=== PATIENT | female | born 1975 | race Caucasian/White ===

== ENCOUNTER 2023-05-18 19:30 | Emergency (ER) | payer BC, SELFPAY ==
[2023-05-18 19:39] VITALS: BP 124/90; PULSE 99; RESP 16; TEMP 36.6; O2SAT 99; BMI 38.6
--- NOTE | 2023-05-18 19:59 | ED_ITS ---
HPI - Eye Problem General Stated complaint: UPPER EXTREMITY PAIN L EYE Time Seen by Provider: 05/18/23 19:55 Source: patient Mode of arrival: walk-in Limitations: no limitations History of Present Illness HPI Narrative: seen this past Saturday for a sty left eye lid and given ointment by urgent care. has not improved and now the left upper eyelid is swollen. Eye swollen shut. She is able to manually open her eye and then she can see. she does not have much pain because she has an unexplained numbness of her left face for the past year or longer etiology still remains unclear. she is followed by neurology. No headache or dizziness Related Data Allergies Allergy/AdvReac Type Severity Reaction Status Date / Time aspirin AdvReac Verified 05/18/23 19:38 Review of Systems ROS Status of ROS 10 or more systems reviewed and unremark able except as noted in history and below [facility] Social History Smoking status: Never smoker Exam Constitutional Vital Signs, click to edit/add: Last Vital Signs Temp 97.8 F 05/18/23 19:39 Pulse 99 H 05/18/23 19:39 Resp 16 05/18/23 19:39 BP 124/90 05/18/23 19:39 Pulse Ox 99 05/18/23 19:39 Common normals: no apparent distress, average body habitus, oriented x3, no limitations, healthy appearing, alert and well nourished [facility] Common normals: normocephalic and head/scalp atraumatic Eye Common normals: PERRL, EOMs intact bilaterally and conjunctivae normal Other: left upper eyelid is erythematous and swollen. mild tenderness. no photophobia Respiratory Common normals: normal respiratory effort, no retractions, no use of accessory muscles and clear to auscultation bilaterally Cardio Common normals: regular rate, regular rhythm, S1 normal heart sound and S2 normal heart sound Extremity Common normals: normal to inspection and full ROM Neuro Common normals: oriented x3, CN's II-XII intact bilaterally, moves all extremities and no focal motor deficits Psych Appearance: grossly normal Course Vital Signs Vital signs: Vital Signs Temperature 97.8 F 05/18/23 19:39 Pulse Rate 99 H 05/18/23 19:39 Respiratory Rate 16 05/18/23 19:39 Blood Pressure 124/90 05/18/23 19:39 Pulse Oximetry 99 05/18/23 19:39 Temperature 97.8 F 05/18/23 19:39 Pulse Rate 99 H 05/18/23 19:39 Respiratory Rate 16 05/18/23 19:39 Blood Pressure 124/90 05/18/23 19:39 Pulse Oximetry 99 05/18/23 19:39 MDM - Eye Problem MDM Narrative Medical decision making narrative: patient presents with infection of the left upper eyelid that apparently started as a sty. Patient given injection of Rocephin and discharged home with Augmentin. Advised of close follow up Discharge Plan Discharge Chief Complaint: Eye Problems Clinical Impression: Cellulitis of left upper eyelid Patient Disposition: Home, Self-Care Instructions: Cellulitis (ED) Additional Instructions: have eye rechecked in a couple of days. Return if any worsening Stand Alone Forms: Portal Instructions Referrals: Physician,Non-Staff, MD [Primary Care Provider] - 1 week
[2023-05-18] MEDS: CEFTRIAXONE 1,000 MG, LIDOCAINE HCL/PF 2.1 ML IM (20:32)
== END 2023-05-18 20:44 | disposition home or self-care (01) ==
PROVIDERS: Emergency Provider Internal Medicine
DX: H00.034 Abscess of left upper eyelid (principal)
CPT/HCPCS: 96372; 99284; J0696

== ENCOUNTER 2023-06-08 20:32 | Emergency (ER) | payer BC, SELFPAY ==
[2023-06-08 20:36] VITALS: BP 142/78; PULSE 83; RESP 16; TEMP 36.7; O2SAT 96; BMI 38.6
--- OUTSIDE RECORDS SUMMARY | 2023-06-08 20:40 | XMS_ITS | CCD ---
Author Name Unknown Address [address] [facility] [address] [address] [place] [address] Organization [facility] Care Team Providers Care Net Developer Consultant Name Role Phone Xie, Kaley R Unavailable Unavailable Xie, Kaley R Unavailable Unavailable Xie, Kaley R Unavailable Unavailable BARBIE, DR BERNAL Primary Care Unavailable PAY, DR RIVERA Admitting Unavailable PAY, DR RIVERA Attending Unavailable WEST, DR BRENNEN Dow Consulting Unavailable PAY, DR RIVERA Consulting Unavailable AHMEDJUDITH Consulting Unavailable KAPLER, TALIB Admitting Unavailable KAPAYLEEN, TALIB Attending Unavailable BARBIE, DR BERNAL Primary Care Unavailable EMMA, DR LUCILLE Patel Consulting Unavailable KAPLER, TALIB Consulting Unavailable BARBIE, DR BERNAL Primary Care Unavailable REINECK, DR LIYA Muñoz Admitting Unavailabl e REINECK, DR LIYA Muñoz Attending Unavailabl e REINECK, DR LIYA Muñoz Consulting Unavailabl e BARBIE, DR BERNAL Primary Care Unavailable REINECK, DR LIYA Muñoz Admitting Unavailabl e REINECK, DR LIYA Muñoz Attending Unavailabl e REINECK, DR LIYA Muñoz Consulting Unavailabl e BARBIE, DR BERNAL Primary Care Unavailable GABBY REYNOLDS Consulting Unavailable SHANTE, JUANJOSE Admitting Unavailable SHANTE, JUANJOSE Attending Unavailable SHANTE, JUANJOSE Admitting Unavailable SHANTE, JUANJOSE Attending Unavailable TMARA, DR LAZARO LISTED Primary Care UnavailGABBY Olivera Consulting Unavailable BRENNEN ZULETA Consulting Unavailable Provider, None Primary Care Provider Unavailabl AMERICO Medeiros Admitting Unavailable AMERICO CADET Attending Unavailable QUENTIN LARIOS Referring Unavailable PROVIDER, NONE Primary Care Unavailable QUENTIN LARIOS Referring Unavailable PROVIDER, NONE Primary Care Unavailable Charmaine Tomlin MD Primary Care Provider Americo Cadet Unavailable DIVINA GRIFFIN Attending Unavailable FISH CALDWELL Referring Unavailable HOY, CHARMAINE M Primary Care Unavailable HOY, CHARMAINE M Primary Care Unavailable NAJM, IMAD Attending Unavailable NAJM, IMAD Admitting Unavailable HOY, CHARMAINE M Primary Care Unavailable WARBEL, SIN Referring Unavailable HOY, CHARMAINE M Primary Care Unavailable Soriano, Charlene Unavailable Soriano, DO Charlene A Primary Care Provider Soriano, DO Charlene A Attending Provider [phone] MD Americo Cadet Attending Provider Blades, Ele Unavailable Soriano, DO Charlene A Primary Care Provider Christie, DO Charlene A Attending Provider MD Ele Dubose Attending Provider [phone] Soriano, DO Charlene A Primary Care Provider MD Camacho Koch Attending Provider DO Aidan More [facility] Cadet MD, Americo B Unavailable Karly Roberts Unavailable Soriano, DO Charlene A Primary Care Provider DO Schuyler Lazar Emergency Provider DO Aidan More Emergency Provider DO Peggy Grier Emergency Provider Soriano, Charlene A Primary Care Unavailable Blades, Ele A Admitting Unavailable Blades, Ele A Attending Unavailable Christie, Charlene A Primary Care Unavailable Camacho Koch Admitting Unavailable Camacho Koch Attending Unavailable Soriano, Charlene A Primary Care Unavailable Soriano, Charlene A Attending Unavailable Soriano, Charlene A Admitting Unavailable Soriano, Charlene A Primary Care Unavailable Peggy Marks Admitting Unavailable Peggy Marks Attending Unavailable Aidan More Admitting Unavailable Aidan More Attending Unavailable Christie, Charlene A Primary Care Unavailable Schuyler Lazar Admitting Unavailable Schuyler Lazar Attending Unavailable Soriano, Charlene A Primary Care Unavailable Aidan More Admitting Unavailable Aidan More Attending Unavailable Charlene Soriano Primary Care Unavailable Charlene Soriano Primary Care Unavailable Charlene Soriano Attending Unavailable Charlene Soriano Admitting Unavailable Charlene Soriano Primary Care Unavailable Americo Cadet Admitting Unavailable Americo Cadet Attending Unavailable Allergies Allergy Classification Reported Allergen(s) Allergy Type Date of Onset Reaction(s) Facility (20 sources) Aspirin; Translations: [ASPIRIN] Drug Allergy 04-28-2020 Intolerance [facility] (9 sources) venom-honey bee; Translations: [venom-honey bee] Allergy to substance 02-21-2021 Swelling [facility] (1 source) Aspirin Drug Allergy 04-09-2023 [facility] Repository Medications Current Medications Medication Drug Class(es) Dates Sig (Normalized) Sig (Original) Acetaminophen (1 source) Start: 11-27-2021 acetaminophen (TYLENOL) tablet 650 mg [id number] actuat albuterol 0.09 mg/actuat metered dose inhaler (14 sources) beta2-Adrenergic Agonist Start: 02-20-2021 take 1 puff(s) by inhalation once Albuterol Sulfate Active 2 PUFF INHALATION Once February 20, 2021 12:00am albuterol HFA (P ROVENTIL HFA, VENTOLIN HFA) 90 mcg/actuation inhaler Ventolin HFA 90 mcg/actuation aerosol inhaler 0 Active albuterol sulfat e HFA (PROVENTIL;VENTOLIN;PROAIR) 108 (90 Base) MCG/ACT inhaler Ventolin HFA 90 mcg/actuation aerosol inhaler 0 Active Comment on above: Ventolin HFA 90 mcg/ actuation aerosol inhaler famotidine 40 mg oral tablet (3 sources) Histamine-2 Receptor Antagonist Start: take 1 tablet by mouth once daily Famotidine (Pepcid) 40 mg tablet Active 40 MG PO Daily March 16, 2023 12:00am hydrocortisone 25 mg/ml topical cream (3 sources) Corticosteroid Start: Hydrocortisone Active 1 APPLIC TOPICAL Three times daily March 16, 2023 12:00am lamoTRIgine 100 mg oral tablet (20 sources) Mood Stabilizer, Anti-epileptic Agent Start: 023 take 100 mg by mouth twice daily Lamotrigine Active 100 MG PO Twice daily November 20, 2022 11:00pm Start: 03-09-2022 lamoTRIgine (L AMICTAL) 25 mg tablet PLEASE SEE ATTACHED FOR DETAILED DIRECTIONS 0 03/09/2022 Active Start: 11-16-2021 LAMICTAL 25 MG tablet Week 1 and 2: 25 mg/day; Weeks 3 and 4: 50 mg/day; Week 5: 50 mg BID, Week 6: 50 mg am and 100 mg HS, Week 7: 100 mg BID 120 tablet 3 11/16/2021 Active Comment on above: PLEASE SEE ATTACHED FOR DETAILED DIRECTIONS levothyroxine sodium 0.137 mg oral tablet (20 sources) l-Thyroxine Start: 05-10-19 End: 06-10-19 take 1 capsule by mouth once daily before breakfast levothyroxine 137 mcg cap Take 1 capsule by mouth daily before breakfast. Please follow up with primary care doctor for more prescription 30 capsule 0 05/10/2022 06/09/2022 Active Start: 01-23-2021 End: 08-12-2022 take 137 ug by mouth once daily Levothyroxine Active 1 37 MCG PO Daily January 22, 2021 11:00pm take 1 tablet by kolton th once daily in the morning Synthroid 137 MCG 1 tablet on an empty stomach in the morning Orally Once a day for 90 days Active Comment on above: Take 1 capsule by mo uth daily before breakfast. Please follow up with primary care doctor for more prescription Take 1 tablet by kolton th daily before breakfast. 1 ml LORazepam 2 mg/ml injection (9 sources) Benzodiazepine Start: 11-27-2021 LORazepam (ATIVAN) injection 1 mg Start: 01-23-2021 End: 02-20-2021 take 0.5 mg by mouth twice daily Lorazepam Discontinued 0.5 MG PO Twice daily January 22, 2021 11:00pm February 20, 2021 8:37am ondansetron (ZOFRAN-ODT) disintegrating tablet 4 mg (1 source) Start: 11-27-2021 ondansetron (Z OFRAN-ODT) disintegrating tablet 4 mg predniSONE 10 mg oral tablet (5 sources) Start: 03-16-2023 prednisone 10 mg 5 tablets for 2 days, 4 tablets x2 days, then 3 x2 days, 2 x2 days, 1 x2 days Orally as directed for 10 days Mar, Active Start: 03-16-2023 take 50 mg by mouth once daily Prednisone Active 50 MG PO Daily 7 March 16, 2023 12:00am rimegepant 75 mg disintegrating oral tablet (2 sources) Start: 04-09-2023 take 1 tablet by mouth once daily as needed Nurtec 75 MG 1 tablet on the tongue and allow to dissolve PRN migraine Orally daily for 30 days Apr, Active Completed/Discontinued Medications Medication Drug Class(es) Dates Sig (Normalized) Sig (Original) acyclovir 400 mg oral tablet (8 sources) Herpesvirus Nucleoside Analog DNA Polymerase Inhibitor, Herpes Simplex Virus Nucleoside Analog DNA Polymerase Inhibitor, Herpes Zoster Virus Nucleoside Analog DNA Polymerase Inhibitor Start: 01-23-2021 End: 02-20-2021 take 400 mg by mouth five times daily Acyclovir Discontinued 400 MG PO 5 times per day January 22, 2021 11:00pm February 20, 2021 8:37am DULoxetine 30 mg delayed release oral capsule (20 sources) Serotonin and Norepinephrine Reuptake Inhibitor Start: 11-28-2021 take 1 capsule by mouth once daily in the morning 120 mg, Oral, EVERY MORNING, First dose on Sat11/28/21 at 0900, Until Discontinued Do not crush or break. May add contents of capsule to apple juice or apple sauce, but not chocolate. Start: 01-23-2021 take 120 mg by mouth once danitza y Duloxetine Active 120 MG PO Daily January 22, 2021 11:00pm take 2 capsules by m outh every twenty-four hours Cymbalta 60 MG 2 capsules Orally Once a day for 90 days Active DULoxetine (CYMB MIK) 60 mg capsule Take 60 mg by mouth. 0 Active Comment on above: Take 60 mg by mouth. 0.4 ml enoxaparin sodium 100 mg/ml prefilled syringe (1 source) Low Molecular Weight Heparin Start: 11-28-19 inject 40 mg by subcutaneous injection once daily 40 mg, SubCUTAneous, DAILY, First dose on Sat11/27/21 at 1445, Until Discontinued Indication of Use: Prophylaxis-DVT/PE levETIRAcetam 1000 mg oral tablet (10 sources) Start: 08-24-19 End: 11-30-19 take 1 tablet by mouth twice daily levETIRAcetam (KEPPRA) 1000 MG tablet TAKE 1 TABLET BY MOUTH TWICE A DAY 0 08/23/2021 11/29/2021 Discontinued (Stop Taking at Discharge) Start: 02-22-2021 End: 11-21-2022 take 1 dose by mouth twice daily Levetiracetam Discontinued 500 MG PO Twice daily 60 February 22, 2021 12:00am November 21, 2022 1:19am further refills, or dose adjustment, per neurology. methylPREDNISolone 4 mg oral tablet (8 sources) Corticosteroid Start: 01-23-2021 End: 02-20-2021 Methylprednisolone Discontinued 4 MG PO As Directed January 22, 2021 11:00pm February 20, 2021 8:37am mirtazapine 7.5 mg oral tablet (8 sources) Start: 02-22-2021 End: 11-21-2022 take 1 dose by mouth once daily at bedtime Mirtazapine Discontinued 7.5 MG PO Daily at bedtime February 22, 2021 12:00am November 21, 2022 1:20am further refills, or dose adjustment, per PCP, psychiatry, or neurology. polyethylene glycol [id number] mg powder for oral solution (1 source) Osmotic Laxative Start: 11-27-2021 17 g, Oral, DAILY PRN, Starting on Sat11/27/21 at 1426, Until Discontinued, Constipation First line therapy for constipation rOPINIRole 1 mg oral tablet (20 sources) Nonergot Dopamine Agonist Start: 11-27-2021 take 4 mg by mouth once daily 4 mg, Oral, NIGHTLY, First dose on Sat11/27/21 at 2100, Until Discontinued Start: 01-23-2021 take 4 mg by mouth at bedtime Ropinirole Active 4 MG PO Bedtime January 22, 2021 11:00pm Start: 07-19-2016 rOPINIRole (RE QUIP) 4 mg tablet q 24 HR. 0 07/19/2016 Active Comment on above: q 24 HR. 5 ml sodium chloride 9 mg/ml injection (3 sources) Start: 11-27-2021 take 1 dose intravenously twice daily 5-40 mL, IntraVENous, EVERY 12 HOURS SCHEDULED (2 times per day), First dose on Sat11/27/21 at 2100, Until Discontinued For Line Patency: Peripheral IV = 5 mL; Midline or Central Line = 10 mL/lumen. &nb sp;If following IV push medication, administer flush at same rate as the IV push. Flush volume is determined by type of infusion therapy being given. For non-viscous solutions use: Peripheral IV = 5 mL Midline or Central Line = 10 mL/lumen Fo r viscous solutions (i.e. blood components, parenteral nutrition, contrast media, or after obtaining blood sample) use: Peripheral IV = 10 mL Midline or Central Line = 20 mL/lumen Start: 11-27-2021 IntraVENous, a t 5-250 mL/hr, PRN, if patient receiving piggyback infusions and maintenance fluids are not ordered OR KVO fluids to protect IV site / prevent frequent line interruptions/ long duration, Starting on Sat11/27/21 at 1426 For piggyback infusion, administer at same rate as piggyback for a total of 25 mL. Enter 25 mL into dose field and piggyback rate into rate field of order. If piggyback is infusing at a rate less than 100 mL/hr, enter 25 mL into dose field and 100 mL/hr into rate field of order. For KVO fluids, enter rate of 20 mL/hr or less into rate field of order. Start: 11-27-2021 take 5-40 mL intrave nously once as needed 5-40 mL, IntraVENous, PRN, Starting on Sat11/27/21 at 1426, Until Discontinued, Line Care, After every IV line use For Line Patency: Peripheral IV = 5 mL; Midline or Central Line = 10 mL/lumen. If following IV push medication, administer flush at same rate as the IV push. Flush volume is determined by type of infusion therapy being given. For non-viscous solutions use: Peripheral IV = 5 mL Midline or Central Line = 10 mL/lumen For viscous solutions (i.e. blood components, parenteral nutrition, contrast media, or after obtaining blood sample) use: Peripheral IV = 10 mL Midline or Central Line = 20 mL/lumen triamcinolone acetonide 40 mg/ml injectable suspension (4 sources) Corticosteroid Start: 03-16-2023 Kenalog-40 Mar, 60 mg divalproex sodium 500 mg delayed release oral tablet (8 sources) Mood Stabilizer, Anti-epileptic Agent Start: 02-20-2021 End: 02-22-2021 take 500 mg by mouth twice daily Divalproex Discontinued 500 MG PO Twice daily February 20, 2021 12:00am February 22, 2021 4:23pm Problems Active Problems Problem Classification Problem Date Documented Da te Episodic/Chronic Abdominal pain (16 sources) Generalized abdominal pain; Translations: [Generalized abdominal pain] Episodic Acute bronchitis (1 source) Acute bronchitis, unspecified; Translations: [ACUTE BRONCHITIS UNSPECIFIED] Onset: 09-21-2021 Episodic Allergic reactions (4 sources) Urticaria, unspecified; Translations: [Allergic reaction] Episodic Asthma (4 sources) Asthma; Translations: [Unspecified asthma, uncomplicated] Onset: 05-08-2022 05-08-2022 Chronic Epilepsy; convulsions (20 sources) Other generalized epilepsy and epileptic syndromes, not intractable, without status epilepticus; Translations: [Epilepsy] Onset: 11-30-2020 Chronic Epilepsy; convulsions (19 sources) Unspecified convulsions; Translations: [Neurological finding] Onset: 01-02-2021 Episodic Headache; including migraine (7 sources) Migraine without aura, not intractable, without status migrainosus; Translations: [Migraine] Onset: 12-16-2020 03-25-2023 Chronic Headache; including migraine (4 sources) Headache; Translations: [Headache] 11-21-2022 Episodic Headache; including migraine (1 source) Headache; including migraine; Translations: [Headache, unspecified] Onset: 03-25-2023 Miscellaneous mental health disorders (13 sources) Conversion disorder with seizures or convulsions; 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] Onset: 12-16-2020 05-08-2022 Chronic Mood disorders (8 sources) Depressive disorder; Translations: [Depression] 02-22-2021 Chronic Nausea and vomiting (16 sources) Nausea and vomiting; Translations: [Nausea with vomiting, unspecified] Episodic Other aftercare (1 source) Other skilled nursing (current) drug therapy; Translations: [OTH CARDIOLOGY TECHNICIAN CURRENT DRUG THERAPY] Onset: 09-21-2021 Episodic Other connective tissue disease (4 sources) History of repair of hip joint; Translations: [Presence of unspecified artificial hip joint] Onset: 05-08-2022 05-08-2022 Chronic Other connective tissue disease (1 source) Facial weakness; Translations: [FACIAL WEAKNESS] Onset: 08-02-2021 Episodic Other gastrointestinal disorders (16 sources) Abdominal bloating; Translations: [Abdominal distension (gaseous)] Episodic Other hereditary and degenerative nervous system conditions (4 sources) Extrapyramidal and movement disorder, unspecified; Translations: [EXTRAPYRAMIDAL MOVEMNT DISORDER UNS] Onset: 11-20-2020 Chronic Other hereditary and degenerative nervous system conditions (8 sources) Restless legs; Translations: [Restless legs syndrome] 02-20-2021 Chronic Other nervous system disorders (4 sources) Carpal tunnel syndrome; Translations: [Carpal tunnel syndrome, unspecified upper limb] Onset: 05-08-2022 05-08-2022 Chronic Other nervous system disorders (1 source) Other speech disturbances; Translations: [OTHER SPEECH DISTURBANCES] Onset: 08-02-2021 Episodic Other nervous system disorders (1 source) Abnormal involuntary movement; Translations: [Unspecified abnormal involuntary movements] Episodic Other nervous system disorders (12 sources) Figueroa's palsy; 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] Onset: 05-08-2022 05-08-2022 Episodic Other nervous system disorders (1 source) Unspecified abnormal involuntary movements; Translations: [Unspecified abnormal involuntary movements] Onset: 05-08-2022 Episodic Other nutritional; endocrine; and metabolic disorders (1 source) Obesity, unspecified; Translations: [OBESITY UNSPECIFIED] Onset: 08-02-2021 Chronic Other nutritional; endocrine; and metabolic disorders (1 source) Body mass index (BMI) 36.0-36.9, adult; Translations: [BODY MASS INDEX BMI 36.0-36.9 ADULT] Onset: 08-02-2021 Chronic Other nutritional; endocrine; and metabolic disorders (19 sources) Body mass index 40+ - severely obese; Translations: [Morbid (severe) obesity due to excess calories] Onset: 05-10-2022 05-10-2022 Chronic Other nutritional; endocrine; and metabolic disorders (4 sources) Hypophosphatemia; Translations: [Other disorders of phosphorus metabolism] 11-21-2022 Chronic Other nutritional; endocrine; and metabolic disorders (4 sources) Hypomagnesemia; Translations: [Hypomagnesemia] 11-21-2022 Chronic Other screening for suspected conditions (not mental disorders or infectious disease) (16 sources) CT of abdomen abnormal; Translations: [Abnormal findings on diagnostic imaging of other abdominal regions, including retroperitoneum] Episodic Other skin disorders (1 source) Rash and other nonspecific skin eruption; Translations: [Rash and other nonspecific skin eruption] Onset: 03-17-2023 Episodic Residual codes; unclassified (4 sources) Obstructive sleep apnea syndrome; Translations: [Obstructive sleep apnea (adult) (pediatric)] Onset: 05-08-2022 05-08-2022 Chronic Residual codes; unclassified (4 sources) Altered mental status, unspecified; Translations: [ALTERED MENTAL STATUS UNSPECIFIED] Onset: 07-31-2021 Episodic Residual codes; unclassified (8 sources) Transient alteration of awareness; Translations: [Transient alteration of awareness] 02-20-2021 Episodic Spondylosis; intervertebral disc disorders; other back problems (13 sources) Cervical disc disorder; Translations: [Cervical disc disorder, unspecified, unspecified cervical region] Chronic Substance-related disorders (13 sources) Tobacco user; Translations: [Nicotine dependence, unspecified, uncomplicated] Chronic Thyroid disorders (20 sources) Hypothyroidism, unspecified; Translations: [Hypothyroidism] Onset: 09-21-2021 05-08-2022 Chronic Unclassified (3 sources) COUGH, UNSPECIFIED; Translations: [COUGH, UNSPECIFIED] Onset: 09-21-2021 Unclassified (1 source) CONTACT W/AND (SUSP) EXPOS COVID-19; Translations: [CONTACT W/AND (SUSP) EXPOS COVID-19] Onset: 09-21-2021 Viral infection (16 sources) Disease caused by 2019-nCoV; Translations: [COVID-19] 02-23-2021 Episodic Viral infection (1 source) Disease caused by 2019-nCoV; Translations: [UNVACCINATED COVID 19] Onset: 09-21-2021 Past or Other Problems Problem Classification Problem Date Documented Date Episodic/Chronic Immunizations and screening for infectious disease (2 sources) Other specified abnormal immunological findings in serum; Translations: [Raised antibody titer] Onset: 11-07-2022 Episodic Other nervous system disorders (1 source) Other abnormal involuntary movements; Translations: [Other abnormal involuntary movements] Onset: 11-21-2022 Episodic Other nervous system disorders (1 source) Paresthesia of skin; Translations: [Paresthesia of skin] Onset: 07-31-2022 Episodic Spondylosis; intervertebral disc disorders; other back problems (8 sources) Radiculopathy, cervical region; Translations: [Cervicalgia] Onset: 07-11-2022 Episodic Unclassified (1 source) COUGH, UNSPECIFIED; Translations: [COUGH, UNSPECIFIED] Onset: 09-19-2021 Results Test Name Value Interpretation Reference Range Facility Alanine aminotransferase [En zymatic activity/volume] in Serum or PlasmaOrdered By: Peggy Marks on 03-29-2023 ALT [Catalytic activity/Vol] 13 U/L 7-52 [facility] Albumin [Mass/volume] in Ser um or Plasma by Bromocresol green (BCG) dye binding methoOrdered By: Peggy Marks on 03-29-2023 Albumin BCG dye [Mass/Vol] 4.0 g/dL 3.5-5.7 [facility] Alkaline phosphatase [Enzyma tic activity/volume] in Serum or PlasmaOrdered By: Peggy Marks on 03-29-2023 ALP [Catalytic activity/Vol] 62 U/L 34-104 [facility] Aspartate aminotransferase [ Enzymatic activity/volume] in Serum or PlasmaOrdered By: Peggy Marks on 03-29-2023 AST [Catalytic activity/Vol] 12 U/L 13-39 [facility] Basophils Auto (Bld) [#/Vol] Ordered By: Peggy Marks on 03-29-2023 Basophils (Bld) [#/Vol] 0.1 10*3/uL 0.0-0.2 [facility] Basophils/100 WBC Auto (Bld) Ordered By: Peggy Marks on 03-29-2023 Basophils/100 WBC (Bld) 0.8 % . [facility] Bilirubin.total [Mass/volume ] in Serum or PlasmaOrdered By: Peggy Marks on 03-29-2023 Bilirubin [Mass/Vol] 0.4 mg/dL 0.3-1.0 [facility] Calcium [Mass/volume] in Ser um or PlasmaOrdered By: Peggy Marks on 03-29-2023 Calcium [Mass/Vol] 9.5 mg/dL 8.6-10.[address] [facility] Carbon dioxide, total [Moles /volume] in Serum or PlasmaOrdered By: Peggy Marsk on 03-29-2023 CO2 [Moles/Vol] 23.8 mmol/L 21.0-31.0 [facility] Chloride [Moles/volume] in S madelaine or PlasmaOrdered By: Peggy Marks on 03-29-2023 Chloride [Moles/Vol] 107 mmol/L 98-107 [facility] Complete Blood Count Auto Di ffon 03-29-2023 Basophils (Bld) [#/Vol] 0.1 10*3/uL Normal 0.0-0.2 [facility] Comment on above: Result Comment: PERF ORMED BY: [facility] [address] [place] [address] PATHOLOGIST SHAPE BRICK MOLDER MARY LOPEZ M.D. Performed By: #### C MP, CBC ####[address] Basophils/100 WBC (Bld) 0.8 % Normal . [facility] Comment on above: Performed By: #### C MP, CBC ####[address] Eosinophils (Bld) [#/Vol] 0.3 10*3/uL Normal 0.0-0.45 [facility] Comment on above: Performed By: #### C MP, CBC ####[address] Eosinophils/100 WBC (Bld) 2.0 % Normal . [facility] Comment on above: Performed By: #### C MP, CBC ####[address] Erythrocyte distribution width (RBC) [Ratio] 15.3 % Normal 11.9-15.3 [facility] Comment on above: Performed By: #### C MP, CBC ####[address] Hematocrit (Bld) [Volume fraction] 40.7 % Normal 34.0-46.4 [facility] Comment on above: Performed By: #### C MP, CBC ####[address] Hemoglobin (Bld) [Mass/Vol] 13.4 g/dL Normal 11.8-15.4 [facility] Comment on above: Performed By: #### C MP, CBC ####[address] Lymphocytes (Bld) [#/Vol] 3.1 10*3/uL Normal 1.00-4.8 [facility] Comment on above: Performed By: #### C MP, CBC ####[address] Lymphocytes/100 WBC (Bld) 22.4 % Normal . [facility] Comment on above: Performed By: #### C MP, CBC ####[address] MCH (RBC) [Entitic mass] 27.6 pg Normal 24.7-34.3 [facility] Comment on above: Performed By: #### C MP, CBC ####[address] MCV (RBC) [Entitic vol] 83.7 fL Normal 80-100 [facility] Comment on above: Performed By: #### C MP, CBC ####[address] Mean Corpuscular HGB Conc 33.0 g/dL Normal 32.0-35.0 [facility] Comment on above: Performed By: #### C MP, CBC ####[address] Monocytes (Bld) [#/Vol] 0.8 10*3/uL Normal 0.0-0.8 [facility] Comment on above: Performed By: #### C MP, CBC ####[place] [id number] [facility] Monocytes/100 WBC (Bld) 19.64 % Normal 0.00-20.00 [facility] Comment on above: Performed By: #### C MP, CBC ####[address] Monocytes/100 WBC (Bld) 5.8 % Normal . [facility] Comment on above: Performed By: #### C MP, CBC ####[address] Neutrophils (Bld) [#/Vol] 9.4 10*3/uL High 1.8-7.7 [facility] Comment on above: Performed By: #### C MP, CBC ####[address] Neutrophils/100 WBC (Bld) 69.0 % Normal . [facility] Comment on above: Performed By: #### C MP, CBC ####[address] NRBC% 0.0 /100{WBC} Normal 0-0.5 [facility] Comment on above: Performed By: #### C MP, CBC ####[place] [id number] [facility] Platelet mean volume (Bld) [Entitic vol] 8.6 fL Normal 6.3-10.7 [facility] Comment on above: Performed By: #### C MP, CBC ####[place] [id number] [facility] Platelets (Bld) [#/Vol] 438 10*3/uL Normal 150-450 [facility] Comment on above: Performed By: #### C MP, CBC ####[place] [id number] [facility] RBC (Bld) [#/Vol] 4.86 10*6/uL Normal 3.60-5.00 [facility] Comment on above: Performed By: #### C MP, CBC ####[place] [address] [place] [address] [facility] WBC (Bld) [#/Vol] 13.7 10*3/uL High 3.8-11.6 [facility] Comment on above: Performed By: #### C MP, CBC ####[address] [address] [facility] Comprehensive Metabolic Pane mildred 03-29-2023 Albumin [Mass/Vol] 4.0 g/dL Normal 3.5-5.[address] [facility] Comment on above: Performed By: #### C MP, CBC ####[address] [address] [facility] Albumin/Globulin [Mass ratio] 1.3 {ratio} Normal [facility] Comment on above: Performed By: #### C MP, CBC ####[address] [address] [facility] ALP [Catalytic activity/Vol] 62 U/L Normal 34-104 [facility] Comment on above: Performed By: #### C MP, CBC ####[address] [address] [facility] ALT [Catalytic activity/Vol] 13 U/L Normal 7-52 [facility] Comment on above: Performed By: #### C MP, CBC ####[address] [address] [facility] Anion gap [Moles/Vol] 11.8 mmol/L Normal 6.0-15.0 [facility] Comment on above: Performed By: #### C MP, CBC ####[address] [address] [facility] AST [Catalytic activity/Vol] 12 U/L Low 13-39 [facility] Comment on above: Performed By: #### C MP, CBC ####[address] [place] [address] [facility] Bilirubin [Mass/Vol] 0.4 mg/dL Normal 0.3-1.0 [facility] Comment on above: Performed By: #### C MP, CBC ####[place] [id number] [facility] Calcium [Mass/Vol] 9.5 mg/dL Normal 8.6-10.[address] [facility] Comment on above: Performed By: #### C MP, CBC ####[place] [id number] [facility] Chloride [Moles/Vol] 107 mmol/L Normal 98-107 [facility] Comment on above: Performed By: #### C MP, CBC ####[place] [id number] [facility] CO2 [Moles/Vol] 23.8 mmol/L Normal 21.0-31.0 [facility] Comment on above: Performed By: #### C MP, CBC ####[place] [id number] [facility] Creatinine [Mass/Vol] 0.90 mg/dL Normal 0.60-1.20 [facility] Comment on above: Performed By: #### C MP, CBC ####[place] [id number] [facility] Creatinine Clr Calc Pharmacy 87.78 [facility] Comment on above: Result Comment: PERF ORMED BY: [facility] [address] [place] [id number] PATHOLOGIST SHAPE BRICK MOLDER MARY LOEPZ M.D. Performed By: #### C MP, CBC ####[place] [id number] [facility] GFR/1.73 sq M.predicted MDRD (S/P/Bld) [Vol rate/Area] mL/min/{1.73_m2} [facility] Comment on above: Performed By: #### C MP, CBC ####[place] [id number] [place] Globulin (S) [Mass/Vol] 3.0 g/dL Normal [facility] Comment on above: Performed By: #### C MP, CBC ####[facility] [place] [address] [facility] Glucose [Mass/Vol] 128 mg/dL High 70-[address] [facility] Comment on above: Result Comment: [place] Glucose Reference Range is dependent on time and content of last meal. Glucose of more than 200 mg/dL in a nonstressed, ambulatory subject supports the diagnosis of Diabetes Mellitus. ADA recommended reference range Performed By: #### C MP, CBC ####[place] [address] [place] [address] [facility] Potassium [Moles/Vol] 3.6 mmol/L Normal 3.5-5.1 [facility] Comment on above: Performed By: #### C MP, CBC ####[place] [address] [place] [address] [place] Protein [Mass/Vol] 7.0 g/dL Normal 6.4-8.[address] [facility] Comment on above: Performed By: #### C MP, CBC ####[address] [address] [place] Sodium [Moles/Vol] 139 mmol/L Normal 136-[address] [facility] Comment on above: Performed By: #### C MP, CBC ####[place] [address] [place] [address] [place] Urea nitrogen [Mass/Vol] 12 mg/dL Normal 7-25 [facility] Comment on above: Performed By: #### C MP, CBC ####[place] [address] [place] [address] [place] Creatinine [Mass/volume] in Serum or PlasmaOrdered By: Peggy Marks on 03-29-2023 Creatinine [Mass/Vol] 0.90 mg/dL 0.60-1.20 [facility] ECG 12 lead ECGon 03-29-2023 ECG 12 lead ECG [facility] [place] [address] [place] [id number] Electrocardiograph Report Signed Patient: Gerardo Powell MR#: [id number] 9 : 1975 Acct:[id number] Age/Sex: 48 / F ADM Date: 03/29/23 Loc: ER Room: Type: [facility] ER Attending Dr: Ordering Provider: Peggy Marks DO Date of Service: 03/29/23 ECG/ECG 12 lead ECG: Seizure Copies to: Test Reason : Blood Pressure : 163/082 mmHG Vent. Rate : 058 BPM Atrial Rate : 058 BPM P-R Int : 146 ms QRS Dur : 100 ms QT Int : 444 ms P-R-T Axes : 054 061 058 degrees QTc Int : 435 ms Sinus bradycardia with sinus arrhythmia Otherwise normal ECG When compared with ECG of 21-NOV-2022 01:42, Vent. rate has decreased BY 30 BPM Confirmed by PEGGY MARKS DO ([id number]) on 03/29/2023 11:36:09 PM Referred By: Electronically Signed By:PEGGY MARKS DO Transcribed By: MUS Signed By Peggy Marks DO [id number] Normal [facility] Eosinophils Auto (Bld) [#/Vo l]Ordered By: Peggy Marks on 03-29-2023 Eosinophils (Bld) [#/Vol] 0.3 10*3/uL 0.0-0.45 [facility] Eosinophils/100 WBC Auto (Bl d)Ordered By: Peggy Marks on 03-29-2023 Eosinophils/100 WBC (Bld) 2.0 % . [facility] Erythrocyte distribution wid th Auto (RBC) [Ratio]Ordered By: Peggy Marks on 03-29-2023 Erythrocyte distribution width (RBC) [Ratio] 15.3 % 11.9-15.3 [facility] Globulin Calc (S) [Mass/Vol] Ordered By: Peggy Marks on 03-29-2023 Globulin (S) [Mass/Vol] 3.0 g/dL [facility] Glucose [Mass/volume] in Ser um or PlasmaOrdered By: Peggy Marks on 03-29-2023 Glucose [Mass/Vol] 128 mg/dL 70-[address] [facility] Comment on above: ADA recommended refe rence rangeRandom Glucose Reference Range is dependent on time and content of last meal. Glucose of more than 200 mg/dL in a nonstressed, ambulatory subject supports the diagnosis of Diabetes Mellitus. Hematocrit Auto (Bld) [Volum e fraction]Ordered By: Peggy Marks on 03-29-2023 Hematocrit (Bld) [Volume fraction] 40.7 % 34.0-46.4 [facility] Hemoglobin [Mass/volume] in BloodOrdered By: Peggy Marks on 03-29-2023 Hemoglobin (Bld) [Mass/Vol] 13.4 g/dL 11.8-15.4 [facility] Leukocytes [#/volume] correc travis for nucleated erythrocytes in Blood by Automated counOrdered By: Peggy Marks on 03-29-2023 WBC corrected for nucl RBC Auto (Bld) [#/Vol] 13.7 10*3/uL 3.8-11.6 [facility] Lymphocytes Auto (Bld) [#/Vo l]Ordered By: Peggy Marks on 03-29-2023 Lymphocytes (Bld) [#/Vol] 3.1 10*3/uL 1.00-4.8 [facility] Lymphocytes/100 WBC Auto (Bl d)Ordered By: Peggy Marks on 03-29-2023 Lymphocytes/100 WBC (Bld) 22.4 % . [facility] MCH Auto (RBC) [Entitic mass ]Ordered By: Peggy Marks on 03-29-2023 MCH (RBC) [Entitic mass] 27.6 pg 24.7-34.3 [facility] MCHC Auto (RBC) [Mass/Vol]Or dered By: Peggy Marks on 03-29-2023 MCHC (RBC) [Mass/Vol] 33.0 g/dL 32.0-35.0 [facility] MCV Auto (RBC) [Entitic vol] Ordered By: Peggy Marks on 03-29-2023 MCV (RBC) [Entitic vol] 83.7 fL 80-100 [facility] Monocyte distribution width [Entitic volume] in Blood by AutomatedOrdered By: Peggy Marks on 03-29-2023 Monocyte distribution width Auto (Bld) [Entitic vol] 19.64 % 0.00-20.00 [facility] Monocytes Auto (Bld) [#/Vol] Ordered By: Peggy Marks on 03-29-2023 Monocytes (Bld) [#/Vol] 0.8 10*3/uL 0.0-0.8 [facility] Monocytes/100 WBC Auto (Bld) Ordered By: Peggy Marks on 03-29-2023 Monocytes/100 WBC (Bld) 5.8 % . [facility] Neutrophils Auto (Bld) [#/Vo l]Ordered By: Peggy Marks on 03-29-2023 Neutrophils (Bld) [#/Vol] 9.4 10*3/uL 1.8-7.7 [facility] Neutrophils/100 WBC Auto (Bl d)Ordered By: Peggy Marks on 03-29-2023 Neutrophils/100 WBC (Bld) 69.0 % . [facility] No Panel InformationOrdered By: Peggy Marks on 03-29-2023 Estimated GFR (CKD-EPI) > 60.0 mL/Min [facility] Creatinine Clearance (Chem 87.78 [facility] Nucleated erythrocytes [Pres ence] in Blood by Automated countOrdered By: Peggy Marks on 03-29-2023 Nucleated RBC Auto Ql (Bld) 0.0 /100{WBC} 0-0.5 [facility] Platelet mean volume Auto (B ld) [Entitic vol]Ordered By: Peggy Marks on 03-29-2023 Platelet mean volume (Bld) [Entitic vol] 8.6 fL 6.3-10.7 [facility] Platelets Auto (Bld) [#/Vol] Ordered By: Peggy Marks on 03-29-2023 Platelets (Bld) [#/Vol] 438 10*3/uL 150-450 [facility] Potassium [Moles/volume] in Serum or PlasmaOrdered By: Peggy Marks on 03-29-2023 Potassium [Moles/Vol] 3.6 mmol/L 3.5-5.1 [facility] Protein [Mass/volume] in Ser um or PlasmaOrdered By: Peggy Marks on 03-29-2023 Protein [Mass/Vol] 7.0 g/dL 6.4-8.[address] [facility] RBC Auto (Bld) [#/Vol]Ordere d By: Peggy Maira on 03-29-2023 RBC (Bld) [#/Vol] 4.86 10*6/uL 3.60-5.00 [facility] Serum or plasma albumin/glob ulin mass ratioOrdered By: Peggyayala Marks on 03-29-2023 Albumin/Globulin [Mass ratio] 1.3 {ratio} [facility] Serum or plasma anion gap de terminationOrdered By: Peggy Marks on 03-29-2023 Anion gap [Moles/Vol] 11.8 mmol/L 6.0-15.0 [facility] Sodium [Moles/volume] in Ser um or PlasmaOrdered By: Peggy Marks on 03-29-2023 Sodium [Moles/Vol] 139 mmol/L 136-[address] [facility] Urea nitrogen [Mass/volume] in Serum or PlasmaOrdered By: Peggy Marks on 03-29-2023 Urea nitrogen [Mass/Vol] 12 mg/dL 7-25 [facility] WBC Auto (Bld) [#/Vol]Ordere d By: Peggy Maira on 03-29-2023 WBC (Bld) [#/Vol] 13.7 10*3/uL 3.8-11.[address] [facility] [address] head/brain wo conon 03-26 CT head/brain wo [place] [address] CT Scan Report Signed Patient: Gerardo Powell MR#: [id number] 9 : 1975 Acct:[id number] Age/Sex: 48 / F ADM Date: 03/25/23 Loc: ER Room: Type: [facility] ER Attending Dr: Copies to: Aidan More DO Ordering Provider: Aidan More DO Date of Service: 03/25/23 CT/CT head/brain wo con: r/o ich CT BRAIN WITHOUT CONTRAST: CLINICAL HISTORY: Headaches and vomiting COMPARISON: 01/23/2021 TECHNIQUE: Contiguous axial unenhanced images were obtained through the brain. This CT exam was performed using one or more following dose reduction techniques: Automated exposure control, adju stment of the mA and/or kV according to patient size, or use of iterative reconstruction technique. FINDINGS: The ventricles are normal in size and position. There are no areas of abnormal attenuation. There is no hemorrhage, mass effect or extra-axial collections. The imaged paranasal sinuses and mastoid air cells are clear. CT/CT head/brain wo con IMPRESSION: NO ACUTE INTRACRANIAL ABNORMALITY. Impression dictated by: Joan Medina M.D.03/26/2023 7:46 AM Dictation Location: [place] [address] Transcribed By: [facility] 03/26/23745 Dictated By: Joan Medina MD 03/26/23743 Signed By: 03/26/23745 [facility] Basic Metabolic Panelon 03-08 Anion gap [Moles/Vol] 13.6 mmol/L Normal 6.0-15.0 [facility] Comment on above: Performed By: #### B ALONSO, CBC ####[facility] [place] [address] [facility] Calcium [Mass/Vol] 9.3 mg/dL Normal 8.6-10.[address] [facility] Comment on above: Performed By: #### B MP, CBC ####[facility] [place] [address] [place] Chloride [Moles/Vol] 105 mmol/L Normal 98-107 [facility] Comment on above: Performed By: #### B MP, CBC ####[facility] [place] [address] [facility] CO2 [Moles/Vol] 23.0 mmol/L Normal 21.0-31.0 [facility] Comment on above: Performed By: #### B MP, CBC ####[facility] [address] [place] [address] [facility] Creatinine [Mass/Vol] 0.94 mg/dL Normal 0.60-1.20 [facility] Comment on above: Performed By: #### B MP, CBC ####[facility] [place] [id number] [facility] Creatinine Clr Calc Pharmacy 84.04 [facility] Comment on above: Result Comment: PERF ORMED BY: [facility] [address] [place] [address] PATHOLOGIST SHAPE BRICK MOLDER MARY LOPEZ M.D. Performed By: #### B MP, CBC ####[place] [address] GFR/1.73 sq M.predicted MDRD (S/P/Bld) [Vol rate/Area] mL/min/{1.73_m2} [facility] Comment on above: Performed By: #### B MP, CBC ####[place] [address] Glucose [Mass/Vol] 167 mg/dL High 70-[address] [facility] Comment on above: Result Comment: [place] Glucose Reference Range is dependent on time and content of last meal. Glucose of more than 200 mg/dL in a nonstressed, ambulatory subject supports the diagnosis of Diabetes Mellitus. ADA recommended reference range Performed By: #### B MP, CBC ####[place] [address] [place] [id number] [facility] Potassium [Moles/Vol] 3.6 mmol/L Normal 3.5-5.1 [facility] Comment on above: Performed By: #### B MP, CBC ####[address] Sodium [Moles/Vol] 138 mmol/L Normal 136-[address] [facility] Comment on above: Performed By: #### B MP, CBC ####[place] [id number] [facility] Urea nitrogen [Mass/Vol] 12 mg/dL Normal 7-25 [facility] Comment on above: Performed By: #### B MP, CBC ####[place] [id number] [place] Basophils Auto (Bld) [#/Vol] Ordered By: Aidan More on 03-25-2023 Basophils (Bld) [#/Vol] 0.1 10*3/uL 0.0-0.2 [facility] Basophils/100 WBC Auto (Bld) Ordered By: Aidan More on 03-25-2023 Basophils/100 WBC (Bld) 0.7 % . [facility] Calcium [Mass/volume] in Ser um or PlasmaOrdered By: Aidan More on 03-25-2023 Calcium [Mass/Vol] 9.3 mg/dL 8.6-10.[address] [facility] Carbon dioxide, total [Moles /volume] in Serum or PlasmaOrdered By: Aidan More on 03-25-2023 CO2 [Moles/Vol] 23.0 mmol/L 21.0-31.0 [facility] Chloride [Moles/volume] in S madelaine or PlasmaOrdered By: Aidan More on 03-25-2023 Chloride [Moles/Vol] 105 mmol/L 98-107 [facility] Complete Blood Count Auto Di ffon 03-25-2023 Basophils (Bld) [#/Vol] 0.1 10*3/uL Normal 0.0-0.2 [facility] Comment on above: Result Comment: PERF ORMED BY: [place] [address] PATHOLOGIST SHAPE BRICK MOLDER MARY LOPEZ M.D. Performed By: #### B MP, CBC #### [facility] [address] [place] [address] [place] Basophils/100 WBC (Bld) 0.7 % Normal . [facility] Comment on above: Performed By: #### B MP, CBC #### [facility] [address] [place] [address] [place] Eosinophils (Bld) [#/Vol] 0.2 10*3/uL Normal 0.0-0.45 [facility] Comment on above: Performed By: #### B MP, CBC #### [facility] [address] [place] [address] [place] Eosinophils/100 WBC (Bld) 1.2 % Normal . [facility] Comment on above: Performed By: #### B MP, CBC #### [facility] [address] Erythrocyte distribution width (RBC) [Ratio] 15.5 % High 11.9-15.3 [facility] Comment on above: Performed By: #### B MP, CBC #### [facility] [address] Hematocrit (Bld) [Volume fraction] 44.9 % Normal 34.0-46.4 [facility] Comment on above: Performed By: #### B MP, CBC #### [facility] [address] Hemoglobin (Bld) [Mass/Vol] 14.6 g/dL Normal 11.8-15.4 [facility] Comment on above: Performed By: #### B MP, CBC #### [facility] [address] Lymphocytes (Bld) [#/Vol] 3.1 10*3/uL Normal 1.00-4.8 [facility] Comment on above: Performed By: #### B MP, CBC #### [facility] [address] Lymphocytes/100 WBC (Bld) 22.7 % Normal . [facility] Comment on above: Performed By: #### B MP, CBC #### [facility] [address] MCH (RBC) [Entitic mass] 27.4 pg Normal 24.7-34.3 [facility] Comment on above: Performed By: #### B MP, CBC #### [facility] [address] MCV (RBC) [Entitic vol] 83.9 fL Normal 80-100 [facility] Comment on above: Performed By: #### B MP, CBC #### [facility] [address] Mean Corpuscular HGB Conc 32.6 g/dL Normal 32.0-35.0 [facility] Comment on above: Performed By: #### B MP, CBC #### [facility] [address] [place] [address] [place] Monocytes (Bld) [#/Vol] 0.8 10*3/uL Normal 0.0-0.8 [facility] Comment on above: Performed By: #### B MP, CBC #### [facility] [address] [place] [address] [place] Monocytes/100 WBC (Bld) 17.48 % Normal 0.00-20.00 [facility] Comment on above: Performed By: #### B MP, CBC #### [facility] [address] [place] [id number] [place] Monocytes/100 WBC (Bld) 5.5 % Normal . [facility] Comment on above: Performed By: #### B MP, CBC #### [facility] [address] [place] [address] [place] Neutrophils (Bld) [#/Vol] 9.6 10*3/uL High 1.8-7.7 [facility] Comment on above: Performed By: #### B MP, CBC #### [facility] [address] [place] [id number] [place] Neutrophils/100 WBC (Bld) 69.9 % Normal . [facility] Comment on above: Performed By: #### B MP, CBC #### [facility] [address] [place] [id number] [place] NRBC% 0.1 /100{WBC} Normal 0-0.5 [facility] Comment on above: Performed By: #### B MP, CBC #### [facility] [address] [place] [id number] [place] Platelet mean volume (Bld) [Entitic vol] 8.5 fL Normal 6.3-10.7 [facility] Comment on above: Performed By: #### B MP, CBC #### [facility] [address] [place] [address] [place] Platelets (Bld) [#/Vol] 473 10*3/uL High 150-450 [facility] Comment on above: Performed By: #### B MP, CBC #### [facility] [address] RBC (Bld) [#/Vol] 5.35 10*6/uL High 3.60-5.00 [facility] Comment on above: Performed By: #### B MP, CBC #### [facility] [address] WBC (Bld) [#/Vol] 13.7 10*3/uL High 3.8-11.6 [facility] Comment on above: Performed By: #### B MP, CBC #### [facility] [address] Creatinine [Mass/volume] in Serum or PlasmaOrdered By: Aidan More on 03-25-2023 Creatinine [Mass/Vol] 0.94 mg/dL 0.60-1.20 [facility] Eosinophils Auto (Bld) [#/Vo l]Ordered By: Aidan More on 03-25-2023 Eosinophils (Bld) [#/Vol] 0.2 10*3/uL 0.0-0.45 [facility] Eosinophils/100 WBC Auto (Bl d)Ordered By: Aidan More on 03-25-2023 Eosinophils/100 WBC (Bld) 1.2 % . [facility] Erythrocyte distribution wid th Auto (RBC) [Ratio]Ordered By: Aidan More on 03-25-2023 Erythrocyte distribution width (RBC) [Ratio] 15.5 % 11.9-15.3 [facility] Glucose [Mass/volume] in Ser um or PlasmaOrdered By: Aidan More on 03-25-2023 Glucose [Mass/Vol] 167 mg/dL 70-[address] [facility] Comment on above: ADA recommended refe rence rangeRandom Glucose Reference Range is dependent on time and content of last meal. Glucose of more than 200 mg/dL in a nonstressed, ambulatory subject supports the diagnosis of Diabetes Mellitus. Hematocrit Auto (Bld) [Volum e fraction]Ordered By: Aidan More on 03-25-2023 Hematocrit (Bld) [Volume fraction] 44.9 % 34.0-46.4 [facility] Hemoglobin [Mass/volume] in BloodOrdered By: Aidan More on 03-25-2023 Hemoglobin (Bld) [Mass/Vol] 14.6 g/dL 11.8-15.4 [facility] Leukocytes [#/volume] correc travis for nucleated erythrocytes in Blood by Automated counOrdered By: Aidan More on 03-25-2023 WBC corrected for nucl RBC Auto (Bld) [#/Vol] 13.7 10*3/uL 3.8-11.6 [facility] Lymphocytes Auto (Bld) [#/Vo l]Ordered By: Aidan More on 03-25-2023 Lymphocytes (Bld) [#/Vol] 3.1 10*3/uL 1.00-4.8 [facility] Lymphocytes/100 WBC Auto (Bl d)Ordered By: Aidan More on 03-25-2023 Lymphocytes/100 WBC (Bld) 22.7 % . [facility] MCH Auto (RBC) [Entitic mass ]Ordered By: Aidan More on 03-25-2023 MCH (RBC) [Entitic mass] 27.4 pg 24.7-34.3 [facility] MCHC Auto (RBC) [Mass/Vol]Or dered By: Aidan More on 03-25-2023 MCHC (RBC) [Mass/Vol] 32.6 g/dL 32.0-35.0 [facility] MCV Auto (RBC) [Entitic vol] Ordered By: Aidan More on 03-25-2023 MCV (RBC) [Entitic vol] 83.9 fL 80-100 [facility] Monocyte distribution width [Entitic volume] in Blood by AutomatedOrdered By: Aidan More on 03-25-2023 Monocyte distribution width Auto (Bld) [Entitic vol] 17.48 % 0.00-20.00 [facility] Monocytes Auto (Bld) [#/Vol] Ordered By: Aidan More on 03-25-2023 Monocytes (Bld) [#/Vol] 0.8 10*3/uL 0.0-0.8 [facility] Monocytes/100 WBC Auto (Bld) Ordered By: Aidan More on 03-25-2023 Monocytes/100 WBC (Bld) 5.5 % . [facility] Neutrophils Auto (Bld) [#/Vo l]Ordered By: Aidan More on 03-25-2023 Neutrophils (Bld) [#/Vol] 9.6 10*3/uL 1.8-7.7 [facility] Neutrophils/100 WBC Auto (Bl d)Ordered By: Aidan More on 03-25-2023 Neutrophils/100 WBC (Bld) 69.9 % . [facility] No Panel InformationOrdered By: Aidan More on 03-25-2023 Estimated GFR (CKD-EPI) > 60.0 mL/Min [facility] Creatinine Clearance (Chem 84.04 [facility] Nucleated erythrocytes [Pres ence] in Blood by Automated countOrdered By: Aidan More on 03-25-2023 Nucleated RBC Auto Ql (Bld) 0.1 /100{WBC} 0-0.5 [facility] Platelet mean volume Auto (B ld) [Entitic vol]Ordered By: Aidan More on 03-25-2023 Platelet mean volume (Bld) [Entitic vol] 8.5 fL 6.3-10.7 [facility] Platelets Auto (Bld) [#/Vol] Ordered By: Aidan More on 03-25-2023 Platelets (Bld) [#/Vol] 473 10*3/uL 150-450 [facility] Potassium [Moles/volume] in Serum or PlasmaOrdered By: Aidan More on 03-25-2023 Potassium [Moles/Vol] 3.6 mmol/L 3.5-5.1 [facility] RBC Auto (Bld) [#/Vol]Ordere d By: Aidan More on 03-25-2023 RBC (Bld) [#/Vol] 5.35 10*6/uL 3.60-5.00 [facility] Serum or plasma anion gap de terminationOrdered By: Aidan More on 03-25-2023 Anion gap [Moles/Vol] 13.6 mmol/L 6.0-15.0 [facility] Sodium [Moles/volume] in Ser um or PlasmaOrdered By: Aidan More on 03-25-2023 Sodium [Moles/Vol] 138 mmol/L 136-[address] [facility] Urea nitrogen [Mass/volume] in Serum or PlasmaOrdered By: Aidan More on 03-25-2023 Urea nitrogen [Mass/Vol] 12 mg/dL 7-25 [facility] WBC Auto (Bld) [#/Vol]Ordere d By: Aidan More on 03-25-2023 WBC (Bld) [#/Vol] 13.7 10*3/uL 3.8-11.6 [facility] Alanine aminotransferase [En zymatic activity/volume] in Serum or PlasmaOrdered By: Aidan More on 11-21-2022 ALT [Catalytic activity/Vol] 24 U/L 7-52 [facility] Albumin [Mass/volume] in Ser um or Plasma by Bromocresol green (BCG) dye binding methoOrdered By: Aidan More on 11-21-2022 Albumin BCG dye [Mass/Vol] 3.8 g/dL 3.5-5.7 [facility] Alkaline phosphatase [Enzyma tic activity/volume] in Serum or PlasmaOrdered By: Aidan More on 11-21-2022 ALP [Catalytic activity/Vol] 60 U/L 34-104 [facility] Aspartate aminotransferase [ Enzymatic activity/volume] in Serum or PlasmaOrdered By: Aidan More on 11-21-2022 AST [Catalytic activity/Vol] 21 U/L 13-39 [facility] Basophils Auto (Bld) [#/Vol] Ordered By: Aidan More on 11-21-2022 Basophils (Bld) [#/Vol] 0.1 10*3/uL 0.0-0.2 [facility] Basophils/100 WBC Auto (Bld) Ordered By: Aidan More on 11-21-2022 Basophils/100 WBC (Bld) 0.6 % . [facility] Bilirubin.total [Mass/volume ] in Serum or PlasmaOrdered By: Aidan More on 11-21-2022 Bilirubin [Mass/Vol] 0.3 mg/dL 0.3-1.0 [facility] Calcium [Mass/volume] in Ser um or PlasmaOrdered By: Aidan More on 11-21-2022 Calcium [Mass/Vol] 9.3 mg/dL 8.6-10.[address] [facility] Carbon dioxide, total [Moles /volume] in Serum or PlasmaOrdered By: Aidan More on 11-21-2022 CO2 [Moles/Vol] 28.8 mmol/L 21.0-31.0 [facility] Chloride [Moles/volume] in S madelaine or PlasmaOrdered By: Aidan More on 11-21-2022 Chloride [Moles/Vol] 100 mmol/L 98-107 [facility] Complete Blood Count Auto Di ffon 11-21-2022 Basophils (Bld) [#/Vol] 0.1 10*3/uL Normal 0.0-0.2 [facility] Comment on above: Result Comment: PERF ORMED BY: [place] [address] PATHOLOGIST SHAPE BRICK MOLDER MARY LOPEZ M.D. Performed By: #### M G, CMP, PHOS, PRL, CBC #### [facility] [address] Basophils/100 WBC (Bld) 0.6 % Normal . [facility] Comment on above: Performed By: #### M G, CMP, PHOS, PRL, CBC #### [facility] [address] [place] [address] [place] Eosinophils (Bld) [#/Vol] 0.3 10*3/uL Normal 0.0-0.45 [facility] Comment on above: Performed By: #### M G, CMP, PHOS, PRL, CBC #### [facility] [address] [place] [address] [place] Eosinophils/100 WBC (Bld) 2.5 % Normal . [facility] Comment on above: Performed By: #### M G, CMP, PHOS, PRL, CBC #### [address] Erythrocyte distribution width (RBC) [Ratio] 14.7 % Normal 11.9-15.3 [facility] Comment on above: Performed By: #### M G, CMP, PHOS, PRL, CBC #### [address] Hematocrit (Bld) [Volume fraction] 40.9 % Normal 34.0-46.4 [facility] Comment on above: Performed By: #### M G, CMP, PHOS, PRL, CBC #### [address] Hemoglobin (Bld) [Mass/Vol] 13.4 g/dL Normal 11.8-15.4 [facility] Comment on above: Performed By: #### M G, CMP, PHOS, PRL, CBC #### [address] Lymphocytes (Bld) [#/Vol] 2.8 10*3/uL Normal 1.00-4.8 [facility] Comment on above: Performed By: #### M G, CMP, PHOS, PRL, CBC #### [address] Lymphocytes/100 WBC (Bld) 24.4 % Normal . [facility] Comment on above: Performed By: #### M G, CMP, PHOS, PRL, CBC #### [address] MCH (RBC) [Entitic mass] 27.5 pg Normal 24.7-34.3 [facility] Comment on above: Performed By: #### M G, CMP, PHOS, PRL, CBC #### [address] MCV (RBC) [Entitic vol] 83.9 fL Normal 80-100 [facility] Comment on above: Performed By: #### M G, CMP, PHOS, PRL, CBC #### [address] Mean Corpuscular HGB Conc 32.7 g/dL Normal 32.0-35.0 [facility] Comment on above: Performed By: #### M G, CMP, PHOS, PRL, CBC #### [facility] [address] [place] [address] Monocytes (Bld) [#/Vol] 1.0 10*3/uL High 0.0-0.8 [facility] Comment on above: Performed By: #### M G, CMP, PHOS, PRL, CBC #### [address] Monocytes/100 WBC (Bld) 20.09 % High 0.00-20.00 [facility] Comment on above: Result Comment: For adults in ED, MDW > 20.0 may be associated with a higher risk of sepsis during the first 12 hrs of hospital admission Performed By: #### M G, CMP, PHOS, PRL, CBC #### [facility] [address] [place] [address] Monocytes/100 WBC (Bld) 9.0 % Normal . [facility] Comment on above: Performed By: #### M G, CMP, PHOS, PRL, CBC #### [facility] [address] [place] [address] Neutrophils (Bld) [#/Vol] 7.3 10*3/uL Normal 1.8-7.7 [facility] Comment on above: Performed By: #### M G, CMP, PHOS, PRL, CBC #### [address] Neutrophils/100 WBC (Bld) 63.5 % Normal . [facility] Comment on above: Performed By: #### M G, CMP, PHOS, PRL, CBC #### [facility] [address] [place] [address] NRBC% 0.0 /100{WBC} Normal 0-0.5 [facility] Comment on above: Performed By: #### M G, CMP, PHOS, PRL, CBC #### [facility] [address] [place] [address] Platelet mean volume (Bld) [Entitic vol] 8.2 fL Normal 6.3-10.7 [facility] Comment on above: Performed By: #### M G, CMP, PHOS, PRL, CBC #### [address] Platelets (Bld) [#/Vol] 366 10*3/uL Normal 150-450 [facility] Comment on above: Performed By: #### M G, CMP, PHOS, PRL, CBC #### [address] RBC (Bld) [#/Vol] 4.87 10*6/uL Normal 3.60-5.00 [facility] Comment on above: Performed By: #### M G, CMP, PHOS, PRL, CBC #### [address] WBC (Bld) [#/Vol] 11.5 10*3/uL Normal 3.8-11.6 [facility] Comment on above: Performed By: #### M G, CMP, PHOS, PRL, CBC #### [address] Comprehensive Metabolic Pane mildred 11-21-2022 Albumin [Mass/Vol] 3.8 g/dL Normal 3.5-5.[address] [facility] Comment on above: Performed By: #### M G, CMP, PHOS, PRL, CBC #### [address] Albumin/Globulin [Mass ratio] 1.2 {ratio} Normal [facility] Comment on above: Performed By: #### M G, CMP, PHOS, PRL, CBC #### [address] ALP [Catalytic activity/Vol] 60 U/L Normal 34-104 [facility] Comment on above: Performed By: #### M G, CMP, PHOS, PRL, CBC #### [address] ALT [Catalytic activity/Vol] 24 U/L Normal 7-52 [facility] Comment on above: Performed By: #### M G, CMP, PHOS, PRL, CBC #### [facility] [address] Anion gap [Moles/Vol] 14.2 mmol/L Normal 6.0-15.0 [facility] Comment on above: Performed By: #### M G, CMP, PHOS, PRL, CBC #### [facility] [address] AST [Catalytic activity/Vol] 21 U/L Normal 13-39 [facility] Comment on above: Performed By: #### M G, CMP, PHOS, PRL, CBC #### [facility] [address] [place] [address] Bilirubin [Mass/Vol] 0.3 mg/dL Normal 0.3-1.0 [facility] Comment on above: Performed By: #### M G, CMP, PHOS, PRL, CBC #### [facility] [address] Calcium [Mass/Vol] 9.3 mg/dL Normal 8.6-10.[address] [facility] Comment on above: Performed By: #### M G, CMP, PHOS, PRL, CBC #### [facility] [address] Chloride [Moles/Vol] 100 mmol/L Normal 98-107 [facility] Comment on above: Performed By: #### M G, CMP, PHOS, PRL, CBC #### [facility] [address] [place] [address] [place] CO2 [Moles/Vol] 28.8 mmol/L Normal 21.0-31.0 [facility] Comment on above: Performed By: #### M G, CMP, PHOS, PRL, CBC #### [facility] [address] Creatinine [Mass/Vol] 0.88 mg/dL Normal 0.60-1.20 [facility] Comment on above: Performed By: #### M G, CMP, PHOS, PRL, CBC #### [facility] [address] Creatinine Clr Calc Pharmacy 100.41 [facility] Comment on above: Performed By: #### M G, CMP, PHOS, PRL, CBC #### [facility] [address] GFR/1.73 sq M.predicted MDRD (S/P/Bld) [Vol rate/Area] mL/min/{1.73_m2} [facility] Comment on above: Performed By: #### M G, CMP, PHOS, PRL, CBC #### [facility] [address] Globulin (S) [Mass/Vol] 3.3 g/dL Normal [facility] Comment on above: Performed By: #### M G, CMP, PHOS, PRL, CBC #### [address] Glucose [Mass/Vol] 81 mg/dL Normal 70-[address] [facility] Comment on above: Result Comment: [facility] Glucose Reference Range is dependent on time and content of last meal. Glucose of more than 200 mg/dL in a nonstressed, ambulatory subject supports the diagnosis of Diabetes Mellitus. ADA recommended reference range Performed By: #### M G, CMP, PHOS, PRL, CBC #### [facility] [address] Potassium [Moles/Vol] 4.0 mmol/L Normal 3.5-5.1 [facility] Comment on above: Performed By: #### M G, CMP, PHOS, PRL, CBC #### [facility] [address] Protein [Mass/Vol] 7.1 g/dL Normal 6.4-8.[address] [facility] Comment on above: Performed By: #### M G, CMP, PHOS, PRL, CBC #### [address] Sodium [Moles/Vol] 139 mmol/L Normal 136-[address] [facility] Comment on above: Performed By: #### M G, CMP, PHOS, PRL, CBC #### [facility] [address] [place] [address] [place] Urea nitrogen [Mass/Vol] 10 mg/dL Normal 7-25 [facility] Comment on above: Performed By: #### M G, CMP, PHOS, PRL, CBC #### [facility] [address] [place] [address] [place] Creatinine [Mass/volume] in Serum or PlasmaOrdered By: Aidan More on 11-21-2022 Creatinine [Mass/Vol] 0.88 mg/dL 0.60-1.20 [facility] ECG 12 lead ECGon 11-21-2022 ECG 12 lead ECG [facility] [place] [address] [place] [address] Electrocardiograph Report Signed Patient: Gerardo Powell MR#: [id number] 9 : 1975 Acct:[id number] Age/Sex: 47 / F ADM Date: 11/21/22 Loc: ER Room: Type: [facility] ER Attending Dr: Ordering Provider: Aidan More DO Date of Service: 11/21/22 ECG/ECG 12 lead ECG: Seizure Copies to: Test Reason : Blood Pressure : 122/079 mmHG Vent. Rate : 088 BPM Atrial Rate : 088 BPM P-R Int : 136 ms QRS Dur : 082 ms QT Int : 350 ms P-R-T Axes : 052 055 055 degrees QTc Int : 423 ms Normal sinus rhythm Confirmed by Aidan More DO ([id number]) on 11/21/2022 6:07:18 AM Referred By: Electronically Signed By:Aidan More DO Transcribed By: MUS Signed By Aidan More DO 0607 Normal [facility] Eosinophils Auto (Bld) [#/Vo l]Ordered By: Aidan More on 11-21-2022 Eosinophils (Bld) [#/Vol] 0.3 10*3/uL 0.0-0.45 [facility] Eosinophils/100 WBC Auto (Bl d)Ordered By: Aidan More on 11-21-2022 Eosinophils/100 WBC (Bld) 2.5 % . [facility] Erythrocyte distribution wid th Auto (RBC) [Ratio]Ordered By: Aidan More on 11-21-2022 Erythrocyte distribution width (RBC) [Ratio] 14.7 % 11.9-15.3 [facility] Globulin Calc (S) [Mass/Vol] Ordered By: Aidan More on 11-21-2022 Globulin (S) [Mass/Vol] 3.3 g/dL [facility] Glucose Glucometer (BldC) [M ass/Vol]Ordered By: Aidan More on 11-21-2022 Glucose [Mass/Vol] 77 mg/dL [facility] Comment on above: Random Glucose Refer ence Range is dependent on time and content of last meal. Glucose of more than 200 mg/dL in a nonstressed, ambulatory subject supports the diagnosis of Diabetes Mellitus. Glucose Poct Glucometerson 0 11-21-2022 Commemt1 Glu2: Cleaned Meter Normal [facility] Comment on above: Result Comment: PERF ORMED BY: [facility] [address] [place] [address] PATHOLOGIST SHAPE BRICK MOLDER MARY LOPEZ M.D. Performed By: #### G LULS ####Point of Care testing, Glucose [Mass/Vol] 77 mg/dL Normal [facility] Comment on above: Result Comment: [place] Glucose Reference Range is dependent on time and content of last meal. Glucose of more than 200 mg/dL in a nonstressed, ambulatory subject supports the diagnosis of Diabetes Mellitus. Performed By: #### G LULS ####Point of Care testing, Glucose [Mass/volume] in Ser um or PlasmaOrdered By: Aidan More on 11-21-2022 Glucose [Mass/Vol] 81 mg/dL 70-[address] [facility] Comment on above: ADA recommended refe rence rangeRandom Glucose Reference Range is dependent on time and content of last meal. Glucose of more than 200 mg/dL in a nonstressed, ambulatory subject supports the diagnosis of Diabetes Mellitus. Hematocrit Auto (Bld) [Volum e fraction]Ordered By: Aidan More on 11-21-2022 Hematocrit (Bld) [Volume fraction] 40.9 % 34.0-46.4 [facility] Hemoglobin [Mass/volume] in BloodOrdered By: Aidan More on 11-21-2022 Hemoglobin (Bld) [Mass/Vol] 13.4 g/dL 11.8-15.4 [facility] Leukocytes [#/volume] correc travis for nucleated erythrocytes in Blood by Automated counOrdered By: Aidan More on 11-21-2022 WBC corrected for nucl RBC Auto (Bld) [#/Vol] 11.5 10*3/uL 3.8-11.6 [facility] Lymphocytes Auto (Bld) [#/Vo l]Ordered By: Aidan More on 11-21-2022 Lymphocytes (Bld) [#/Vol] 2.8 10*3/uL 1.00-4.8 [facility] Lymphocytes/100 WBC Auto (Bl d)Ordered By: Aidan More on 11-21-2022 Lymphocytes/100 WBC (Bld) 24.4 % . [facility] MCH Auto (RBC) [Entitic mass ]Ordered By: Aidan More on 11-21-2022 MCH (RBC) [Entitic mass] 27.5 pg 24.7-34.3 [facility] MCHC Auto (RBC) [Mass/Vol]Or dered By: Aidan More on 11-21-2022 MCHC (RBC) [Mass/Vol] 32.7 g/dL 32.0-35.0 [facility] MCV Auto (RBC) [Entitic vol] Ordered By: Aidan More on 11-21-2022 MCV (RBC) [Entitic vol] 83.9 fL 80-100 [facility] Magnesiumon 11-21-2022 Magnesium [Mass/Vol] 1.7 mg/dL Low 1.9-2.7 [facility] Comment on above: Performed By: #### M G, CMP, PHOS, PRL, CBC #### [facility] [address] [place] [id number] [facility] Magnesium [Mass/volume] in S madelaine or PlasmaOrdered By: Aidan More on 11-21-2022 Magnesium [Mass/Vol] 1.7 mg/dL 1.9-2.7 [facility] Monocyte distribution width [Entitic volume] in Blood by AutomatedOrdered By: Aidan More on 11-21-2022 Monocyte distribution width Auto (Bld) [Entitic vol] 20.09 % 0.00-20.00 [facility] Comment on above: For adults in ED, MD W > 20.0 may be associated with a higher risk of sepsis during the first 12 hrs of hospital admission Monocytes Auto (Bld) [#/Vol] Ordered By: Aidan More on 11-21-2022 Monocytes (Bld) [#/Vol] 1.0 10*3/uL 0.0-0.8 [facility] Monocytes/100 WBC Auto (Bld) Ordered By: Aidan More on 11-21-2022 Monocytes/100 WBC (Bld) 9.0 % . [facility] Neutrophils Auto (Bld) [#/Vo l]Ordered By: Aidan More on 11-21-2022 Neutrophils (Bld) [#/Vol] 7.3 10*3/uL 1.8-7.7 [facility] Neutrophils/100 WBC Auto (Bl d)Ordered By: Aidan More on 11-21-2022 Neutrophils/100 WBC (Bld) 63.5 % . [facility] No Panel InformationOrdered By: Aidan More on 11-21-2022 Estimated GFR (CKD-EPI) > 60.0 mL/Min [facility] Creatinine Clearance (Chem 100.41 [facility] Bedside Glucose Comment Glu2: cleaned meter [facility] Nucleated erythrocytes [Pres ence] in Blood by Automated countOrdered By: Aidan More on 11-21-2022 Nucleated RBC Auto Ql (Bld) 0.0 /100{WBC} 0-0.5 [facility] Phosphate [Mass/volume] in S madelaine or PlasmaOrdered By: Aidan More on 08-16-2023 Phosphate [Mass/Vol] 2.8 mg/dL 3.7-7.2 [facility] Phosphoruson 11-21-2022 Phosphate [Mass/Vol] 2.8 mg/dL Low 3.7-7.2 [facility] Comment on above: Performed By: #### M G, CMP, PHOS, PRL, CBC #### [facility] [address] Platelet mean volume Auto (B ld) [Entitic vol]Ordered By: Aidan More on 11-21-2022 Platelet mean volume (Bld) [Entitic vol] 8.2 fL 6.3-10.7 [facility] Platelets Auto (Bld) [#/Vol] Ordered By: Aidan More on 11-21-2022 Platelets (Bld) [#/Vol] 366 10*3/uL 150-450 [facility] Potassium [Moles/volume] in Serum or PlasmaOrdered By: Aidan More on 11-21-2022 Potassium [Moles/Vol] 4.0 mmol/L 3.5-5.1 [facility] Prolactinon 11-21-2022 Prolactin 14.21 ng/mL Normal 3.34-26.72 [facility] Comment on above: Result Comment: PERF ORMED BY: [place] [address] PATHOLOGIST SHAPE BRICK MOLDER MARY LOPEZ M.D. Performed By: #### M G, CMP, PHOS, PRL, CBC #### [facility] [address] Prolactin [Mass/volume] in S madelaine or PlasmaOrdered By: Aidan More on 11-21-2022 Prolactin [Mass/Vol] 14.21 ng/mL 3.34-26.72 [facility] Protein [Mass/volume] in Ser um or PlasmaOrdered By: Aidan More on 11-21-2022 Protein [Mass/Vol] 7.1 g/dL 6.4-8.[address] [facility] RBC Auto (Bld) [#/Vol]Ordere d By: Aidan More on 11-21-2022 RBC (Bld) [#/Vol] 4.87 10*6/uL 3.60-5.00 [facility] Serum or plasma albumin/glob ulin mass ratioOrdered By: Aidan More on 11-21-2022 Albumin/Globulin [Mass ratio] 1.2 {ratio} [facility] Serum or plasma anion gap de terminationOrdered By: Aidan More on 11-21-2022 Anion gap [Moles/Vol] 14.2 mmol/L 6.0-15.0 [facility] Sodium [Moles/volume] in Ser um or PlasmaOrdered By: Aidan More on 11-21-2022 Sodium [Moles/Vol] 139 mmol/L 136-[address] [facility] Urea nitrogen [Mass/volume] in Serum or PlasmaOrdered By: Aidan More on 11-21-2022 Urea nitrogen [Mass/Vol] 10 mg/dL 7-25 [facility] WBC Auto (Bld) [#/Vol]Ordere d By: Aidan More on 11-21-2022 WBC (Bld) [#/Vol] 11.5 10*3/uL 3.8-11.6 [facility] Automated erythrocytes count in urine sediment (number/area)Ordered By: Camacho Koch on 11-07-2022 RBC Auto (Urine sed) [#/Area] 0-1 [HPF] 0-4 [facility] Automated leukocytes count i n urine sediment (number/area)Ordered By: Camacho Koch on 11-07-2022 WBC Auto (Urine sed) [#/Area] 0-1 [HPF] 0-4 [facility] Basophils Auto (Bld) [#/Vol] Ordered By: Camacho Koch on 11-07-2022 Basophils (Bld) [#/Vol] 0.0 10*3/uL 0.0-0.2 [facility] Basophils/100 WBC Auto (Bld) Ordered By: Camacho Koch on 11-07-2022 Basophils/100 WBC (Bld) 0.6 % . [facility] Bilirubin Test strip Ql (U)O rdered By: Camacho Koch on 11-07-2022 Bilirubin Ql (U) Negative Negative [facility] C reactive protein [Mass/vol ume] in Serum or PlasmaOrdered By: Camacho Koch on 11-07-2022 CRP [Mass/Vol] 1.6 mg/dL 0.0-0.5 [facility] C-Reactive Proteinon 023 C-Reactive Protein 1.6 mg/dL High 0.0-0.[address] [facility] Comment on above: Result Comment: PERF ORMED BY: [facility] [address] [place] [address] PATHOLOGIST SHAPE BRICK MOLDER MARY LOPEZ M.D. Performed By: #### C RP, CBC, ESR, ADDONUAPLUS, CREAT, CK ####[address]#### C4, C3, CH50 ####[facility] , Color Auto (U)Ordered By: Rhoda Koch on 11-07-2022 Color (U) Yellow Yellow [facility] Complement C3on 11-07-2022 Complement C3 173 mg/dL High 82-167 [facility] Comment on above: Result Comment: Perf ormed at: - [facility] [place] [id number] Director Of Cardiac Cath Lab: Chad Chowdhury PhD, Phone: [phone] Performed By: #### C RP, CBC, ESR, ADDONUAPLUS, CREAT, CK ####[address]#### C4, C3, CH50 ####[facility] , Complement C4on 11-07-2022 Complement C4 26 mg/dL Normal 12-38 [facility] Comment on above: Result Comment: PERF ORMED BY: [facility] [address] [place] [address] PATHOLOGIST SHAPE BRICK MOLDER MARY LOPEZ M.D. Performed By: #### C RP, CBC, ESR, ADDONUAPLUS, CREAT, CK ####[address]#### C4, C3, CH50 ####[facility] , Complement Total (CH50)on Complement Total (CH50) >60 Normal >41 [facility] Comment on above: Result Comment: Age Male Female 1 - 30 days Not Estab. Not Estab. 31 days - 6 months >32 >20 7 months - 17 years >39 >39 >17 years >41 >41 NOTE: The adult ( >17 years ) reference interval range is used to flag abnormals on this report. If the patient is 17 years old or younger, use the table above to determine out of range values. Performed at: [facility] [address] [id number] Director Of Cardiac Cath Lab: Chad Chowdhury PhD, Phone: [phone] PERFORMED BY: [facility] [address] [place] [address] PATHOLOGIST SHAPE BRICK MOLDER MARY LOPEZ M.D. Performed By: #### C RP, CBC, ESR, ADDONUAPLUS, CREAT, CK ####[address]#### C4, C3, CH50 ####[facility] , Complete Blood Count Auto Di ffon 11-07-2022 Basophils (Bld) [#/Vol] 0.0 10*3/uL Normal 0.0-0.2 [facility] Comment on above: Performed By: #### C RP, CBC, ESR, ADDONUAPLUS, CREAT, CK ####[address]#### C4, C3, CH50 ####[facility] , Basophils/100 WBC (Bld) 0.6 % Normal . [facility] Comment on above: Performed By: #### C RP, CBC, ESR, ADDONUAPLUS, CREAT, CK ####[facility] [place] [address] [place]#### C4, C3, CH50 ####[facility] , Eosinophils (Bld) [#/Vol] 0.2 10*3/uL Normal 0.0-0.45 [facility] Comment on above: Performed By: #### C RP, CBC, ESR, ADDONUAPLUS, CREAT, CK ####[place] [address] [place]#### C4, C3, CH50 ####[facility] , Eosinophils/100 WBC (Bld) 2.7 % Normal . [facility] Comment on above: Performed By: #### C RP, CBC, ESR, ADDONUAPLUS, CREAT, CK ####[address]#### C4, C3, CH50 ####[facility] , Erythrocyte distribution width (RBC) [Ratio] 14.5 % Normal 11.9-15.3 [facility] Comment on above: Performed By: #### C RP, CBC, ESR, ADDONUAPLUS, CREAT, CK ####[place] [address] [place]#### C4, C3, CH50 ####[facility] , Hematocrit (Bld) [Volume fraction] 40.7 % Normal 34.0-46.4 [facility] Comment on above: Performed By: #### C RP, CBC, ESR, ADDONUAPLUS, CREAT, CK ####[place] [address] [place]#### C4, C3, CH50 ####[facility] , Hemoglobin (Bld) [Mass/Vol] 13.4 g/dL Normal 11.8-15.4 [facility] Comment on above: Performed By: #### C RP, CBC, ESR, ADDONUAPLUS, CREAT, CK ####[place] [address] [place]#### C4, C3, CH50 ####[facility] , Lymphocytes (Bld) [#/Vol] 2.5 10*3/uL Normal 1.00-4.8 [facility] Comment on above: Performed By: #### C RP, CBC, ESR, ADDONUAPLUS, CREAT, CK ####[address]#### C4, C3, CH50 ####[facility] , Lymphocytes/100 WBC (Bld) 32.8 % Normal . [facility] Comment on above: Performed By: #### C RP, CBC, ESR, ADDONUAPLUS, CREAT, CK ####[address]#### C4, C3, CH50 ####[facility] , MCH (RBC) [Entitic mass] 27.8 pg Normal 24.7-34.3 [facility] Comment on above: Performed By: #### C RP, CBC, ESR, ADDONUAPLUS, CREAT, CK ####[address]#### C4, C3, CH50 ####[facility] , MCV (RBC) [Entitic vol] 84.4 fL Normal 80-100 [facility] Comment on above: Performed By: #### C RP, CBC, ESR, ADDONUAPLUS, CREAT, CK ####[place] [address] [place]#### C4, C3, CH50 ####[facility] , Mean Corpuscular HGB Conc 33.0 g/dL Normal 32.0-35.0 [facility] Comment on above: Performed By: #### C RP, CBC, ESR, ADDONUAPLUS, CREAT, CK ####[place] [address] [place]#### C4, C3, CH50 ####[facility] , Monocytes (Bld) [#/Vol] 0.5 10*3/uL Normal 0.0-0.8 [facility] Comment on above: Performed By: #### C RP, CBC, ESR, ADDONUAPLUS, CREAT, CK ####[address]#### C4, C3, CH50 ####[facility] , Monocytes/100 WBC (Bld) 6.7 % Normal . [facility] Comment on above: Performed By: #### C RP, CBC, ESR, ADDONUAPLUS, CREAT, CK ####[place] [address] [place]#### C4, C3, CH50 ####[facility] , Neutrophils (Bld) [#/Vol] 4.3 10*3/uL Normal 1.8-7.7 [facility] Comment on above: Performed By: #### C RP, CBC, ESR, ADDONUAPLUS, CREAT, CK ####[place] [address] [place]#### C4, C3, CH50 ####[facility] , Neutrophils/100 WBC (Bld) 57.2 % Normal . [facility] Comment on above: Performed By: #### C RP, CBC, ESR, ADDONUAPLUS, CREAT, CK ####[place] [address] [place]#### C4, C3, CH50 ####[facility] , NRBC% 0.1 /100{WBC} Normal 0-0.5 [facility] Comment on above: Performed By: #### C RP, CBC, ESR, ADDONUAPLUS, CREAT, CK ####[place] [address] [place]#### C4, C3, CH50 ####[facility] , Platelet mean volume (Bld) [Entitic vol] 8.4 fL Normal 6.3-10.7 [facility] Comment on above: Performed By: #### C RP, CBC, ESR, ADDONUAPLUS, CREAT, CK ####[place] [address] [address]#### C4, C3, CH50 ####[facility] , Platelets (Bld) [#/Vol] 399 10*3/uL Normal 150-450 [facility] Comment on above: Performed By: #### C RP, CBC, ESR, ADDONUAPLUS, CREAT, CK ####[address]#### C4, C3, CH50 ####[facility] , RBC (Bld) [#/Vol] 4.83 10*6/uL Normal 3.60-5.00 [facility] Comment on above: Performed By: #### C RP, CBC, ESR, ADDONUAPLUS, CREAT, CK ####[address]#### C4, C3, CH50 ####[facility] , WBC (Bld) [#/Vol] 7.5 10*3/uL Normal 3.8-11.[address] [facility] Comment on above: Performed By: #### C RP, CBC, ESR, ADDONUAPLUS, CREAT, CK ####[address]#### C4, C3, CH50 ####[facility] , Creatine Kinaseon 11-07-2022 CK [Catalytic activity/Vol] 75 U/L Normal 30-223 [facility] Comment on above: Result Comment: PERF ORMED BY: [facility] [address] [place], [place] [id number] PATHOLOGIST SHAPE BRICK MOLDER MARY LOPEZ M.D. Performed By: #### C RP, CBC, ESR, ADDONUAPLUS, CREAT, CK ####[place] [address] [address]#### C4, C3, CH50 ####[facility] , Creatine kinase [Enzymatic a ctivity/volume] in Serum or PlasmaOrdered By: Camacho Koch on 11-07-2022 CK [Catalytic activity/Vol] 75 U/L 30-223 [facility] Creatinineon 11-07-2022 Creatinine [Mass/Vol] 0.90 mg/dL Normal 0.60-1.20 [facility] Comment on above: Performed By: #### C RP, CBC, ESR, ADDONUAPLUS, CREAT, CK ####[address]#### C4, C3, CH50 ####[facility] , GFR/1.73 sq M.predicted MDRD (S/P/Bld) [Vol rate/Area] mL/min/{1.73_m2} Normal [facility] Comment on above: Performed By: #### C RP, CBC, ESR, ADDONUAPLUS, CREAT, CK ####[address]#### C4, C3, CH50 ####[facility] , Creatinine [Mass/volume] in Serum or PlasmaOrdered By: Camacho Koch on 11-07-2022 Creatinine [Mass/Vol] 0.90 mg/dL 0.60-1.20 [facility] Dipstick and Microscopicon 0 11-07-2022 Appearance (U) Clear Normal Clear [facility] Comment on above: Order Comment: Name Collection Type:: Clean-Voided Midstream Performed By: #### C RP, CBC, ESR, ADDONUAPLUS, CREAT, CK ####[address]#### C4, C3, CH50 ####[facility] , Bacteria,Urine None Seen Normal None Seen [facility] Comment on above: Order Comment: Name Collection Type:: Clean-Voided Midstream Performed By: #### C RP, CBC, ESR, ADDONUAPLUS, CREAT, CK ####[address]#### C4, C3, CH50 ####[facility] , Bilirubin,Urine Negative Normal Negative [facility] Comment on above: Order Comment: Name Collection Type:: Clean-Voided Midstream Performed By: #### C RP, CBC, ESR, ADDONUAPLUS, CREAT, CK ####[address]#### C4, C3, CH50 ####[facility] , Color (U) Yellow Normal Yellow [facility] Comment on above: Order Comment: Name Collection Type:: Clean-Voided Midstream Performed By: #### C RP, CBC, ESR, ADDONUAPLUS, CREAT, CK ####[address]#### C4, C3, CH50 ####[facility] , Glucose Ql (U) Normal Normal Normal [facility] Comment on above: Order Comment: Name Collection Type:: Clean-Voided Midstream Performed By: #### C RP, CBC, ESR, ADDONUAPLUS, CREAT, CK ####[address]#### C4, C3, CH50 ####[facility] , Hyaline Casts,Urine 0-8 Normal 0-8 [facility] Comment on above: Order Comment: Name Collection Type:: Clean-Voided Midstream Result Comment: PERF ORMED BY: [facility] [address] [place] [address] PATHOLOGIST SHAPE BRICK MOLDER MARY LOPEZ M.D. Performed By: #### C RP, CBC, ESR, ADDONUAPLUS, CREAT, CK ####[address] [place] [address] [place]#### C4, C3, CH50 ####[facility] , Ketones Ql (U) Negative Normal Negative [facility] Comment on above: Order Comment: Name Collection Type:: Clean-Voided Midstream Performed By: #### C RP, CBC, ESR, ADDONUAPLUS, CREAT, CK ####[address]#### C4, C3, CH50 ####[facility] , Leukocyte esterase Test strip Ql (U) Negative Normal Negative [facility] Comment on above: Order Comment: Name Collection Type:: Clean-Voided Midstream Performed By: #### C RP, CBC, ESR, ADDONUAPLUS, CREAT, CK ####[address]#### C4, C3, CH50 ####[facility] , Nitrite,Urine Negative Normal Negative [facility] Comment on above: Order Comment: Name Collection Type:: Clean-Voided Midstream Performed By: #### C RP, CBC, ESR, ADDONUAPLUS, CREAT, CK ####[address]#### C4, C3, CH50 ####[facility] , Occult Blood,Urine Negative Normal Negative [facility] Comment on above: Order Comment: Name Collection Type:: Clean-Voided Midstream Performed By: #### C RP, CBC, ESR, ADDONUAPLUS, CREAT, CK ####[address]#### C4, C3, CH50 ####[facility] , pH (U) 5.5 [pH] Normal 5.0-9.0 [facility] Comment on above: Order Comment: Name Collection Type:: Clean-Voided Midstream Performed By: #### C RP, CBC, ESR, ADDONUAPLUS, CREAT, CK ####[address]#### C4, C3, CH50 ####[facility] , Protein,Urine Negative Normal Negative [facility] Comment on above: Order Comment: Name Collection Type:: Clean-Voided Midstream Performed By: #### C RP, CBC, ESR, ADDONUAPLUS, CREAT, CK ####[address]#### C4, C3, CH50 ####[facility] , RBC LM.HPF (Urine sed) [#/Area] 0 /[HPF] Normal 0-4 [facility] Comment on above: Order Comment: Name Collection Type:: Clean-Voided Midstream Performed By: #### C RP, CBC, ESR, ADDONUAPLUS, CREAT, CK ####[address]#### C4, C3, CH50 ####[facility] , Specificy Sterling,Urine 1.024 Normal 1.001-1.030 [facility] Comment on above: Order Comment: Name Collection Type:: Clean-Voided Midstream Performed By: #### C RP, CBC, ESR, ADDONUAPLUS, CREAT, CK ####[address]#### C4, C3, CH50 ####[facility] , Squamous Epithelial Cell,Urine 1-2 Normal 0-2 [facility] Comment on above: Order Comment: Name Collection Type:: Clean-Voided Midstream Performed By: #### C RP, CBC, ESR, ADDONUAPLUS, CREAT, CK ####[address]#### C4, C3, CH50 ####[facility] , Urobilinogen,Urine Normal Normal Normal [facility] Comment on above: Order Comment: Name Collection Type:: Clean-Voided Midstream Performed By: #### C RP, CBC, ESR, ADDONUAPLUS, CREAT, CK ####[place] [address] [address]#### C4, C3, CH50 ####[facility] , WBC LM.HPF (Urine sed) [#/Area] 0 /[HPF] Normal 0-4 [facility] Comment on above: Order Comment: Name Collection Type:: Clean-Voided Midstream Performed By: #### C RP, CBC, ESR, ADDONUAPLUS, CREAT, CK ####[place] [address] [address]#### C4, C3, CH50 ####[facility] , Eosinophils Auto (Bld) [#/Vo l]Ordered By: Camacho Koch on 11-07-2022 Eosinophils (Bld) [#/Vol] 0.2 10*3/uL 0.0-0.45 [facility] Eosinophils/100 WBC Auto (Bl d)Ordered By: Camacho Koch on 11-07-2022 Eosinophils/100 WBC (Bld) 2.7 % . [facility] Erythrocyte Sedimentation Ra regi 11-07-2022 ESR (Bld) [Velocity] 51 mm/h High 0-19 [facility] Comment on above: Result Comment: PERF ORMED BY: [facility] [address] [place] [address] PATHOLOGIST SHAPE BRICK MOLDER MARY LOPEZ M.D. Performed By: #### C RP, CBC, ESR, ADDONUAPLUS, CREAT, CK ####[place] [address] [address]#### C4, C3, CH50 ####[facility] , Erythrocyte distribution wid th Auto (RBC) [Ratio]Ordered By: Camacho Koch on 11-07-2022 Erythrocyte distribution width (RBC) [Ratio] 14.5 % 11.9-15.3 [facility] Erythrocyte sedimentation ra te by Photometric methodOrdered By: Camacho Koch on 11-07-2022 ESR Photometric method (Bld) [Velocity] 51 mm/hr 0-19 [facility] Hematocrit Auto (Bld) [Volum e fraction]Ordered By: Camacho Koch on 11-07-2022 Hematocrit (Bld) [Volume fraction] 40.7 % 34.0-46.4 [facility] Hemoglobin [Mass/volume] in BloodOrdered By: Camacho Koch on 11-07-2022 Hemoglobin (Bld) [Mass/Vol] 13.4 g/dL 11.8-15.4 [facility] Ketones Auto test strip (U) [Mass/Vol]Ordered By: Camacho Koch on 11-07-2022 Ketones (U) [Mass/Vol] Negative Negative Fi [facility] Laboratory - UrinalysisOrder ed By: Camacho Koch on 11-07-2022 Hyaline casts LM Ql (Urine sed) 0-8 [LPF] 0-8 [facility] Leukocytes [#/volume] correc travis for nucleated erythrocytes in Blood by Automated counOrdered By: Camacho Koch on 11-07-2022 WBC corrected for nucl RBC Auto (Bld) [#/Vol] 7.5 10*3/uL 3.8-11.6 [facility] Lymphocytes Auto (Bld) [#/Vo l]Ordered By: Camacho Koch on 11-07-2022 Lymphocytes (Bld) [#/Vol] 2.5 10*3/uL 1.00-4.8 [facility] Lymphocytes/100 WBC Auto (Bl d)Ordered By: Camacho Koch on 11-07-2022 Lymphocytes/100 WBC (Bld) 32.8 % . [facility] MCH Auto (RBC) [Entitic mass ]Ordered By: Camacho Koch on 11-07-2022 MCH (RBC) [Entitic mass] 27.8 pg 24.7-34.3 [facility] MCHC Auto (RBC) [Mass/Vol]Or dered By: Camacho Koch on 11-07-2022 MCHC (RBC) [Mass/Vol] 33.0 g/dL 32.0-35.0 [facility] MCV Auto (RBC) [Entitic vol] Ordered By: Camacho Koch on 11-07-2022 MCV (RBC) [Entitic vol] 84.4 fL 80-100 [facility] Monocytes Auto (Bld) [#/Vol] Ordered By: Camacho Koch on 11-07-2022 Monocytes (Bld) [#/Vol] 0.5 10*3/uL 0.0-0.8 [facility] Monocytes/100 WBC Auto (Bld) Ordered By: Camacho Koch on 11-07-2022 Monocytes/100 WBC (Bld) 6.7 % . [facility] Neutrophils Auto (Bld) [#/Vo l]Ordered By: Camacho Koch on 11-07-2022 Neutrophils (Bld) [#/Vol] 4.3 10*3/uL 1.8-7.7 [facility] Neutrophils/100 WBC Auto (Bl d)Ordered By: Camacho Koch on 11-07-2022 Neutrophils/100 WBC (Bld) 57.2 % . [facility] Nitrite Test strip Ql (U)Ord ered By: Camacho Koch on 11-07-2022 Nitrite Ql (U) Negative Negative [facility] No Panel InformationOrdered By: Camacho Koch on 11-07-2022 Estimated GFR (CKD-EPI) > 60.0 mL/Min [facility] Creatinine Clearance (Chem N/A [facility] Total Complement (CH50) >60 U/mL >41 [facility] Comment on above: Age Male Female 1 - 30 days Not Estab. Not Estab. 31 days - 6 months >32 >20 7 months - 17 years >39 >39 >17 years >41 >41 NOTE: The adult ( >17 years ) reference interval range is used to flag abnormals on this report. If the patient is 17 years old or younger, use the table above to determine out of range values.Performed at: [facility] [id number] Director: Chad Chowdhury PhD, Phone: [phone] Nucleated erythrocytes [Pres ence] in Blood by Automated countOrdered By: Camacho Koch on 11-07-2022 Nucleated RBC Auto Ql (Bld) 0.1 /100{WBC} 0-0.5 [facility] Platelet mean volume Auto (B ld) [Entitic vol]Ordered By: Camacho Koch on 11-07-2022 Platelet mean volume (Bld) [Entitic vol] 8.4 fL 6.3-10.7 [facility] Platelets Auto (Bld) [#/Vol] Ordered By: Camacho Koch on 11-07-2022 Platelets (Bld) [#/Vol] 399 10*3/uL 150-450 [facility] Protein Auto test strip (U) [Mass/Vol]Ordered By: Camacho Koch on 11-07-2022 Protein (U) [Mass/Vol] Negative Negative Fi [facility] RBC Auto (Bld) [#/Vol]Ordere d By: Camacho Koch on 11-07-2022 RBC (Bld) [#/Vol] 4.83 10*6/uL 3.60-5.00 [facility] Serum or plasma complement C 3 measurement (mass/volume)Ordered By: Camacho Koch on 11-07-2022 Complement C3 [Mass/Vol] 173 mg/dL 82-167 [facility] Comment on above: Performed at: [address] Director: Chad Chowdhury PhD, Phone: [phone] Serum or plasma complement C 4 measurement (mass/volume)Ordered By: Camacho Koch on 11-07-2022 Complement C4 [Mass/Vol] 26 mg/dL 12-38 [facility] Specific gravity Auto test s trip (U) [Rel density]Ordered By: Camacho Koch on 11-07-2022 Specific gravity (U) [Rel density] 1.024 1.001-1.030 [facility] Squamous epithelial cells de tection in urine sediment by light microscopyOrdered By: Camacho Koch on 11-07-2022 Epithelial cells.squamous LM Ql (Urine sed) 1-2 [HPF] 0-2 [facility] Urine bacteria detection by automated methodOrdered By: Camacho Koch on 11-07-2022 Bacteria Auto Ql (U) None seen None Seen [facility] Urine clarity by refractomet ry automatedOrdered By: Camacho Koch on 11-07-2022 Clarity Refractometry automated (U) Clear Clear [facility] Urine glucose measurement by automated test strip (mass/volume)Ordered By: Camacho Koch on 11-07-2022 Glucose Auto test strip (U) [Mass/Vol] Normal mg/dL Normal [facility] Urine hemoglobin detection b y automated test stripOrdered By: Camacho Koch on 11-07-2022 Hemoglobin Auto test strip Ql (U) Negative Negative [facility] Urine leukocyte esterase det ection by automated test stripOrdered By: Camacho Koch on 11-07-2022 Leukocyte esterase Auto test strip Ql (U) Negative Negative [facility] Urobilinogen Auto test strip (U) [Mass/Vol]Ordered By: Camacho Koch on 11-07-2022 Urobilinogen (U) [Mass/Vol] Normal mg/dL Normal [facility] WBC Auto (Bld) [#/Vol]Ordere d By: Camacho Koch on 11-07-2022 WBC (Bld) [#/Vol] 7.5 10*3/uL 3.8-11.[address] [facility] pH Auto test strip (U)Ordere d By: Camacho Koch on 11-07-2022 pH (U) 5.5 [pH] 5.0-9.0 [facility] ANN-MARIE Antinuclear Antibodieson 10-15-2022 Antinuclear Abs, IFA Positive Critically abnormal . [facility] Comment on above: Result Comment: Nega tive <1:80 Borderline 1:80 Positive >1:80 Performed By: #### A NA ####[facility] ,#### ESR, BMP, CRP, CBC ####[facility] [id number] Homogeneous Pattern 1:160 High . [facility] Comment on above: Result Comment: ICAP nomenclature: AC-1 Performed By: #### A NA ####[facility] ,#### ESR, BMP, CRP, CBC ####[facility] [id number] [place] [id number] [facility] Note 1 Normal . [facility] Comment on above: Result Comment: For more information about Hep-2 cell patterns use ANApatterns.org, the official website for the International Consensus on Antinuclear Antibody (ANN-MARIE) Patterns (ICAP). A positive ANN-MARIE result may occur in healthy individuals (low titer) or be associated with a variety of diseases. See interpretation chart which is not all inclusive: Pattern Antigen Detected Suggested Disease Association Homogeneous DNA(ds,ss), SLE - High titers Nucleosomes, Histones Drug-induced SLE Speckled Sm, ENGAGEMENT SPECIALIST, SCL-70, SLE,MCTD,PSS (diffuse form), SS-A/SS-B Sjogrens Nucleolar SCL-70, PM-1/SCL High titers Scleroderma, PM/DM Centromere Centromere PSS (limited form) w/Crest syndrome variable Nuclear Dot [id number] Primary Biliary Cirrhosis Nuclear GP210, Primary Biliary Cirrhosis Membrane patricia A,B,C Performed at: [facility] [address] [id number] Director Of Cardiac Cath Lab: Chad Chowdhury PhD, Phone: [phone] PERFORMED BY: [address] [place] [address] PATHOLOGIST SHAPE BRICK MOLDER MARY LOPEZ M.D. Performed By: #### A NA ####[facility] ,#### ESR, BMP, CRP, CBC ####[place] [address] [place] [id number] [facility] Basic Metabolic Panelon 07-1 Anion gap [Moles/Vol] 10.6 mmol/L Normal 6.0-15.0 [facility] Comment on above: Performed By: #### A NA ####[facility] ,#### ESR, BMP, CRP, CBC ####[facility] [place] [address] [facility] Calcium [Mass/Vol] 9.8 mg/dL Normal 8.6-10.[address] [facility] Comment on above: Performed By: #### A NA ####[facility] ,#### ESR, BMP, CRP, CBC ####[facility] [place] [address] [facility] Chloride [Moles/Vol] 101 mmol/L Normal 98-107 [facility] Comment on above: Performed By: #### A NA ####[facility] ,#### ESR, BMP, CRP, CBC ####[place] [id number] [facility] CO2 [Moles/Vol] 28.8 mmol/L Normal 21.0-31.0 [facility] Comment on above: Performed By: #### A NA ####[facility] ,#### ESR, BMP, CRP, CBC ####[address] Creatinine [Mass/Vol] 0.88 mg/dL Normal 0.60-1.20 [facility] Comment on above: Performed By: #### A NA ####[facility] ,#### ESR, BMP, CRP, CBC ####[address] GFR/1.73 sq M.predicted MDRD (S/P/Bld) [Vol rate/Area] mL/min/{1.73_m2} Normal [facility] Comment on above: Performed By: #### A NA ####[facility] ,#### ESR, BMP, CRP, CBC ####[place] [id number] [facility] Glucose [Mass/Vol] 78 mg/dL Normal 70-[address] [facility] Comment on above: Result Comment: [place] Glucose Reference Range is dependent on time and content of last meal. Glucose of more than 200 mg/dL in a nonstressed, ambulatory subject supports the diagnosis of Diabetes Mellitus. ADA recommended reference range Performed By: #### A NA ####[facility] ,#### ESR, BMP, CRP, CBC ####[place] [id number] [facility] Potassium [Moles/Vol] 4.4 mmol/L Normal 3.5-5.1 [facility] Comment on above: Performed By: #### A NA ####[facility] ,#### ESR, BMP, CRP, CBC ####[address] Sodium [Moles/Vol] 136 mmol/L Normal 136-[address] [facility] Comment on above: Performed By: #### A NA ####[facility] ,#### ESR, BMP, CRP, CBC ####[address] Urea nitrogen [Mass/Vol] 15 mg/dL Normal 7-25 [facility] Comment on above: Performed By: #### A NA ####[facility] ,#### ESR, BMP, CRP, CBC ####[address] Basophils Auto (Bld) [#/Vol] Ordered By: Ele Blades on 10-15-2022 Basophils (Bld) [#/Vol] 0.0 10*3/uL 0.0-0.2 [facility] Basophils/100 WBC Auto (Bld) Ordered By: Ele Blades on 10-15-2022 Basophils/100 WBC (Bld) 0.4 % . [facility] C reactive protein [Mass/vol ume] in Serum or PlasmaOrdered By: Ele Blades on 10-15-2022 CRP [Mass/Vol] 2.2 mg/dL 0.0-0.5 [facility] C-Reactive Proteinon 023 C-Reactive Protein 2.2 mg/dL High 0.0-0.[address] [facility] Comment on above: Result Comment: PERF ORMED BY: [facility] [address] [place] [address] PATHOLOGIST SHAPE BRICK MOLDER MARY LOPEZ M.D. Performed By: #### A NA ####[facility] ,#### ESR, BMP, CRP, CBC ####[address] Calcium [Mass/volume] in Ser um or PlasmaOrdered By: Ele Blades on 10-15-2022 Calcium [Mass/Vol] 9.8 mg/dL 8.6-10.[address] [facility] Carbon dioxide, total [Moles /volume] in Serum or PlasmaOrdered By: Ele Blades on 10-15-2022 CO2 [Moles/Vol] 28.8 mmol/L 21.0-31.0 [facility] Chloride [Moles/volume] in S madelaine or PlasmaOrdered By: Ele Blades on 10-15-2022 Chloride [Moles/Vol] 101 mmol/L 98-107 [facility] Complete Blood Count Auto Di ffon 10-15-2022 Basophils (Bld) [#/Vol] 0.0 10*3/uL Normal 0.0-0.2 [facility] Comment on above: Performed By: #### A NA ####[facility] ,#### ESR, BMP, CRP, CBC ####[facility] [id number] [place] [address] [place] Basophils/100 WBC (Bld) 0.4 % Normal . [facility] Comment on above: Performed By: #### A NA ####[facility] ,#### ESR, BMP, CRP, CBC ####[place] [address] [place] Eosinophils (Bld) [#/Vol] 0.2 10*3/uL Normal 0.0-0.45 [facility] Comment on above: Performed By: #### A NA ####[facility] ,#### ESR, BMP, CRP, CBC ####[facility] [id number] [place] [address] [place] Eosinophils/100 WBC (Bld) 2.1 % Normal . [facility] Comment on above: Performed By: #### A NA ####[facility] ,#### ESR, BMP, CRP, CBC ####[address] Erythrocyte distribution width (RBC) [Ratio] 14.5 % Normal 11.9-15.3 [facility] Comment on above: Performed By: #### A NA ####[facility] ,#### ESR, BMP, CRP, CBC ####[address] Hematocrit (Bld) [Volume fraction] 39.8 % Normal 34.0-46.4 [facility] Comment on above: Performed By: #### A NA ####[facility] ,#### ESR, BMP, CRP, CBC ####[address] Hemoglobin (Bld) [Mass/Vol] 13.1 g/dL Normal 11.8-15.4 [facility] Comment on above: Performed By: #### A NA ####[facility] ,#### ESR, BMP, CRP, CBC ####[address] Lymphocytes (Bld) [#/Vol] 2.4 10*3/uL Normal 1.00-4.8 [facility] Comment on above: Performed By: #### A NA ####[facility] ,#### ESR, BMP, CRP, CBC ####[address] Lymphocytes/100 WBC (Bld) 22.5 % Normal . [facility] Comment on above: Performed By: #### A NA ####[facility] ,#### ESR, BMP, CRP, CBC ####[address] MCH (RBC) [Entitic mass] 28.0 pg Normal 24.7-34.3 [facility] Comment on above: Performed By: #### A NA ####[facility] ,#### ESR, BMP, CRP, CBC ####[address] MCV (RBC) [Entitic vol] 85.2 fL Normal 80-100 [facility] Comment on above: Performed By: #### A NA ####[facility] ,#### ESR, BMP, CRP, CBC ####[address] Mean Corpuscular HGB Conc 32.8 g/dL Normal 32.0-35.0 [facility] Comment on above: Performed By: #### A NA ####[facility] ,#### ESR, BMP, CRP, CBC ####[address] Monocytes (Bld) [#/Vol] 0.8 10*3/uL Normal 0.0-0.8 [facility] Comment on above: Performed By: #### A NA ####[facility] ,#### ESR, BMP, CRP, CBC ####[address] Monocytes/100 WBC (Bld) 7.2 % Normal . [facility] Comment on above: Performed By: #### A NA ####[facility] ,#### ESR, BMP, CRP, CBC ####[address] Neutrophils (Bld) [#/Vol] 7.2 10*3/uL Normal 1.8-7.7 [facility] Comment on above: Performed By: #### A NA ####[facility] ,#### ESR, BMP, CRP, CBC ####[address] Neutrophils/100 WBC (Bld) 67.8 % Normal . [facility] Comment on above: Performed By: #### A NA ####[facility] ,#### ESR, BMP, CRP, CBC ####[address] NRBC% 0.1 /100{WBC} Normal 0-0.5 [facility] Comment on above: Performed By: #### A NA ####[facility] ,#### ESR, BMP, CRP, CBC ####[address] Platelet mean volume (Bld) [Entitic vol] 8.8 fL Normal 6.3-10.7 [facility] Comment on above: Performed By: #### A NA ####[facility] ,#### ESR, BMP, CRP, CBC ####[address] Platelets (Bld) [#/Vol] 371 10*3/uL Normal 150-450 [facility] Comment on above: Performed By: #### A NA ####[facility] ,#### ESR, BMP, CRP, CBC ####[address] RBC (Bld) [#/Vol] 4.67 10*6/uL Normal 3.60-5.00 [facility] Comment on above: Performed By: #### A NA ####[facility] ,#### ESR, BMP, CRP, CBC ####[address] WBC (Bld) [#/Vol] 10.6 10*3/uL Normal 3.8-11.6 [facility] Comment on above: Performed By: #### A NA ####[facility] ,#### ESR, BMP, CRP, CBC ####[address] Creatinine [Mass/volume] in Serum or PlasmaOrdered By: Ele Dubose on 10-15-2022 Creatinine [Mass/Vol] 0.88 mg/dL 0.60-1.20 [facility] Eosinophils Auto (Bld) [#/Vo l]Ordered By: Ele Blades on 10-15-2022 Eosinophils (Bld) [#/Vol] 0.2 10*3/uL 0.0-0.45 [facility] Eosinophils/100 WBC Auto (Bl d)Ordered By: Ele Blades on 10-15-2022 Eosinophils/100 WBC (Bld) 2.1 % . [facility] Erythrocyte Sedimentation Ra regi 10-15-2022 ESR (Bld) [Velocity] 45 mm/h High [facility] Comment on above: Result Comment: PERF ORMED BY: [facility] [address] [place] [address] PATHOLOGIST SHAPE BRICK MOLDER MARY LOPEZ M.D. Performed By: #### A NA ####[facility] ,#### ESR, BMP, CRP, CBC ####[facility] [id number] Erythrocyte distribution wid th Auto (RBC) [Ratio]Ordered By: Ele Dubose on 10-15-2022 Erythrocyte distribution width (RBC) [Ratio] 14.5 % 11.9-15.3 [facility] Erythrocyte sedimentation ra te by Photometric methodOrdered By: Ele Dubose on 10-15-2022 ESR Photometric method (Bld) [Velocity] 45 mm/hr [facility] Glucose [Mass/volume] in Ser um or PlasmaOrdered By: Ele Dubose on 10-15-2022 Glucose [Mass/Vol] 78 mg/dL 70-[address] [facility] Comment on above: ADA recommended refe rence rangeRandom Glucose Reference Range is dependent on time and content of last meal. Glucose of more than 200 mg/dL in a nonstressed, ambulatory subject supports the diagnosis of Diabetes Mellitus. Hematocrit Auto (Bld) [Volum e fraction]Ordered By: Ele Dubose on 10-15-2022 Hematocrit (Bld) [Volume fraction] 39.8 % 34.0-46.4 [facility] Hemoglobin [Mass/volume] in BloodOrdered By: Ele Blades on 10-15-2022 Hemoglobin (Bld) [Mass/Vol] 13.1 g/dL 11.8-15.4 [facility] Leukocytes [#/volume] correc travis for nucleated erythrocytes in Blood by Automated counOrdered By: Ele Blades on 10-15-2022 WBC corrected for nucl RBC Auto (Bld) [#/Vol] 10.6 10*3/uL 3.8-11.6 [facility] Lymphocytes Auto (Bld) [#/Vo l]Ordered By: Ele Blades on 10-15-2022 Lymphocytes (Bld) [#/Vol] 2.4 10*3/uL 1.00-4.8 [facility] Lymphocytes/100 WBC Auto (Bl d)Ordered By: Ele Blades on 10-15-2022 Lymphocytes/100 WBC (Bld) 22.5 % . [facility] MCH Auto (RBC) [Entitic mass ]Ordered By: Ele Blades on 10-15-2022 MCH (RBC) [Entitic mass] 28.0 pg 24.7-34.3 [facility] MCHC Auto (RBC) [Mass/Vol]Or dered By: Ele Blades on 10-15-2022 MCHC (RBC) [Mass/Vol] 32.8 g/dL 32.0-35.0 [facility] MCV Auto (RBC) [Entitic vol] Ordered By: Ele Blades on 10-15-2022 MCV (RBC) [Entitic vol] 85.2 fL 80-100 [facility] Monocytes Auto (Bld) [#/Vol] Ordered By: Ele Blades on 10-15-2022 Monocytes (Bld) [#/Vol] 0.8 10*3/uL 0.0-0.8 [facility] Monocytes/100 WBC Auto (Bld) Ordered By: Ele Blades on 10-15-2022 Monocytes/100 WBC (Bld) 7.2 % . [facility] Neutrophils Auto (Bld) [#/Vo l]Ordered By: Elejohnna Dubose on 10-15-2022 Neutrophils (Bld) [#/Vol] 7.2 10*3/uL 1.8-7.7 [facility] Neutrophils/100 WBC Auto (Bl d)Ordered By: Ele Blades on 10-15-2022 Neutrophils/100 WBC (Bld) 67.8 % . [facility] No Panel InformationOrdered By: Ele Dubose on 10-15-2022 Anti-Nuclear Antibody Comment 2 See comment . [facility] Comment on above: For more information about Hep-2 cell patterns useABSerGlooko.Zenitum, the official website for the InternationalCon99designss on Antinuclear Antibody (ANN-MARIE) Patterns (ICAP). -----A positive ANN-MARIE result may occur in healthy individuals (lowtiter) or be associated with a variety of diseases. Seeinterpretation chart which is not all inclusive:Pattern Antigen Detected Suggested Disease Association Homogeneous DNA(ds,ss), SLE - High titers Nucleosomes, Histones Drug-induced SLE Speckled Sm, ENGAGEMENT SPECIALIST, SCL-70, SLE,MCTD,PSS (diffuse form), SS-A/SS-B Sjogrens Nucleolar SCL-70, PM-1/SCL High titers Scleroderma, PM/DM Centromere Centromere PSS (limited form) w/Crest syndrome variable Nuclear Dot Sp100,[id number] Primary Biliary Cirrhosis Nuclear GP210, Primary Biliary CirrhosisMembrane patricia A,B,C Performed at: [facility] [address] [id number] Director: Chad Chowdhury PhD, Phone: [phone] Estimated GFR (CKD-EPI) > 60.0 mL/Min [facility] Creatinine Clearance (Chem N/A [facility] Nucleated erythrocytes [Pres ence] in Blood by Automated countOrdered By: Ele Blades on 10-15-2022 Nucleated RBC Auto Ql (Bld) 0.1 /100{WBC} 0-0.5 [facility] Platelet mean volume Auto (B ld) [Entitic vol]Ordered By: Ele Blades on 10-15-2022 Platelet mean volume (Bld) [Entitic vol] 8.8 fL 6.3-10.7 [facility] Platelets Auto (Bld) [#/Vol] Ordered By: Ele Blades on 10-15-2022 Platelets (Bld) [#/Vol] 371 10*3/uL 150-450 [facility] Potassium [Moles/volume] in Serum or PlasmaOrdered By: Ele Blades on 10-15-2022 Potassium [Moles/Vol] 4.4 mmol/L 3.5-5.1 [facility] RBC Auto (Bld) [#/Vol]Ordere d By: Ele Blades on 10-15-2022 RBC (Bld) [#/Vol] 4.67 10*6/uL 3.60-5.00 [facility] Serum homogeneous pattern an tinuclear antibody (ANN-MARIE) titerOrdered By: Ele Blades on 10-15-2022 Homogenous nuclear Ab pattern (S) [Titer] 1:160 . [facility] Comment on above: ICAP nomenclature: A C-1 Serum nuclear antibody titer Ordered By: Ele Pérezs on 10-15-2022 Nuclear Ab (S) [Titer] Positive . [facility] Comment on above: Negative <1:80 Borde rline 1:80 Positive >1:80 Serum or plasma anion gap de terminationOrdered By: Ele Blades on 10-15-2022 Anion gap [Moles/Vol] 10.6 mmol/L 6.0-15.0 [facility] Sodium [Moles/volume] in Ser um or PlasmaOrdered By: Ele Blades on 10-15-2022 Sodium [Moles/Vol] 136 mmol/L 136-[address] [facility] Urea nitrogen [Mass/volume] in Serum or PlasmaOrdered By: Ele Blades on 10-15-2022 Urea nitrogen [Mass/Vol] 15 mg/dL 10-30 [facility] WBC Auto (Bld) [#/Vol]Ordere d By: Ele Blades on 10-15-2022 WBC (Bld) [#/Vol] 10.6 10*3/uL 3.8-11.6 [facility] MR cervical spine wo conon 0 08-01-2022 MR cervical spine wo con [place] [address] MRI Report Signed Patient: Gerardo Powell MR#: [id number] 9 : 1975 Acct:[id number] Age/Sex: 47 / F ADM Date: 07/31/22 Loc: MR [facility]: [facility] Att[facility]: Charlene Soriano DO Copies to: Charlene Soriano DO Ordering Provider: Charlene Soriano DO Date of Service: 07/31/22 MR/MR cervical spine wo con: RADICULOPATHY MR cervical spine wo con 07/31/2022 7:43 PM SIGNS AND SYMPTOMS: Unable to turn neck PROTOCOL: Multiplanar multisequence MR images of the cervical spine were obtained with and without IV contrast COMPARISON: 07/11/2022 FINDINGS: There is straightening of the normal cervical lordosis. The bones are in anatomic alignment otherwise.. There is preservation of vertebral body heights. There is disc desiccation and mild disc height loss at C5-C6, C6-C7, and C7-T1. There is mild Modic type I endplate edema at C5- C6. The cord is normal in signal. No epidural or paraspinous fluid collection is appreciated. The visualized paraspinous soft tissues are within normal limits. The prevertebral soft tissues are within normal limits. At C2-C3: There is left-sided facet hypertrophy with mild left-sided neural foraminal stenosis. No significant spinal canal narrowing. At C3-C4: Facet and uncovertebral joint degenerative changes contribute to mild bilateral neural foraminal narrowing with no significant spinal canal narrowing. At C4-C5: There is a broad-based disc bulge with facet degenerative change contributing to moderate spinal canal stenosis with mild to moderate bilateral neural foraminal narrowing. At C5-C6: There is a broad-based disc bulge with facet and uncovertebral joint degenerative change contributing to moderate bilateral neural foraminal narrowing with mild spinal canal narrowing. At C6-C7: There is a broad-based disc bulge with facet and uncovertebral joint degenerative change. There is mild left neural foraminal narrowing with moderate spinal canal narrowing. At C7-T1: There is a normal disc, central canal, and neural foramen. MR/MR cervical spine wo con IMPRESSION: No evidence of cord compression or cord signal abnormality. At C4-C5: There is a broad-based disc bulge with facet degenerative change contributing to moderate spinal canal stenosis with mild to moderate bilateral neural foraminal narrowing. At C5-C6: There is a broad-based disc bulge with facet and uncovertebral joint degenerative change contributing to moderate bilateral neural foraminal narrowing with mild spinal canal narrowing. At C6-C7: There is a broad-based disc bulge with facet and uncovertebral joint degenerative change. There is mild left neural foraminal narrowing with moderate spinal canal narrowing. Impression dictated by: Pool Frazier M.D.08/01/2022 1:26 PM Dictation Location: [facility]-- Transcribed By: KEMAR 08/01/22 1326 Dictated By: Pool Frazier II, MD 08/01/22 1313 Signed By: 08/01/22 1326 [facility] MR head/brain wo/w conon MR head/brain wo/w con [facility] [place] [address] MRI Report Signed Patient: Gerardo Powell MR#: [id number] 9 : 1975 Acct:[id number] Age/Sex: 47 / F ADM Date: 07/31/22 Loc: MR Room: Type: [facility] Attending Dr: Americo Cadet MD Copies to: Americo Cadet MD Ordering Provider: Americo Cadet MD Date of Service: 07/31/22 MR/MR head/brain wo/w con: R20.0, R20.2 MR head/brain wo/w con 07/31/2022 7:44 PM SIGN AND SYMPTOMS: Left-sided facial droop, history of Figueroa's palsy PROTOCOL: Multiplanar multisequence MR images of the brain were obtained with and without IV contrast CONTRAST: 20 mL of intravenous ProHance COMPARISON: None. FINDINGS: Extra axial spaces: Age appropriate. Hemorrhage: None. Ventricular system: Within normal limits. Basal cisterns: Within normal limits and not effaced. Cerebral parenchyma: Periventricular and subcortical white matter T2 and T2 FLAIR hyperintense foci are noted consistent with mild chronic microvascular ischemic change. Midline shift: None.. Cerebellum: Within normal limits. Brainstem: T2 and T2 FLAIR hyperintense foci are noted in the pontine white matter. Cerebellopontine angles: No mass or abnormal enhancement. Internal auditory canals: No mass or abnormal enhancement. Temporal bone structures: No mass or abnormal enhancement. OTHER: Calvarium: Normal marrow signal. Vascular system: Satisfactory flow voids within the anterior and posterior circulation. Visualized Paranasal sinuses: Within normal limits. Visualized Orbits: Within normal limits. Visualized upper cervical spine: Within normal limits. Sella and skull base: Within normal limits. MR/MR head/brain wo/w con IMPRESSION: The cerebellopontine angles, internal auditory canals, and temporal bone structures are within normal limits. There is no mass or abnormal enhancement. Chronic microvascular ischemic changes are noted in the periventricular white matter and pontine white matter. No acute intracranial pathology. Impression dictated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 Comment: Speci men Type: BLOOD SPECIMENOrdering Facility: [facility] Address: [address] [place] [address] Performed By: #### 5 7021-8 ####[facility]CL[facility] [id number] [address] [place] CNOVon 05-08-2022 CNOV Office Visit (NE50MN ) -------- GERARDO POWELL ([id number]) 1975 F Date Time Provider Department 05/08/22 3:00 PM DIVINA GRIFFIN NE50MN During your visit today, we recorded the following information about you: Divina Griffin PA-C 05/08/2022 6:21 PM Signed [facility] Patient Name: Gerardo ZARAGOZA Date of : 1975 Referring Provider: Fish Caldwell [address] [address] INITIAL EPILEPSY CLINIC NOTE 05/08/2022 3:00 PM CHIEF COMPLAINT: New Patient HISTORY OF PRESENT ILLNESS Ms. Powell is a 47 year old right-handed female seen in [facility] for initial consultation. At today's visit, the patient is accompanied by: her Handedness: right-handed Age of onset: Seizure History and Evolution Gerardo Powell is a 47 year old right handed female referred by Dr. 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 She reports episodes of concern began about two years ago around the time of her hip replacement. witnessed episode and though patient was having a stroke. Reports she tossed her head back, her arms were extended straight in front of her body, she had whole body stifness and shaking with eyes rolled back and retained awareness with inability to respond lasting a few minutes (longest episode 4 minutes). For the remained of they day she will go in and out of the episode. Previously episodes were occurring daily but since starting LTG have only been happening a few times per month with last episode 2 weeks ago. Recently they have noticed that she will have a staring spell lasting for a few minutes prior to the episode during which she will be unresponsive, no automatisms noted. She also notes staring spells independent of episodes occurring multiple times per day. She also reports left sided facial drooping. Unsure onset but feels it has been getting worse recently and will worsen prior to an episode. Currently reports facial drooping is almost constant. She has a history of Figueroa's palsy two times in the past (20 years ago and 2 years ago). Additionally reports difficulty with short term memory, increased ticks (particularly extension of right arm), frequent and intense headaches and numbness and tingling of bilateral arms she attributes to a pinched nerve. She reports following previously with multiple neurologists and has had 4 prior inpatient EMU evaluations, only one available in record. Most recent has inpatient EMU evaluation at [facility] in November 2021 which captured a typical event without EEG correlate. Patient feels she has not been given answers with any previously studies but believes she has been told she had both PNES and epileptic seizures, unable to remember any reported abnormalities on previous EEG. She is currently taking LTG 25mg daily which has improved episode frequency but has not had an effect on mood. Total # of Current Anti-seizure Medications: Side Effects to Current Anti-seizure Medications: Seizure Frequency at First Visit: Longest Seizure-free Interval: Number of seizure types: 2 Hx of generalized tonic-clonic seizures: Yes Tongue bite: No Urine or Bowel Incontinence: No Status Epilepticus or clusters: No Seizure-related driving accidents: No Driving: No Lives Alone: No ED Visits in Last 3 Months: No Hospitalizations in Last 3 Months: No CURRENT OUTPATIENT ANTISEIZURE MEDICATIONS (as of the start of the encounter) lamoTRIgine (LAMICTAL) 25 mg tablet (Taking) Prior Anti-seizure Therapies: Trial Adequacy: Max Daily Dose Achieved: Side Effects: Effectiveness: Comments: Lamotrigine Levetiracetam Comorbidities: Minor: Anxiety Episode Description: 1: Type: Big Episodes Onset: September 2019 Description: Tosses her head back, her arms were extended straight in front of her body, she had whole body stifness and shaking with eyes rolled back and retained awareness with inability to respond Duration: less than 5 minutes Triggers: None Frequency: A few times per month Last episode: 2 weeks ago 2: Type: Staring Spells Onset: Around 2020 Aura: None Description: Stares off into space and unresponsive Duration: 2-3 minutes Postictal: None Triggers: None Frequency: multiple times per day Patient Entered Data: EPILEPSY SCORE No Data PHQ-9 SCORE - ANABELLE 2 SCORE - ANABELLE 7 SCORE - QOLIE-10 SCORE (0=worst; 100=best QoL - higher scores represent better function) - LSSS SCORE (0- no seizures 100- most severe possible seizures) - C-SSRS SCREEN - On average, how many hours of sleep do you get in a (more content not included)... Normal [facility] Comprehensive metabolic 2000 panelon 05-08-2022 Albumin [Mass/Vol] 4.2 g/dL Normal 3.9-4.9 [facility] Comment on above: Order Comment: Meri pa Type: BLOOD SPECIMENOrdering Facility: [facility] Address: [address] [place] [address] Performed By: #### 2 777-1, 3053-6, 3051-0, 69532-3, 3024-7, 3016-3, 3026-2, 53018-2 ####[facility] [id number] [place] [address] [place] ALP [Catalytic activity/Vol] 65 U/L Normal 34-123 [facility] Comment on above: Order Comment: Meri pa Type: BLOOD SPECIMENOrdering Facility: [facility] Address: [address] [id number] Performed By: #### 2 777-1, 3053-6, 3051-0, 48307-7, 3024-7, 3016-3, 3026-2, 21731-1 ####[facility] [id number] [address] [id number] [place] ALT [Catalytic activity/Vol] 20 U/L Normal 7-38 [facility] Comment on above: Order Comment: Speci men Type: BLOOD SPECIMENOrdering Facility: [facility] Address: [address] [address] Performed By: #### 2 777-1, 3053-6, 3051-0, 15740-8, 3024-7, 3016-3, 3026-2, 26737-1 ####[facility]CL[facility] [id number] [place] [address] [place] Anion gap [Moles/Vol] 12 mmol/L Normal 9-18 [facility] Comment on above: Order Comment: Speci men Type: BLOOD SPECIMENOrdering Facility: [facility] Address: [address] [place] [address] Performed By: #### 2 777-1, 3053-6, 3051-0, 15116-7, 3024-7, 3016-3, 3026-2, 89929-2 ####[facility] [id number] [place] [id number] [place] AST [Catalytic activity/Vol] 14 U/L Normal 13-35 [facility] Comment on above: Order Comment: Speci men Type: BLOOD SPECIMENOrdering Facility: [facility] Address: [address] [place] [address] Performed By: #### 2 777-1, 3053-6, 3051-0, 51770-4, 3024-7, 3016-3, 3026-2, 85076-9 ####[facility]CL[facility] [id number] [place] [address] [place] Bilirubin [Mass/Vol] 0.3 mg/dL Normal 0.2-1.3 [facility] Comment on above: Order Comment: Speci men Type: BLOOD SPECIMENOrdering Facility: [facility] Address: [address] [place] [address] Performed By: #### 2 777-1, 3053-6, 3051-0, 16516-7, 3024-7, 3016-3, 3026-2, 76195-2 ####[facility]CL[facility] [id number] [place] [address] [place] Calcium [Mass/Vol] 9.6 mg/dL Normal 8.5-10.2 [facility] Comment on above: Order Comment: Speci men Type: BLOOD SPECIMENOrdering Facility: [facility] Address: [address] [place] [address] Performed By: #### 2 777-1, 3053-6, 3051-0, 30269-4, 3024-7, 3016-3, 3026-2, 51693-1 ####[facility]CL[facility] [id number] [place] [address] [place] Chloride [Moles/Vol] 102 mmol/L Normal 97-105 [facility] Comment on above: Order Comment: Speci men Type: BLOOD SPECIMENOrdering Facility: [facility] Address: [address] [place], [place] [address] Performed By: #### 2 777-1, 3053-6, 3051-0, 21208-2, 3024-7, 3016-3, 3026-2, 62149-2 ####[facility]CL[facility] [id number] [place] [address] [place] CO2 [Moles/Vol] 25 mmol/L Normal 22-30 [facility] Comment on above: Order Comment: Speci men Type: BLOOD SPECIMENOrdering Facility: [facility] Address: [address] [place], [place] [address] Performed By: #### 2 777-1, 3053-6, 3051-0, 37658-3, 3024-7, 3016-3, 3026-2, 42830-8 ####[facility]CL[facility] [id number] [place] [address] [place] Creatinine [Mass/Vol] 1.12 mg/dL High 0.58-0.96 [facility] Comment on above: Order Comment: Speci men Type: BLOOD SPECIMENOrdering Facility: [facility] Address: [address] [place] [address] Performed By: #### 2 777-1, 3053-6, 3051-0, 86239-1, 3024-7, 3016-3, 3026-2, ####[facility]CL[facility] [id number] [address] STATES OF [facility] ESTIMATED GLOMERULAR FILTRATION RATE 61 mL/min/1.73m??? Normal >=60 [facility] Comment on above: Order Comment: Speci thierno Type: BLOOD SPECIMENOrdering Facility: [facility] Address: [address] [place] [address] Result Comment: Meghan mated Glomerular Filtration Rate (eGFR) is calculated using the 2020 CKD-EPI creatinine equation. This equation utilizes serum creatinine, sex, and age as parameters. The creatinine assay has traceable calibration to isotope dilution-mass spectrometry. Refer to KDIGO guidelines for clinical interpretation. In patients with unstable renal function, e.g. those with acute kidney injury, the eGFR may not accurately reflect actual GFR. Performed By: #### 2 777-1, 3053-6, 3051-0, 40143-2, 3024-7, 3016-3, 3026-2, 75512-5 ####[facility] [id number] [place] [id number] [place] Glucose [Mass/Vol] 77 mg/dL Normal 74-99 [facility] Comment on above: Order Comment: Speci men Type: BLOOD SPECIMENOrdering Facility: [facility] Address: [address] [place] [id number] Result Comment: The [place] Diabetes Association (ADA) provides guidance for cutoff values for fasting glucose and random glucose. The ADA defines fasting as no caloric intake for at least 8 hours. Fasting plasma glucose results between 100 to 125 mg/dL indicate increased risk for diabetes (prediabetes). Fasting plasma glucose results greater than or equal to 126 mg/dL meet the criteria for diagnosis of diabetes. In the absence of unequivocal hyperglycemia, results should be confirmed by repeat testing. In a patient with classic symptoms of hyperglycemia or hyperglycemic crisis, random plasma glucose results greater than or equal to 200 mg/dL meet the criteria for diagnosis of diabetes. Reference: Standards of Medical Care in Diabetes 2016, [place] Diabetes Association. Diabetes Care. 2016.39(Suppl 1). Performed By: #### 2 777-1, 3053-6, 3051-0, 99884-2, 3024-7, 3016-3, 3026-2, 89008-6 ####[facility]CL[facility] [id number] [address] [address] [place] Potassium [Moles/Vol] 4.2 mmol/L Normal 3.7-5.1 [facility] Comment on above: Order Comment: Speci men Type: BLOOD SPECIMENOrdering Facility: [facility] Address: [place] [address] Performed By: #### 2 777-1, 3053-6, 3051-0, 03734-3, 3024-7, 3016-3, 3026-2, 70272-4 ####[facility] LABIA [id number] [place] [id number] [place] Protein [Mass/Vol] 7.3 g/dL Normal 6.3-8.0 [facility] Comment on above: Order Comment: Speci men Type: BLOOD SPECIMENOrdering Facility: [facility] Address: [address] [place] [address] Performed By: #### 2 777-1, 3053-6, 3051-0, 76184-0, 3024-7, 3016-3, 3026-2, 43374-5 ####[facility]CL[facility] [id number] [place] [address] [place] Sodium [Moles/Vol] 139 mmol/L Normal 136-144 [facility] Comment on above: Order Comment: Speci men Type: BLOOD SPECIMENOrdering Facility: [facility] Address: [address] Performed By: #### 2 777-1, 3053-6, 3051-0, 75465-2, 3024-7, 3016-3, 3026-2, 99327-0 ####[facility]CL[facility] [id number] [place] [address] [place] Urea nitrogen [Mass/Vol] 17 mg/dL Normal 7-21 [facility] Comment on above: Order Comment: Speci men Type: BLOOD SPECIMENOrdering Facility: [facility] Address: [address] [address] Performed By: #### 2 777-1, 3053-6, 3051-0, 46557-3, 3024-7, 3016-3, 3026-2, 14312-1 ####[facility] [id number] [place] [id number] [place] HCG Preg Ur Qlon 05-08-2022 HCG ( test) Ql (U) Negative Normal Negative [facility] Comment on above: Order Comment: Speci men Type: URINE SPECIMENOrdering Facility: [facility] Address: [address] [place] [address] Result Comment: This test is intended to aid in the early detection of . Very dilute urine samples, as indicated by a low specific gravity, may not contain merchandising representative levels of hCG. This test detects intact hCG only. This test does not reliably detect hCG degradation products, including free-beta subunit and beta-core fragment. Therefore, this test may show reduced reactivity in urine after 8 weeks gestation. A number of conditions other than , including trophoblastic disease and certain non-trophoblastic neoplasms cause elevated levels of hCG. As with any assay employing mouse antibodies, the possibility exists for interference by human anti-mouse antibodies (HAMA) in the specimen. The test provides a presumptive diagnosis for . 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 Additional comments have been made where appropriate. It has been reviewed in its entirety with the patient and her . 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 Reports episode of throwing her head back, her arms were extended straight in front of her body, whole body stifness and shaking with eyes rolled back and retained awareness with inability to respond lasting a few minutes (longest episode 4 minutes) which began in 2019 and have improved with addition of LTG as well as staring spells. Patient was seen prior to admission to establish care - please see excerpt in italics below for further history. Currently taking LTG 25mg daily. SEIZURE HISTORY: From Initial Office Visit (05/08/2022) with Divina Griffin PA-C: Gerardo Powell is a 47 year old right handed female referred by Dr. 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 She reports episodes of concern began about two years ago around the time of her hip replacement. witnessed episode and though patient was having a stroke. Reports she tossed her head back, her arms were extended straight in front of her body, she had whole body stifness and shaking with eyes rolled back and retained awareness with inability to respond lasting a few minutes (longest episode 4 minutes). For the remained of they day she will go in and out of the episode. Previously episodes were occurring daily but since starting LTG have only been happening a few times per month with last episode 2 weeks ago. Recently they have noticed that she will have a staring spell lasting for a few minutes prior to the episode during which she will be unresponsive, no automatisms noted. She also notes staring spells independent of episodes occurring multiple times per day. She also reports left sided facial drooping. Unsure onset but feels it has been getting worse recently and will worsen prior to an episode. Currently reports facial drooping is almost constant. She has a history of Figueroa's palsy two times in the past (20 years ago and 2 years ago). Additionally reports difficulty with short term memory, increased ticks (particularly extension of right arm), frequent and intense headaches and numbness and tingling of bilateral arms she attributes to a pinched nerve. She reports following previously with multiple neurologists and has had 4 prior inpatient EMU evaluations, only one available in record. Most recent has inpatient EMU evaluation at [facility] in November 2021 which captured a typical event without EEG correlate. Patient feels she has not been given answers with any previously studies but believes she has been told she had both PNES and epileptic seizures, unable to remember any reported abnormalities on previous EEG. She is currently taking LTG 25mg daily which has improved episode frequency but has not had an effect on mood. From [facility] Neurology Office Visit (12/26/2021) with Dr. Cadet: Gerardo Powell is a 46 y.o. female. The patient was accompanied today with her . She currently lives with her and 2 dogs. She was diagnosed with figueroa's palsy 10 years ago. Patient had a titanium hip replacement performed 2 years ago and then started having seizures a month later. The patient states that the seizures have been going on for last 2 years since around 2019. The seizures are described as different semiology including episodes of spacing out, episodes of isolated back, shaking in the hands lasting for a few minutes and generalized convulsion. At times, she has shaking in the right upper extremity and numbness which may last for few minutes. These episodes tend to occur almost every other day. The patient has asso (more content not included)... Normal [facility] Magnesium [facility]-ncon 05-08 Magnesium [Mass/Vol] 2.0 mg/dL Normal 1.7-2.3 [facility] Comment on above: Order Comment: Speci men Type: BLOOD SPECIMENOrdering Facility: [facility] Address: [address] [place], [place] [id number] Performed By: #### 2 777-1, 3053-6, 3051-0, 56394-7, 3524-7, 3016-3, 3026-2, 68294-4 ####[facility]CL[facility] [id number] [address] [place] NURSING PROGon 05-08-2022 NURSING PROG HNO ID: [id number] Author: Carol Giraldo RN Service: Nursing Author Type: Registered Nurse Type: Nursing Progress Note Filed: 05/08/2022 6:31 PM Note Text: Patient admitted to M60. C/o OS ptosis, left side of mouth pulling, left cheek spasms and numbness around OS for the past 2 years. No other immediate concerns noted at this time. Normal [facility] Phosphate SerPl-mCncon 05-08 Phosphate [Mass/Vol] 3.7 mg/dL Normal 2.7-4.8 [facility] Comment on above: Order Comment: Speci men Type: BLOOD SPECIMENOrdering Facility: [facility] Address: [address] [place] [address] Performed By: #### 2 777-1, 3053-6, 3051-0, 38557-3, 3024-7, 3016-3, 3026-2, 57183-3 ####[facility] [id number] [place] [address] [place] SARS-CoV-2 RNA Resp Ql JEN+p robeon 05-08-2022 SARS-CoV-2 (COVID-19) RNA JEN+probe Ql (Resp) COVID 19 RESULT: Not detected The method used is RT-PCR or an equivalent NAAT method. Reference Range(the expected result in uninfected individuals): Not detected Normal [facility] Comment on above: Performed By: #### 9 4500-6 ####[facility] [id number] [place] [address] [place] T3 SerPl-mCncon 05-08-2022 T3 [Mass/Vol] 90 ng/dL Normal 79-165 [facility] Comment on above: Order Comment: Speci men Type: BLOOD SPECIMENOrdering Facility: [facility] Address: [address] [place] [id number] Performed By: #### 2 777-1, 3053-6, 3051-0, 74197-8, 3024-7, 3016-3, 3026-2, 53619-0 ####[facility] [id number] [place] [id number] [place] T3Free SerPl-mCncon 05-08-19 23 Free T3 [Mass/Vol] 2.0 pg/mL Low 2.3-4.1 [facility] Comment on above: Order Comment: Speci men Type: BLOOD SPECIMENOrdering Facility: [facility] Address: [address] [place] [id number] Performed By: #### 2 777-1, 3053-6, 3051-0, 97205-6, 3024-7, 3016-3, 3026-2, 46601-9 ####[facility] [id number] [place] [address] [place] T4 Free SerPl-mCncon 023 Free T4 [Mass/Vol] 0.4 ng/dL Low 0.9-1.7 [facility] Comment on above: Order Comment: Speci men Type: BLOOD SPECIMENOrdering Facility: [facility] Address: [address] [place] [address] Performed By: #### 2 777-1, 3053-6, 3051-0, 36992-8, 3024-7, 3016-3, 6-2, 90124-6 ####[facility] [id number] [place] [address] [place] T4 SerPl-mCncon 05-08-2022 T4 [Mass/Vol] 3.4 ug/dL Low 5.5-10.2 [facility] Comment on above: Order Comment: Speci men Type: BLOOD SPECIMENOrdering Facility: [facility] Address: [address] [place], [place] [address] Performed By: #### 2 777-1, 3053-6, 3051-0, 67467-5, 3024-7, 3016-3, 3026-2, 74921-2 ####[facility] [id number] [place] [address] [place] TSH SerPl-aCncon 05-08-2022 TSH Qn 50.400 m[IU]/L High 0.270-4.200 [facility] Comment on above: Order Comment: Speci men Type: BLOOD SPECIMENOrdering Facility: [facility] Address: [address] [place], [place] [address] Result Comment: If t he patient is , TSH reference range varies by gestational period: First Trimester (weeks 9-12): 0.180-2.990 mIU/L Second Trimester: 0.110-3.980 mIU/L Third Trimester: 0.480-4.710 mIU/L Maulik Reid et al. A Practical Approach for the Verifications and Determination of Site- and Trimester-Specific Reference Intervals for Thyroid Function tests in . Thyroid, 2019:29:3:412-420. Savage Julien, et al. 2017 Guidelines of the [place] Thyroid Association for the Diagnosis and Management of Thyroid Disease during and the . Thyroid, 2017:27:3:315-389. Performed By: #### 2 777-1, 3053-6, 3051-0, 70881-5, 3024-7, 3016-3, 3026-2, 61948-4 ####[facility] [id number] [place] [id number] [place] lamoTRIgine SerPl-ncon lamoTRIgine [Mass/Vol] 0.8 ug/mL Low 1.0-13.0 [facility] Comment on above: Order Comment: Speci men Type: BLOOD SPECIMENOrdering Facility: [facility] Address: [address] [place] [phone] Result Comment: This test was developed and its performance characteristics determined by [facility] [place] ([facility]). It has not been cleared or approved by the FDA. [facility] is regulated under CLIA as qualified to perform high-complexity testing. This test is used for clinical purposes. It should not be regarded as investigational or for research. Performed By: #### 6 948-4 ####[facility] LABIA [id number] [place] [id number] [place] CNCONon 03-21-2022 CNCON Consults (NE50MN) -------- GERARDO POWELL ([id number]) 1975 F Date Time Provider Department 03/21/22 JEFFREY, IMAD NE50MN During your visit today, we recorded the following information about you: Sin Christian APRN.[place] 03/22/2022 7:14 AM Signed [facility] Review of Records Patient: Gerardo Powell Address: [address] [place] [address] Impression: Review of records for Gerardo Powell, a 47 year old female, being referred by Dr. Americo Cadet [[place], [place]] to Any Epileptologist for further evaluation and treatment. Patient has previously diagnosed PNES. EEG from 2021 reported as normal. MRI was not completed. CT brain from 2020 reported as normal. Patient has trialed 2 AEDs. As she is having episodes at least weekly and her workup has been unrevealing to date, VEEG is indicated for event characterization and diagnostic evaluation to determine best treatment options. -- Summary: Onset: September 2019 Recent Seizure Frequency: 1-2 per week Seizure Description(s) Available: Type A: Rigid muscles, loss of consciousness Duration: 15 minutes Current AED(s): Lamotrigine Previous AED(s): Levetiracetam PMH: headaches, FRITZ, PRIOR EVALUATIONS: [facility] [place], [address], [place] [address] EEG ([facility], 11/27/2021-11/28/2021): Normal continuous video-EEG. The event captured did not correlate with electrographic seizure No epileptiform discharges were identified MRI brain wo/w contrast (NA): CT brain from 11/18/2020 was normal. -- ANTHONY Recommendations: - Admit to EMU for VEEG monitoring, diagnostic evaluation Location: Main [place] - Visit with epileptologist prior to admission - Additional testing to be considered by epilepsy clinicians Signed: Sin Christian APRN.HEAD OPERATOR [place] March 21, [address] Caldwell for review and recommendations. - MD Recommendations (as discussed with Dr. Caldwell): - Please proceed with the above plan. Please route this encounter to the EMU Scheduling Pool ( P EMU ) or PMU Scheduling Pool ( P PMU ) through LOS AND Follow up PHASE 1.0 AND 1.5 ORDER SYNOPSIS Patient: Gerardo Powell ([id number]) Best contact number: [phone] Insurance: Payor: SYLVIA / Plan: ARTURO FERRER PPO OOS / Product Type: PPO / -------- Scheduling Team: Please call for adult patients: Kt Ramsey ([phone]) Ajay Mejia ([phone]) Radha Santana([phone]) Celeste Rodriguez([phone]) Please call for pediatric patients: Ajay Mejia ([phone]) Radha Santana ([phone]) Kt Ramsey ([phone]) Celeste Rodriguez([phone]) -------- 03/21/2022 Admission Type EMU Adult Number of Days requested [address] [place] [address] Admit Priority Routine PURPOSE 03/21/2022 Patient Being Considered for Epilepsy Surgery? No VEEG recommended to assess seizure burden, address new AND concerning syymptom-sign complex, and/or clarify syndromic epilepsy diagnosis? Yes 03/21/2022 Sphenoidal monitoring No Electrode placement Standard Appointments and Tests PRE-PROCEDURE AND PRE-OPERATIVE COVID (AMB COVID PRE-PROCEDURE TESTING PANEL) EPIL EEG LEAD PLACEMENT EPIL VEEG ADMIT TO EMU/PMU Consultations None Please route this encounter to the EMU Scheduling pool ( P EMU ) or PMU Scheduling pool ( P PMU ) through LOS AND Follow up Scheduling coordinators: For all VNS patients being scheduled for SHIRA, please schedule VNS off/on office visits. Allergies As of Date: 03/21/2022 (Not on File) Date Reviewed: Never Reviewed Primary Visit Diagnosis:Abnormal involuntary movement [R25.9] Order(s):PRE-PROCEDURE AND PRE-OPERATIVE COVID [SQPOCOVD] Order #: [id number] FUTURE EPIL EEG LEAD PLACEMENT [[id number]] Order #: [id number]: 1 FUTURE EPIL VEEG ADMIT TO EMU/PMU [[id number]] Order #: [id number]: 1 Problem List As Of Date: 03/21/2022 (None) Encounter Status:Closed by SIN CHRISTIAN on 03/22/22 [facility] 03-21-2022 CNPN Telephone (NE50MN) -------- SHERRYGERARDO ([id number]) 1975 F Date Time Provider Department 03/21/22 FISH CALDWELL NE50MN During your visit today, we recorded the following information about you: Celeste Rodriguez 03/21/2022 10:51 AM Signed Celeste Rodriguez 03/21/2022 1:20 PM Signed [facility] Initial Intake Interview March 21, 2022 1:14 PM Caller: Gerardo Relationship to pt: Self Patient name: Gerardo Powell Age: [age] year old Address: [address] [place] [address] (home) Insurance: Payor: ANTHEM / Plan: BLUE CARD PPO OOS / Product Type: PPO / Referred by: Physician: Referring to: Any Reason for Evaluation: further evaluation and treatment Previously evaluated at: [facility] [place], [address] [place] [address] Fax: N/A Age AND date of onset of seizures/spells: September 2019 Frequency: 1-2 a week Seizure Type A: rigid muscles, LOC Duration: 15 minutes Seizure Type B: N/A Duration: N/A Recent injuries (within last 6 months)? No Recent surgeries (within the last 6 weeks)? No Seizure medications Current medications: - Lamotrigine Past medications: - Levetiracetam Developmental disabilities? No Previous neurosurgery? No Type AND Date: N/A Implants (VNS/NeuroPace/shunt/ort hodontic hardware/pacemaker)? No Type AND Date: N/A Would patient require anaesthesia or sedation? No Additional pertinent medical information: No other information Test Yes or No Date Facility EEG Yes 2021 [facility] Video EEG Yes 2021 [facility] MRI brain No CT brain Yes 2020 [facility] fMRI brain No PET No Ictal SPECT No SHIRA No Luke No Neuropsych testing No Visual field No Invasive video EEG (brain mapping) No If invasive video-EEG monitoring was performed, request: -- brain maps including any power point presentations -- disks of the study If resection was performed, request: -- operative notes -- surgical pathology reports If patient has had any presurgical or surgical workup, has imaging been requested? No Signed: Celeste Rodriguez 03/21/2022 1:23 PM Signed [facility] imaging/records received: March 21, 2022 -EEG Report -CT Brain Report -Consult Notes Care Everywhere Allergies As of Date: 03/21/2022 (Not on File) Date Reviewed: Never Reviewed Reason for Visit: Future Appointment [256] Cmt: [place], [place], Any Problem List As Of Date: 03/21/2022 (None) Encounter Status:Closed by CELESTE RODRIGUEZ on 03/21/22 Normal [facility] Basic Metab w/rfx MGon 11-28 (cont.) Normal [facility] [place] Comment on above: Result Comment: Aver age GFR for 40-49 years old: 99 mL/min/1.73sq m Chronic Kidney Disease: <60 mL/min/1.73sq m Kidney failure: <15 mL/min/1.73sq m eGFR calculated using average adult body mass. Additional eGFR calculator available at: http://www.[employer]/multiple_crcl_2011.htm Performed By: #### C DP, BMPX #### [facility] [address] [place] [id number] Director Of Cardiac Cath Lab: Ramez Odonnell MD Anion gap [Moles/Vol] 10 mmol/L Normal 9-17 [facility] Comment on above: Performed By: #### C DP, BMPX #### [facility] [address] [place] [address] Director Of Cardiac Cath Lab: Ramez Odonnell MD Calcium [Mass/Vol] 9.0 mg/dL Normal 8.6-10.4 [facility] [place] Comment on above: Performed By: #### C DP, BMPX #### [facility] [address] [place] [address] Director Of Cardiac Cath Lab: Ramez Odonnell MD Chloride [Moles/Vol] 99 mmol/L Normal 98-107 [facility] Comment on above: Performed By: #### C DP, BMPX #### [facility] [address] [place] [address] Director Of Cardiac Cath Lab: Ramez Odonnell MD CO2 [Moles/Vol] 27 mmol/L Normal 20-31 [facility] [place] Comment on above: Performed By: #### C DP, BMPX #### [address] [address] Director Of Cardiac Cath Lab: Ramez Odonnell MD Creatinine [Mass/Vol] 0.97 mg/dL High 0.50-0.90 [facility] Comment on above: Performed By: #### C DP, BMPX #### [address] [address] Director Of Cardiac Cath Lab: Ramez Odonnell MD GFR, Amer >60 Normal >[address] [facility] Comment on above: Performed By: #### C DP, BMPX #### [address] [address] Director Of Cardiac Cath Lab: Ramez Odonnell MD GFR,non Amer >60 Normal >60 [facility] Comment on above: Performed By: #### C DP, BMPX #### [address] [address] Director Of Cardiac Cath Lab: Ramez Odonnell MD Glucose [Mass/Vol] 89 mg/dL Normal 70-99 [facility] [place] Comment on above: Performed By: #### C DP, BMPX #### [address] [address] Director Of Cardiac Cath Lab: Ramez Odonnell MD Potassium [Moles/Vol] 4.3 mmol/L Normal 3.7-5.3 [facility] Comment on above: Performed By: #### C DP, BMPX #### [address] [address] Director Of Cardiac Cath Lab: Ramez Odonnell MD Sodium [Moles/Vol] 136 mmol/L Normal 135-144 [facility] [place] Comment on above: Performed By: #### C DP, BMPX #### [facility] [address] [place] [address] Director Of Cardiac Cath Lab: Ramez Odonnell MD Urea nitrogen [Mass/Vol] 15 mg/dL Normal 6-20 [facility] [place] Comment on above: Performed By: #### C DP, BMPX #### [facility] [address] [place] [address] Director Of Cardiac Cath Lab: Ramez Odonnell MD Basic Metabolic Panel w/ Ref sapphire to MGon 11-28-2021 Anion gap [Moles/Vol] 10 mmol/L 9 - 17 mmol/L [facility] Calcium [Mass/Vol] 9.0 mg/dL 8.6 - 10. 4 mg/dL [facility] Chloride [Moles/Vol] 99 mmol/L 98 - 10 7 mmol/L [facility] CO2 [Moles/Vol] 27 mmol/L 20 - 31 mmol/L [facility] Creatinine [Mass/Vol] 0.97 mg/dL High 0.5 - 0.9 mg/dL [facility] GFR >60 60 - PI NF mL/min [facility] GFR Non- >60 60 - PINF mL/min [facility] GFR/1.73 sq M.predicted MDRD (S/P/Bld) [Vol rate/Area] [facility] Comment on above: Average GFR for 40-4 9 years old: 99 mL/min/1.73sq m Chronic Kidney Disease: <60 mL/min/1.73sq m Kidney failure: <15 mL/min/1.73sq m eGFR calculated using average adult body mass. Additional eGFR calculator available at: http://www.[employer]/multiple_crcl_2011.htm Glucose [Mass/Vol] 89 mg/dL 70 - 99 mg/dL [facility] Interpretation and review of laboratory results Abnormal [facility] Clinked Potassium [Moles/Vol] 4.3 mmol/L 3.7 - 5.3 mmol/L [facility] Sodium [Moles/Vol] 136 mmol/L 135 - 144 mmol/L [facility] Urea nitrogen (BldV) [Mass/Vol] 15 mg/dL 6 - 20 mg/dL [facility] CBC with Auto Differentialon 11-28-2021 Absolute Eos # 0.33 [facility] Clinked Absolute Immature Granulocyte 0.04 [facility] Absolute Lymph # 4.54 High [facility] Absolute [place] # 0.77 [facility] RS [facility] Basophils (Bld) [#/Vol] 0.08 10*3/uL [facility] Basophils/100 WBC (Bld) 1 % 0 - 2 % B ON [facility] Eosinophils/100 WBC (Bld) 3 % 1 - 4 % [facility] Hematocrit (Bld) [Volume fraction] 41.6 % 36.3 - 47.1 % [facility] Hemoglobin (Bld) [Mass/Vol] 13.8 g/dL 11.9 - 15.1 g/dL [facility] Immature granulocytes/100 WBC (Bld) 0 % 0 [facility] Interpretation and review of laboratory results Abnormal [facility] Lymphocytes/100 WBC (Bld) 41 % 24 - 43 % [facility] MCH (RBC) [Entitic mass] 29.9 pg 25.2 - 33.5 pg [facility] MCHC (RBC) [Mass/Vol] 33.2 g/dL 28.4 - 34.8 g/dL [facility] MCV (RBC) [Entitic vol] 90.2 fL 82.6 - 102.9 fL [facility] Monocytes/100 WBC (Bld) 7 % 3 - 12 % B ON [facility] NRBC Automated 0.0 0.0 per 100 WBC [facility] Platelet distribution width (Bld) [Ratio] 14.1 % 11.8 - 14.4 % [facility] Platelet mean volume (Bld) [Entitic vol] 10.2 fL 8.1 - 13.5 fL [facility] Platelets (Bld) [#/Vol] 389 10*3/uL [facility] RBC (Bld) [#/Vol] 4.61 10*6/uL 3.95 - 5.1 1 m/uL [facility] Segmented neutrophils/100 WBC (Bld) 48 % 36 - 65 % [facility] Segs Absolute 5.38 [facility] WBC (Bld) [#/Vol] 11.1 10*3/uL [facility] CBC with Diffon 11-28-2021 Abs. Basophil 0.08 k/uL Normal 0.00-0.20 [facility] Comment on above: Performed By: #### C DP, BMPX #### [address] [address] Director Of Cardiac Cath Lab: Ramez Odonnell MD Abs.Imm.Granulocyte 0.04 k/uL Normal 0.00-0.30 [facility] Comment on above: Performed By: #### C DP, BMPX #### [place] [address] Director Of Cardiac Cath Lab: Ramez Odonnell MD Abs.Neutrophil (Seg) 5.38 k/uL Normal 1.50-8.10 [facility] Comment on above: Performed By: #### C DP, BMPX #### [address] [address] Director Of Cardiac Cath Lab: Ramez Odonnell MD Basophils/100 WBC (Bld) 1 % Normal 0-2 [facility] Comment on above: Performed By: #### C DP, BMPX #### [address] [address] Director Of Cardiac Cath Lab: Ramez Odonnell MD Eosinophils (Bld) [#/Vol] 0.33 10*3/uL Normal 0.00-0.44 [facility] Comment on above: Performed By: #### C DP, BMPX #### [address] [address] Director Of Cardiac Cath Lab: Ramez Odonnell MD Eosinophils/100 WBC (Bld) 3 % Normal 1-4 [facility] Comment on above: Performed By: #### C DP, BMPX #### [address] [address] Director Of Cardiac Cath Lab: Ramez Odonnell MD Erythrocyte distribution width (RBC) [Ratio] 14.1 % Normal 11.8-14.4 [facility] Comment on above: Performed By: #### C DP, BMPX #### [address] [address] Director Of Cardiac Cath Lab: Ramez Odonnell MD Hematocrit (Bld) [Volume fraction] 41.6 % Normal 36.3-47.1 [facility] Comment on above: Performed By: #### C DP, BMPX #### [address] [address] Director Of Cardiac Cath Lab: Ramez Odonnell MD Hemoglobin (Bld) [Mass/Vol] 13.8 g/dL Normal 11.9-15.1 [facility] Comment on above: Performed By: #### C DP, BMPX #### [address] [address] Director Of Cardiac Cath Lab: Ramez Odonnell MD Immature granulocytes/100 WBC (Bld) 0 % Normal 0 [facility] Comment on above: Performed By: #### C DP, BMPX #### [address] [address] Director Of Cardiac Cath Lab: Ramez Odonnell MD Lymphocytes (Bld) [#/Vol] 4.54 10*3/uL High 1.10-3.70 [facility] Comment on above: Performed By: #### C DP, BMPX #### [address] [address] Director Of Cardiac Cath Lab: Ramez Odonnell MD Lymphocytes/100 WBC (Bld) 41 % Normal 24-43 [facility] Comment on above: Performed By: #### C DP, BMPX #### [address] [address] Director Of Cardiac Cath Lab: Ramez Odonnell MD MCH (RBC) [Entitic mass] 29.9 pg Normal 25.2-33.5 [facility] Comment on above: Performed By: #### C DP, BMPX #### [place] [address] Director Of Cardiac Cath Lab: Ramez Odonnell MD MCHC (RBC) [Mass/Vol] 33.2 g/dL Normal 28.4-34.8 [facility] Comment on above: Performed By: #### C DP, BMPX #### [place] [address] Director Of Cardiac Cath Lab: Ramez Odonnell MD MCV (RBC) [Entitic vol] 90.2 fL Normal 82.6-102.9 [facility] Comment on above: Performed By: #### C DP, BMPX #### [place] [address] Director Of Cardiac Cath Lab: Ramez Odonnell MD Monocytes (Bld) [#/Vol] 0.77 10*3/uL Normal 0.10-1.20 [facility] Comment on above: Performed By: #### C DP, BMPX #### [place] [address] Director Of Cardiac Cath Lab: Ramez Odonnell MD Monocytes/100 WBC (Bld) 7 % Normal 3-12 [facility] Comment on above: Performed By: #### C DP, BMPX #### [place] [address] Director Of Cardiac Cath Lab: Ramez Odonnell MD Neutrophil (Seg) 48 % Normal 36-[address] [facility] Comment on above: Performed By: #### C DP, BMPX #### [place] [address] Director Of Cardiac Cath Lab: Ramez Odonnell MD NRBC Automated 0.0 per 100 WBC Normal 0.0 [facility] Comment on above: Performed By: #### C DP, BMPX #### [facility] [address] [place] [address] Director Of Cardiac Cath Lab: Ramez Odonnell MD Platelet mean volume (Bld) [Entitic vol] 10.2 fL Normal 8.1-13.5 [facility] Comment on above: Performed By: #### C DP, BMPX #### [address] [address] Director Of Cardiac Cath Lab: Ramez Odonnell MD Platelets (Bld) [#/Vol] 389 10*3/uL Normal 138-453 [facility] Comment on above: Performed By: #### C DP, BMPX #### [facility] [address] [place] [address] Director Of Cardiac Cath Lab: Ramez Odonnell MD RBC (Bld) [#/Vol] 4.61 10*6/uL Normal 3.95-5.11 [facility] Comment on above: Performed By: #### C DP, BMPX #### [address] [address] Director Of Cardiac Cath Lab: Ramez Odonnell MD WBC (Bld) [#/Vol] 11.1 10*3/uL Normal 3.5-11.3 [facility] Comment on above: Performed By: #### C DP, BMPX #### [address] [address] Director Of Cardiac Cath Lab: Ramez Odonnell MD EEG video monitoringon 11-28 Tony Witt MD 11/28/2021 9:11 PM Referring physician: Kita Alanis APRN - [place] Date: 11/28/2021 Start Time:11/27/2021 @ 1600 End Time: 11/28/2021 @ 1600 Indication Patient with encephalopathy, EEG done to rule out subclinical seizures. Introduction This continuous video-EEG was acquired using a [employer] workstation at 256 samples/s. Electrodes were placed according to the International 10-20 system. Automated spike and seizure detection algorithms were applied. Video was recorded during this study. Description During the maximal alert state, a well-regulated 8-9 Hz posterior dominant rhythm was seen which was symmetrical and attenuated to eye opening. No consistent focal slowing or interhemispheric asymmetry was noted. Normal sleep structures were observed. There were no interictal epileptiform discharges or electrographic seizures. Events 11/27/2021 @ 1621 11/28/2021 @ 1342, 1405 and [id number] Clinically: staff reported eye flutter and decrease responsiveness. Per staff report right hand began to shake along with her fingers. Then her eyes began to twitch and her head began to gently shake. She let out a moan which sounded like a cry or whimper and then she made a loud gasping noise right before her head dropped. After that her eyes opened and she was tearful EEG: there was no correlation with electrographic seizures. Impression Normal continuous video-EEG. The event captured did not correlate with electrographic seizure. EKG lead did not show clear arrhythmia, if still in concern consider formal EKG or correlation with telemetry. No epileptiform discharges were identified. Please note the absence of such activity in this record cannot conclusively rule out an epileptic disorder. If such is still clinically suspected, a repeat study with prolonged sampling may be helpful. Tony Witt MD Epilepsy Board Certified. Neurology Board Certified. Electronically Signed [employer] Phone: EEG video monitoringOrdered By: Tony Witt on 11-28-2021 [employer] Phone: [facility]06 SARS-CoV-2 (COVID-19) RNA JEN+probe Ql (Unsp spec) Not detected Normal NOT DETECTED [facility] Comment on above: Result Comment: When diagnostic testing is negative, the possibility of a false negative should be considered in the context of a patient's recent exposures and the presence of clinical signs and symptoms consistent with SARS-CoV-2. This test is not yet approved or cleared by the [place] FDA. When there are no FDA-approved or cleared tests available, and other criteria are met, FDA can make tests available under an emergency access mechanism called an Emergency Use Authorization (EUA). The EUA for this test is supported by the Field Identification Specialist of Health and Human Service's declaration that circumstances exist to justify the emergency use of in vitro diagnostics for the detection and/or diagnosis of the virus that causes COVID-19. This EUA will remain in effect for the duration of the COVID-19 declaration justifying emergency of IVDs, unless it is terminated or revoked by the FDA (after which the test may no longer be used). Performed By: #### C VDTB #### [facility] [address] [place] [address] Dr. Beny Flaherty INFLUENZA A AND B [facility] 09-19 INFLUANE SEE BELOW Normal [facility] Comment on above: Result Comment: Nega tive for Flu A protein angiten. Infection due to Flu A cannot be ruled out. Flu A angiten in the sample may be below the detection limit of the test. Performed By: #### I NFLUAB #### [facility] [address] [place] [address] Dr. Beny Flaherty INFLUBNEG SEE BELOW Normal [facility] Comment on above: Result Comment: Nega tive for Flu B protein antigen. Infection due to Flu B cannot be ruled out. Flu B antigen in the sample may be below the detection limit of the test. Performed By: #### I NFLUAB #### [facility] [address] [place] [address] Dr. Beny Flaherty INFLUENZA A AG Negative Normal NEGATIVE SEE COMMENT [facility] Comment on above: Performed By: #### I NFLUAB #### [facility] [address] [place] [address] Dr. Beny Flaherty INFLUENZA B AG Negative Normal NEGATIVE SEE COMMENT [facility] Comment on above: Performed By: #### I NFLUAB #### [facility] [address] [place] [address] Dr. Beny Flaherty INTERNAL CONTROLS Within Normal Limits Normal Wi thin Normal Limits [facility] Comment on above: Performed By: #### I NFLUAB #### [facility] [address] [place] [address] Dr. Beny Flaherty XR CHEST 1 Von 09-19-2021 XR CHEST 1 V EXAMINATION: XR CHES T 1 V HISTORY: Cough COMPARISON: Chest x-ray 07/31/2021 TECHNIQUE: Portable chest FINDINGS: The lung parenchyma is free of consolidation or infiltrate. No pneumothorax or pleural effusion. The cardiac, mediastinal and hilar contours are normal. The visualized osseous structures exhibit no gross abnormality. IMPRESSION: Normal chest x-ray Electronically authenticated by: BRENNEN ZULETA Date: 2021-09-19 15:26 Normal [facility] PROLACTINon 08-01-2021 Prolactin 3.6 ng/mL Critically low 4.8-23.3 [facility] Comment on above: Performed By: #### P ROLAC #### [facility] [address] [address] [address] Bney Flaherty CARDIAC POOL ADMITon 022 CK [Catalytic activity/Vol] 55 U/L Normal 26-192 [facility] Comment on above: Performed By: #### P HVEN #### [facility] [address] [address] [address] Beny Flaherty CK.MB [Mass/Vol] ng/mL Normal <=3.60 [facility] Comment on above: Performed By: #### P HVEN #### [facility] [address] [address] [address] Beny Flaherty HSTROP 4.6 pg/mL Normal 4.0-51.3 [facility] Comment on above: Result Comment: CUT- OFF POINTS HAVE BEEN ESTABLISHED BASED ON THE FOURTH UNIVERSAL DEFINITIONS OF MYOCARDIAL INFARCTION. THE UPPER REFERENCE LIMIT (URL) OF TROPONIN, DEFINED THE 99TH PERCENTILE OF cTnI DISTRIBUTION IN A REFERENCE POPULATION, HAS BEEN CONFIRMED THE DECISION THRESHOLD FOR MD DIAGNOSIS. Performed By: #### P HVEN #### [facility] [address] [address] [address] Beny Flaherty SHYANNE 31 ng/mL Normal 9-82 [facility] Comment on above: Performed By: #### P HVEN #### [facility] [address] [place] [address] Dr. Beny Flaherty CBC AUTO DIFFon 07-31-2021 BASO # 0.1 103/ul Normal 0.0-0.1 [facility] Comment on above: Performed By: #### C BC #### [facility] [address] [place] [address] Dr. Beny Flaherty Basophils/100 WBC (Bld) 0.5 % Normal 0.2-2.0 [facility] Comment on above: Performed By: #### C BC #### [facility] [address] [place] [address] Dr. Beny Flaherty EO # 0.4 103/ul Normal 0.0-0.7 [facility] Comment on above: Performed By: #### C BC #### [facility] [address] [place] [address] Dr. Beny Flaherty Eosinophils/100 WBC (Bld) 3.6 % Normal 0.9-7.0 [facility] Comment on above: Performed By: #### C BC #### [facility] [address] [place] [address] Dr. Beny Flaherty Erythrocyte distribution width (RBC) [Ratio] 14.1 % Normal 11.0-15.0 [facility] Comment on above: Performed By: #### C BC #### [facility] [address] [place] [address] Dr. Beny Flaherty Hematocrit (Bld) [Volume fraction] 45.9 % Normal 36.0-48.0 [facility] Comment on above: Performed By: #### C BC #### [facility] [address] [place] [address] Dr. Beny Flaherty Hemoglobin (Bld) [Mass/Vol] 14.5 g/dL Normal 12.0-16.0 [facility] Comment on above: Performed By: #### C BC #### [facility] [address] [place] [address] Dr. Beny Flaherty IG # 0.05 10e3/ul Critically high 0.00-0.03 [facility] Comment on above: Performed By: #### C BC #### [facility] [address] [place] [address] Dr. Beny Flaherty IG % 0.4 % Normal 0.0-0.5 [facility] Comment on above: Performed By: #### C BC #### [facility] [address] [place] [address] Dr. Beny Flaherty LYMPH # 2.9 103/ul Normal 1.2-3.8 [facility] Comment on above: Performed By: #### C BC #### [facility] [address] [place] [address] Dr. Beny Flaherty Lymphocytes/100 WBC (Bld) 25.4 % Normal 20.5-60.0 [facility] Comment on above: Performed By: #### C BC #### [facility] [address] [place] [address] Dr. Beny Flaherty MANUAL DIFF REQ NO Normal [facility] Comment on above: Performed By: #### C BC #### [facility] [address] [place] [address] Dr. Beny Flaherty MCH (RBC) [Entitic mass] 28.7 pg Normal 26.7-34.0 [facility] Comment on above: Performed By: #### C BC #### [facility] [address] [place] [address] Dr. Beny Flaherty MCHC (RBC) [Mass/Vol] 31.6 g/dL Normal 29.9-35.2 [facility] Comment on above: Performed By: #### C BC #### [facility] [address] [place] [address] Dr. Beny Flaherty MCV (RBC) [Entitic vol] 90.9 fL Normal 81.0-99.0 [facility] Comment on above: Performed By: #### C BC #### [facility] [address] [place] [address] Dr. Beny Flaherty MONO # 0.7 103/ul Normal 0.3-0.8 [facility] Comment on above: Performed By: #### C BC #### [facility] [address] [place] [address] Dr. Beny Flaherty Monocytes/100 WBC (Bld) 5.7 % Normal 1.7-12.0 [facility] Comment on above: Performed By: #### C BC #### [facility] [address] [place] [address] Dr. Beny Flaherty NEUT # 7.4 103/ul Critically high 1.4-6.5 [facility] Comment on above: Performed By: #### C BC #### [facility] [address] [place] [address] Dr. Beny Flaherty Neutrophils/100 WBC (Bld) 64.4 % Normal 43.0-75.0 [facility] Comment on above: Performed By: #### C BC #### [facility] [address] [place] [address] Dr. Beny Flaherty Platelet mean volume (Bld) [Entitic vol] 9.8 fL Normal 9.5-13.5 [facility] Comment on above: Performed By: #### C BC #### [facility] [address] [place] [address] Dr. Beny Flaherty PLT 428 103/ul Normal 150-450 [facility] Comment on above: Performed By: #### C BC #### [facility] [address] [place] [address] Dr. Beny Flaherty RBC 5.05 106/ul Normal 4.20-5.40 [facility] Comment on above: Performed By: #### C BC #### [facility] [address] [place] [address] Dr. Beny Flaherty WBC 11.5 103/ul Critically high 4.0-11.0 [facility] Comment on above: Performed By: #### C BC #### [facility] [address] [place] [address] STROKE HEAD WOon 08-01-19 CT STROKE HEAD WO EXAMINATION: CT STRO KE HEAD WO HISTORY: Pain. History of seizures. COMPARISON: MRI of the brain on 11/30/2020. TECHNIQUE: CT examination of the head without IV contrast. Dose reduction techniques were achieved by using automated exposure control and/or adjustment of mA and/or kV according to patient size and/or use of iterative reconstruction technique. FINDINGS: The berg-white matter differentiation is preserved. There is a focal area of lobulated hyperdensity in the left aspect of the central mary, only seen on axial view. This is most probably related to artifactual rather than a true pathology. There is no acute intracranial hemorrhage or mass effect. No extra-axial fluid is evident. The ventricles, basilar cisterns are patent. The globes and orbits appear unremarkable. No acute abnormalities of the calvarium. The paranasal sinuses, mastoid air cells are clear. No gross abnormalities of the visualized soft tissue. IMPRESSION: No acute intracranial findings. Lobulated hyperdensity in the brainstem is likely related to artifactual since it was only seen on axial view. Given the patient's history of seizure, if indicated, this can be further evaluated with MRI. Electronically authenticated by: JUDITH BALLESTEROS Date: 2021-07-31 12:39 Normal [facility] LACTATE/LACTIC ACIDon 2021 Lactate [Moles/Vol] 1.7 mmol/L Normal 0.4-2.0 [facility] Comment on above: Performed By: #### C VDTBH #### [facility] [address] [place] [address] Dr. Beny Flaherty LIPASEon 07-31-2021 Lipase [Catalytic activity/Vol] 124.0 U/L Normal 73.0-393.0 [facility] Comment on above: Performed By: #### T SH, CMP, CMADM, LIPA #### [facility] [address] [place] [address] Dr. Beny Flaherty PH VENOUS BLOODon 07-31-2021 PCO2 VENOUS 52.8 mmHg Critically high 40.0-52.0 [facility] Comment on above: Performed By: #### P HVEN #### [facility] [address] [place] [address] Dr. Beny Flaherty pH VENOUS 7.339 Normal 7.330-7.430 [facility] Comment on above: Performed By: #### P HVEN #### [facility] [address] [place] [address] Dr. Beny Flaherty POINT OF CARE GLUCOSEon 07-08 Glucose [Mass/Vol] 111 mg/dL Critically high 74-106 [facility] Comment on above: Performed By: #### C VDTBH #### [facility] [address] [place] [address] Dr. Beny Flaherty PROF 14(COMP METB)on 022 Albumin [Mass/Vol] 3.4 g/dL Normal 3.4-5.0 [facility] Comment on above: Performed By: #### T SH, CMP, CMADM, LIPA #### [facility] [address] [place] [address] Dr. Beny Flaherty Albumin/Globulin [Mass ratio] 0.8 {ratio} Normal [facility] Comment on above: Performed By: #### T SH, CMP, CMADM, LIPA #### [facility] [address] [place] [address] Dr. Beny Flaherty ALP [Catalytic activity/Vol] 85 U/L Normal 46-116 [facility] Comment on above: Performed By: #### T SH, CMP, CMADM, LIPA #### [facility] [address] [place] [address] Dr. Beny Flaherty ALT [Catalytic activity/Vol] 26 U/L Normal 14-59 [facility] Comment on above: Performed By: #### T SH, CMP, CMADM, LIPA #### [facility] [address] [place] [address] Dr. Beny Flaherty Anion gap [Moles/Vol] 12.4 mmol/L Normal [facility] Comment on above: Performed By: #### T SH, CMP, CMADM, LIPA #### [facility] [address] [place] [address] Dr. Beny Flaherty AST [Catalytic activity/Vol] 15 U/L Normal 15-37 [facility] Comment on above: Performed By: #### T SH, CMP, CMADM, LIPA #### [facility] [address] [place] [address] Dr. Beny Flaherty Bilirubin [Mass/Vol] 0.3 mg/dL Normal 0.2-1.0 [facility] Comment on above: Performed By: #### T SH, CMP, CMADM, LIPA #### [facility] [address] [place] [address] Dr. Beny Flaherty Calcium [Mass/Vol] 8.5 mg/dL Normal 8.5-10.1 [facility] Comment on above: Performed By: #### T SH, CMP, CMADM, LIPA #### [facility] [address] [address] [address] Beny Flaherty Chloride [Moles/Vol] 100 mmol/L Normal 98-107 [facility] Comment on above: Performed By: #### T SH, CMP, CMADM, LIPA #### [facility] [address] [place] [address] Dr. Beny Flaherty CO2 [Moles/Vol] 28.8 mmol/L Normal 21.0-32.0 [facility] Comment on above: Performed By: #### T SH, CMP, CMADM, LIPA #### [facility] [address] [place] [address] Dr. Beny Flaherty Creatinine [Mass/Vol] 0.94 mg/dL Normal 0.55-1.02 [facility] Comment on above: Performed By: #### T SH, CMP, CMADM, LIPA #### [facility] [address] [place] [address] Dr. Beny Flaherty EGFR-AF TUNISIAN >60 Normal >=60 [facility] Comment on above: Performed By: #### T SH, CMP, CMADM, LIPA #### [facility] [address] [place] [address] Dr. Beny Flaherty EGFR-NON AF TUNISIAN >60 Normal >=60 [facility] Comment on above: Performed By: #### T SH, CMP, CMADM, LIPA #### [facility] [address] [place] [address] Dr. Beny Flaherty Globulin (S) [Mass/Vol] 4.5 g/dL Normal [facility] Comment on above: Performed By: #### T SH, CMP, CMADM, LIPA #### [facility] [address] [place] [address] Dr. Beny Flaherty Glucose [Mass/Vol] 113 mg/dL Critically high 74-106 [facility] Comment on above: Performed By: #### T SH, CMP, CMADM, LIPA #### [facility] [address] [address] [address] Beny Flaherty Potassium [Moles/Vol] 4.2 mmol/L Normal 3.5-5.1 [facility] Comment on above: Performed By: #### T SH, CMP, CMADM, LIPA #### [facility] [address] [address] [address] Beny Flaherty Protein [Mass/Vol] 7.9 g/dL Normal 6.1-8.2 [facility] Comment on above: Performed By: #### T SH, CMP, CMADM, LIPA #### [facility] [address] [place] [address] Dr. Beny Flaherty Sodium [Moles/Vol] 137 mmol/L Normal 136-145 [facility] Comment on above: Performed By: #### T SH, CMP, CMADM, LIPA #### [facility] [address] [place] [address] Dr. Beny Flaherty Urea nitrogen [Mass/Vol] 12.0 mg/dL Normal 7.0-18.0 [facility] Comment on above: Performed By: #### T SH, CMP, CMADM, LIPA #### [facility] [address] [place] [address] Dr. Beny Flaherty Urea nitrogen/Creatinine [Mass ratio] 12.8 mg/mg Normal [facility] Comment on above: Performed By: #### T SH, CMP, CMADM, LIPA #### [facility] [address] [place] [address] Dr. Beny Flaherty PROTIMEon 07-31-2021 INR Coag (PPP) [Relative time] 0.97 {INR} Normal [facility] Comment on above: Performed By: #### P HVEN #### [facility] [address] [place] [address] Dr. Beny Flaherty INR GUIDELINES SEE BELOW Normal [facility] Comment on above: Result Comment: CRIS RED INR: 2.0 - 3.0 CONDITIONS NOT LISTED BELOW 2.5 - 3.5 FOR PROSTHETIC HEART VALVE REPLACEMENT 2.5 - 3.5 RECURRENT THROMBOSIS Performed By: #### P HVEN #### [facility] [address] [place] [address] Dr. Beny Flaherty PT Coag (PPP) [Time] 10.5 s Normal 9.0-11.6 [facility] Comment on above: Performed By: #### P HVEN #### [facility] [address] [place] [address] Dr. Beny Flaherty PTTon 07-31-2021 aPTT Coag (Bld) [Time] 29.1 s Normal 22.3-36.2 Th [facility] Comment on above: Performed By: #### P HVEN #### [facility] [address] [place] [address] Dr. Beny Flaherty TSHon 07-31-2021 TSH 4.769 uIU/mL Critically high 0.470-4.680 [facility] Comment on above: Performed By: #### T SH, CMP, CMADM, LIPA #### [facility] [address] [place] [address] Dr. Beny Flaherty TSH RANGE SEE BELOW Normal [facility] Comment on above: Result Comment: <0.3 4 UIU/ml HYPERTHYROID 0.34-5.60 UIU/ml EUTHYROID >5.60 UIU/ml HYPOTHYROID Performed By: #### T SH, CMP, CMADM, LIPA #### [facility] [address] [place] [address] Dr. Beny Flaherty XR CHEST 1 Von 07-31-2021 XR CHEST 1 V EXAMINATION: XR CHES T 1 V HISTORY: Pain COMPARISON: 06/23/2019 TECHNIQUE: AP portable erect FINDINGS: LUNGS: No significant pulmonary parenchymal abnormalities. Low lung volumes VASCULATURE: No increased pulmonary vasculature. PLEURA: No pneumothorax, effusion, or pleural thickening. CARDIAC: No cardiomegaly or cardiac silhouette abnormality. MEDIASTINUM: No visible mass or adenopathy. BONES: No fracture or visible bone lesion. OTHER: Negative. IMPRESSION: Low lung volumes, clear lungs Electronically authenticated by: BRENNEN STUBBS Date: 2021-07-31 08:26 Normal [facility] Auth for Release of Medical Recordson 05-04-2021 Auth for Release of Medical Records [id number]: 127 [facility] Coding Summary.on 01-05-2021 Coding Summary. CD:[id number] Gh0b Ww+PGhlYWQ+RP1MTBUpI79or DWtsA8LX1fTOL6FIETDOPZHU I0ZGX4udKA3OGdaT3XsmsBm SyzbvMBfYD33TFz4JBA9cUew JOssoH1pbMStA0n7NsTwBR01 pY67QPlkBUUjTmF2JoNjngye bWFy V8gxMkWcyKPhLeg+PHRhYmxl IHdpZHRoPScxMDAlJyBzdHls OJ2qNi8lHXJfFREacUyznGLe OiBj n7hvCZEgARgbSF1piOgkN8Je oIZ8KRKzi2u6Gx62cUS+PHRk UPH4eQckKWpdk145XmOdj7hw IDM3 tMIyLHkjYYZ3K27wf4F0SKWa URMxAIE1iWT4oU5mdCfztbhn J9XojSRtAhS6CMT9hKIyuT8c bGln azohnN0wTxw+L37HIB6SFDAZ LF3AVgn9I5ReUaolaVG+PC90 UWLvWT26xIXdiJBuj5rdwZm5 JzEw XBIwJBL3qBhcKSjcd8TdWTEp K99jzHPjw6U3WEGruFzztAAa ZyXbiWQ1rD2qYReutmcli2vo dzsn Kjkda2tfbw17oL27C11eZBuw ISPwURG6YKQdAIHsgNfyte8b iC0xPc9+SGgef0zek0gymOg6 IjIw XOPijkIogFnwSQY6x2HvKu32 Y7ZpgGlsv0SoIsv3vb88kPDc y2T5mOD3MHyiRNLdfB8cMMmb ZnQ6 AFYqOnPwfU14wTRhWSetGf5r gRevfWngSO9rDJZiiaynFYLx lD5cBSLwsUFlkIkuAA4jXYEh bjtm m178QpViMQK5YKQjnTUzP5Yi bU6sAnRcBLRvGRCqV7ClbAOp EFpyA020MAasTrI7CZQbadAm Y2Fs YHRogKfgTgD2b5Y6Dn7Tr9Xn bkrcTLU2IAzwSJI1XkZgXxHs LhD4W2CfMzj5XNCdkSapUI1s J3Bh URLcxoeqngohqHP1KWNmELLb eZ25uTVcQFikDd2io8M2l504 ODOaVQAdxP92Jf5wdNvuDCMz dCBU oS5iykymd1wujbwpGmCnXFHb SOw0VQk1DBBftOorHlGgDDE9 KiA1UBX2rECuyJ1dgXqogbmq dG9w Oyc+U20icQ9sOLS3YGX7kmyi FIDmibSiIS66ZV29I9PhJrpi dGFibGU+ZJDuzcSpxGwqXK8n YmFj x8pna4PgMRucU7ZyUKCvTWhq Sen7QMPwTOD4kDX0nF2yEJYd ZJnfd4S2xYH9X2GuinLbvg3w b2xs JVUgQBpgO84faMAqn3R7OVAc eNL0RNTjjJuvBdRueT16Ijm+ ULLddZdbd4YfWyztd6yfp7vd dGg9 NdGwPRBlbeFlbUivBHJ0f2Yo Lt49C41mANihQNRvQXGlVFGp NYZreHjghn3foL9yUj9+PGNv bCB3 fEX8vN5rCELuGmH9KGptN716 LaRxePRsOrfpf4efl8oxqSz3 YaGtUQWglwGbqFjiMYG6w3Jf Lz48 E34iLRmsWKKgPJIdRQQhMNCl cQkrnh1wsT3kDk2+ER0xs4sc na46rH79cHS+RVSyONT2lTug PSdw UQTqfD3pELvqGtX8NXKsJgZr oQ53gJEgYFqeLk3icAtcfMxo KM8mEQXmkudbc306ThLcn5ap IDEw lTVsPDbjFTP6Y88tx5U9VCRm EGWmMPR4bMH0nN0nqErcxslm bGVmdDsgdmVydGljYWwtYWxp Z246 IHRvcDsnPlBhdGllbnQgTmFt CBt9S8FaRki5QUCbwKjaCM8h jBGbWDexHb9uxYeqnYaeUP6y NTBp eymyt773BjDaj4imMDPhrJZb ZSiiWIH5T17qr0I6OSFfEHKc RPV5lUI2aY5dsJjypbiniSUy dDsg keIodRnrHXhoRYjcR131EALo gLlqHaKmlrYkIOWeoNX3BU49 ZF26jWVnf0C0cZX9X5OrSWNn bmct vctyhPR3LBFoRYXdsC08Yc7s kBgbOm4vLFMsVIM9NZRpnMZi R3BazU3zZhCpXWFjXTLaD9Zs eHQt IJxzN668VXaiYqJ3SUCxvbSe C3SmOONpqPelDjQ4h3S3Be6D Z7C6TF79YO17lVFbs2O6eDX8 J3Bh VHCseudcdrmluFT2BDHwZRSf jW97Av3fwCigVm4mERRpOWU3 XABvqYOaZ7LwtO5qAqXcJIHi MDAw S4VmnCSmVKptF728BTusLmY8 CTRwrjAdO4QnIKThuKvvGkL3 c1I1Vu2UVRc3UV73WC13eHAp c3R5 mCF0C8FfACVhwifrmtrwvTS7 BWHkWGBwdM56Lw3rzBptTm5i VPMtMQI3AXVefTToL4MklE4l OiAj NDMaVJZlJ2PvvNJmFDvfJ619 TEejAyE3YQDflsOgN8HuLDAe iNeeOmN1t0O6Ye3MEEVxXM86 IFR5 hZW9TQ94AC29A9JqPfkzbWKy bGU+PHRhYmxlIHdpZHRoPScx ENIsVnIyoFnpZL1bLo6iJRUu LWNv yVrfjIDlWrJdw1obAHEbSNrx FG8ckIpcU9MzmVK3JIYwl1g0 Cx04P83oD8IzoDV+PGNvbCB3 aWR0 aZ1fVtUuFgY9KShhQ193SwQq iMDcPcmek2weg1hveLi7RxX9 NFTsdcBcbNvmYKA7j6FmRu76 Y29s IHdpZHRoPSIxNSUiIHZhbGln qx4kvP6jQv4+RBLciIA2mLC3 vP6qIeTwTdW4BXuwF469VyVb cCIv Agyho7vxc3yezQz5YqDeSFDe ymIjwBonNWP5q0YpQr84F7Nc sNgrq9QwLwk8yo82iEGoo0T0 bGU9 U7HfEOHkneoxlQDdyEvfJN1q CQVfpmxvBPWkrH0aGAWlU2u0 ArKlLlL5CWbgH3XgexG4SODn cHQg OWsiWLJ3P78ao1X2XYQvZXHo LFC7jEK6lB2leFwhovmkxVMi kWlqxxXerLxaSBlgTYcwP984 IHRv sWwhXZAxeG4tBLNymSIijGrz ZG3pFMGcorsxAkFXJCNOVRap VEFSQTwvdGQ+UHGyLJL1jTqr PSdw QHVyqM3eSJPgV3l6KyItYnI9 JAvkH0BzXVOrbdwfNt49yR9n ZlVwYcX5FXcpU9AkqvL0YXCh cHQg RUrwODJ4O53cf7O4RBJkTGYi BNY9vYY3pQ4fhGsroenckFCh jLjnuqAgyEjpUTkxEZlvG275 IHRv wVnaQmSyHiGsXfD8GiK5K0Tu Khg7OOTnvXsrKI9yvPKvOXeu Ll5xbYrktFleXQ3sWLDyluju YWRk xE9oCNCugOEriHssUA8pZDMa rlvyr837SfCmJQQ9DRXwxEPr N8AlsH6vNoHdGBHjFBZoR4Yr eHQt JEgfV791RTybXdY2PDGewjTv Q5IwCXMqyPtaHdW9z3I8Ht95 NSBZZWFyczwvdGQ+PHRkIHN0 eWxl MQjiTLAoiR7gTBVvP1w8WpSh TkN3POgrE0SeZGUdgwlnIu00 aG3lRfNfGbI6YYwaY2WrwhR7 IDEw fTNhNByuIUW3C83ob2Q8FKQw QHGyEIY0pJV3bK4kyRxyyuts bGVmdDsgdmVydGljYWwtYWxp Z246 IHRvcDsnPkZlbWFsZTwvdGQ+ EFRrDXS5bOymIGcbMBErcX1l QIKvN9p1XoFbXzV7SBmdN3Po ZGRp quuvMd91fT2qKvVxMtU6PAzc G2AtvdE1PKPljWBhMXhjAZR0 W80sd9E9HHWcTMPeTMU1wHU4 dC1h bGlnbjogbGVmdDsgdmVydGlj ZPqaMKavV760STFqtEjtEgCu ZLOlNL8cmRittFS+LY76sd10 L3Rh NbwcFuj7MBOrUGF4cRQ2uV2t GJAyIIqbt4Z7fWZ4T3DyyzVp cy8jq1hfPJPhITvnA08fwJNn c2U7 LOTzlKF6QYVnpFfyIiQkuE45 Oyc+KIUtrPhjj2KrRduky4yz i5ovdCm3VkOgQWFdhyAalUau PSJ0 t9WnFm23S02aOVkeAVBuBRXs IHZcEOXegHyevf5bfK0jAz4+ KEAseEI8vJJ1mF0qOxSxIbK2 YWxp N200IkOtjJXxWdino7oqu2sc vWi9TyIjKSOlivDgeEudVOB9 k6EgIm49I7WzrDiso5EfDhs7 cj48 qSFcw8J5pJC0V1HdLEXxgcgx eAZatDbgWI0rUWRxifgmHQBk fM2lILIeC0g1VmHmIkQ5DLce O2Zv vhV6ULFjgYBtMRDcpNDMyK6g ndkau2sfqreeCuKjQTMeZSp0 IOs8UNRflDocFaAbHGT9QbH8 ZXJ0 lSOlcD0vqEbhjsexrK0dYcu+ HEf5s3brnECcSR8fkNC8VU65 YW10eXKnd0H0pBQ5C7IvLFDa bmct kgbapND6JWRzIOZmfO68Sn8p rZwtCb7gMCZiAZI1OEOuqURm K6OmaR6mAtYtHNBkUKHxP2Gt eHQt ZWyxA721ZWscKyW4SVVnnjFs D3YkPDUyyNewWjV4c7L7Tu2Z QC36BP51KO55rVXlf1V5fIW6 J3Bh JCGemkfhrvkwyEZ8QZWxUINn fZ36Fx3atXehJx0uSLVfAXO6 QQHjiEDmW2KkvK0sJtUyYYJj MDAw O7JgfUJoDWcaW225BYizKkW1 BPTaxgQyF6SaBVVjtOdgDgM6 t0J7At4WDe18BT06MB05uEEp c3R5 nLH7P7HmDLMrkxrqleysnKJ5 AQMiFYJybI92Ou1npWagZp8t ERPpPKX0KHPaiCTrE2UzgI6g OiAj RXZkJKPzN5SyrMMqIYbuM580 TKsvHkM1BWErswZeD6FkYRTs jTrkBtA2v3W2Xw2VFYbglti4 L3Rk PjwvdHI+CS39YOFmCB17sSWt qYHom1okfGj2NrGiHZCaOKT0 aAvqDOotg1QtSRGxW94onNZg c2U6 IGNv (more content not included)... Normal [facility] Discharge Instructionson Discharge Instructions [id number] :[address] [facility] Auto Diffon 01-04-2021 Basophils/100 WBC (Bld) 0.8 % Normal 0.0-2.0 [facility] Comment on above: Order Comment: Order Added by Discern Expert. Performed By: #### 2 358275, 1327064, [id number], [id number] #### [facility] [address] [place] [address] Basophils/Leukocytes Auto (Bld) [Pure # fraction] 0.1 E9/L Normal 0.0-0.[address] [facility] Comment on above: Order Comment: Order Added by Discern Expert. Performed By: #### 2 974324, 7523024, [id number], [id number] #### [facility] [address] [place] [address] Eosinophils/100 WBC (Bld) 3.0 % Normal 0.0-8.[address] [facility] Comment on above: Order Comment: Order Added by Discern Expert. Performed By: #### 2 677108, 7533148, [id number], 1244613 #### [facility] [address] [place] [address] Eosinophils/Leukocytes Auto (Bld) [Pure # fraction] 0.3 E9/L Normal 0.0-0.[address] [facility] Comment on above: Order Comment: Order Added by Discern Expert. Performed By: #### 2 966397, 3294234, [id number], [id number] #### [facility] [address] [place] [address] Lymphocytes/100 WBC (Bld) 29.9 % Normal 14.0-50.[address] [facility] Comment on above: Order Comment: Order Added by Discern Expert. Performed By: #### 2 624571, 7833353, 39943483, 7352194 #### [facility] [address] [place] [address] Lymphocytes/Leukocytes Auto (Bld) [Pure # fraction] 3.3 E9/L Normal 1.0-4.[address] [facility] Comment on above: Order Comment: Order Added by Noelle Expert. Performed By: #### 2 985072, 0306024, [id number], 2969668 #### [facility] [address] [place] [address] Monocytes/100 WBC (Bld) 7.0 % Normal 4.0-14.0 [facility] Comment on above: Order Comment: Order Added by Noelle Expert. Performed By: #### 2 340952, 5312996, 63085245, [id number] #### [facility] [address] [place] [address] Monocytes/Leukocytes Auto (Bld) [Pure # fraction] 0.8 E9/L Normal 0.2-1.[address] [facility] Comment on above: Order Comment: Order Added by Discern Expert. Performed By: #### 2 542532, 8000273, 00561218, 9489615 #### [facility] [address] [place] [address] Neutrophils/100 WBC (Bld) 59.3 % Normal 36.0-75.[address] [facility] Comment on above: Order Comment: Order Added by Noelle Expert. Performed By: #### 2 209785, 2533231, 07113423, 5250945 #### [facility] [address] [place] [address] Neutrophils/Leukocytes Auto (Bld) [Pure # fraction] 6.6 E9/L Normal 2.0-7.[address] [facility] Comment on above: Order Comment: Order Added by Discern Expert. Performed By: #### 2 841283, 1223950, 76623134, 6942443 #### [facility] [address] [place] [address] BMPon 01-04-2021 Creatinine [Mass/Vol] 0.9 mg/dL Normal 0.5-1.3 [facility] Comment on above: Performed By: #### 2 893844, 1558614, 56543482, 1683794 #### [facility] [address] [place] [address] Urea nitrogen [Mass/Vol] 12 mg/dL Normal 5-[address] [facility] Comment on above: Performed By: #### 2 844233, 1940441, 56686112, 7484431 #### [facility] [address] [place] [address] Urea nitrogen/Creatinine [Mass ratio] 13 No Units Normal 10-[address] [facility] Comment on above: Performed By: #### 2 106328, 3782175, 64206399, 9033963 #### [facility] [address] [place] [address] Anion gap [Moles/Vol] 14 mmol/L Normal 6-16 [facility] Comment on above: Performed By: #### 2 297728, 0798109, 21923484, 9332719 #### [facility] [address] [place] [address] Calcium [Mass/Vol] 9.4 mg/dL Normal 8.9-11.[address] [facility] Comment on above: Performed By: #### 2 344190, 9561087, 55202101, 6969750 #### [facility] [address] [place] [address] Chloride [Moles/Vol] 101 mmol/L Normal 101-111 [facility] Comment on above: Performed By: #### 2 961856, 8714618, 04788575, 7399370 #### [facility] [address] [place] [address] CO2 [Moles/Vol] 24 mmol/L Normal 21-[address] [facility] Comment on above: Performed By: #### 2 248548, 5692344, 50878414, 1741001 #### [facility] [address] [place] [address] Glucose [Mass/Vol] 80 mg/dL Normal 55-[address] [facility] Comment on above: Result Comment: If t his glucose result represents a fasting glucose, interpretation should refer to the following reference range: 55-99 mg/dL Performed By: #### 2 031047, 9914519, 13219844, 7750671 #### [facility] [address] [place] [address] Potassium [Moles/Vol] 4.0 mmol/L Normal 3.5-5.3 [facility] Comment on above: Performed By: #### 2 064849, 8413920, 82175781, 8756386 #### [facility] [address] [place] [address] Sodium [Moles/Vol] 135 mmol/L Normal 135-[address] [facility] Comment on above: Performed By: #### 2 823758, 3440082, 44016970, 1304711 #### [facility] [address] [place] [address] CBC w/ Auto Diffon 1 Erythrocyte distribution width (RBC) [Ratio] 15.0 % High 10.9-14.[address] [facility] Comment on above: Performed By: #### 2 981607, 1835017, 14116805, 1142411 #### [facility] [address] [place] [address] Hematocrit (Bld) [Volume fraction] 43.3 % Normal 34.0-46.[address] [facility] Comment on above: Performed By: #### 2 713306, 9507522, 83361494, 9271848 #### [facility] [address] [place] [address] Hemoglobin (Bld) [Mass/Vol] 14.2 g/dL Normal 12.0-16.[address] [facility] Comment on above: Performed By: #### 2 832382, 2863494, 17576404, 0613462 #### [facility] [address] [place] [address] MCH (RBC) [Entitic mass] 28.3 pg Normal 27.0-34.[address] [facility] Comment on above: Performed By: #### 2 431648, 6270683, 39318796, 3053705 #### [facility] [address] [place] [address] MCHC (RBC) [Mass/Vol] 32.7 g/dL Normal 31.4-36.0 [facility] Comment on above: Performed By: #### 2 513403, 0169653, 70109778, 5944758 #### [facility] [address] [place] [address] MCV (RBC) [Entitic vol] 86.6 fL Normal 80.0-100.0 [facility] Comment on above: Performed By: #### 2 015889, 4692910, 64876189, 3460043 #### [facility] [address] [place] [address] Platelet mean volume (Bld) [Entitic vol] 8.8 fL Normal 6.4-10.[address] [facility] Comment on above: Performed By: #### 2 555325, 8520804, 60329155, 4541840 #### [facility] [address] [place] [address] Platelets (Bld) [#/Vol] 369.0 E9/L Normal 150.0-500.[address] [facility] Comment on above: Performed By: #### 2 068616, 1900023, 46098460, 4810342 #### [facility] [address] [place] [address] RBC (Bld) [#/Vol] 5.0 E12/L Normal 4.3-5.[address] [facility] Comment on above: Performed By: #### 2 622716, 9058862, 51886619, 3383648 #### [facility] [address] [place] [address] WBC corrected for nucl RBC Auto (Bld) [#/Vol] 11.1 E9/L High 4.0-11.[address] [facility] Comment on above: Performed By: #### 2 533998, 2009923, 20653411, 4626397 #### [facility] [address] [place] [address] Consent for Treatmenton 12-08 Consent for Treatment [id number] :[address] [facility] ED Clinical Summaryon 2020 ED Clinical Summary (Inserted Image. Bonny ble to display) [address] [address] ED Clinical Summary Person Information Name: GERARDO POWELL/[facility] Age: 45 Years : 1975 Sex: Female Language: Syriac PCP: Jose Kirk MD Marital Status: Visit Id: Visit Reason: Seizure - Recurrent; seizure Speciality: Acuity: 2 Enc Type: Emergency Med Service: Emergency Arrival: 01/04/2021 15:31:10 Discharge: 01/04/2021 17:47:07 LOS: 000 02:16 Checkin: 01/04/2021 15:31:10 Checkout: 01/04/2021 17:47:07 Dispo Type: Home (Routine DC) EVENTS: Event Name Event Status Request Date/Time Start Date/Time Complete Date/Time Arrive Complete 01/04/2021 15:31:10 01/04/2021 15:31:10 01/04/2021 15:31:10 Document Home Meds Request 01/04/2021 15:31:10 Triage Complete 01/04/2021 15:31:10 01/04/2021 15:40:26 01/04/2021 15:40:26 Bed Assign Complete 01/04/2021 15:33:12 01/04/2021 15:33:12 01/04/2021 15:33:12 Dr Exam Complete 01/04/2021 15:33:12 01/04/2021 15:58:44 01/04/2021 15:58:44 RN Exam Complete 01/04/2021 15:33:12 01/04/2021 15:51:36 01/04/2021 15:51:36 Registration Complete 01/04/2021 15:58:44 01/04/2021 16:09:11 01/04/2021 16:09:11 Pending Labs Complete 01/04/2021 16:08:38 01/04/2021 16:08:38 01/04/2021 16:08:39 Reg Complete Request 01/04/2021 16:09:11 Reg Bed Request Complete 01/04/2021 16:09:11 01/04/2021 16:09:11 01/04/2021 16:09:11 Pending Labs Complete 01/04/2021 16:16:37 01/04/2021 16:44:19 Lab Complete 01/04/2021 16:16:37 01/04/2021 16:44:19 Meds Admin Complete 01/04/2021 16:16:37 01/04/2021 16:38:41 Pending Labs Complete 01/04/2021 16:31:02 01/04/2021 16:31:02 01/04/2021 16:44:20 Lab Complete 01/04/2021 16:31:02 01/04/2021 16:31:02 01/04/2021 16:44:20 Pending Labs Complete 01/04/2021 16:37:25 01/04/2021 16:37:25 01/04/2021 16:37:30 Lab Complete 01/04/2021 16:37:25 01/04/2021 16:37:25 01/04/2021 16:37:30 Pending Labs Complete 01/04/2021 16:38:30 01/04/2021 16:38:30 01/04/2021 16:38:30 Pending Labs Complete 01/04/2021 16:39:15 01/04/2021 16:39:15 01/04/2021 16:39:16 Discharge Complete 01/04/2021 17:26:47 01/04/2021 17:47:14 01/04/2021 17:47:14 Transfer Complete 01/04/2021 17:47:14 01/04/2021 17:47:14 01/04/2021 17:47:14 ADDRESS: [address] [place] [id number] PHYS DOC NOTES: MEDICAL INFORMATION: Prescriptions Given: New Medications Printed Prescriptions lorazepam (Ativan 0.5 mg Tab) 1 Tablets By Mouth 2 times a day. Refills: 0. PATIENT EDUCATION INFORMATION: Instructions: Non-Epileptic Seizures, Adult Follow up: With: Address: When: Talib Lucas [address] [place] [address] Business (1) In 1 day 01/05/2021 Comments: As scheduled With: Address: When: Jose Kirk In 3 days DIAGNOSIS: 1:Psychogenic nonepileptic seizure; 2:Generalized headache Normal [facility] ED Note-Physicianon 01-05-20 ED Note-Physician Basic Information Time Seen: Bryan Salgado MD 01/04/2021 15:58 Chief Complaint Pt's spouse reports seizures intermittently for last 5 weeks. On ativan 3x/day for seizures. Reports she has been unresponsive since aorund 1215 today. Sees neuro, had MRI done and outpatient testing, supposed to f/u next week with neuro. Glucose 76 History of Present Illness 45-year-old female with a history of recurrent seizures over the past 5 weeks. Currently undergoing a evaluation to include MRI and ambulatory EEG. She is scheduled to see Dr. Crain next week. She has been taking Ativan 3 times a day for seizure control. Her last Ativan was about noon today. She states she has a continuous headache over the past several weeks. There is a family history of migraine headaches. She states this morning she had a normal appetite. She denies any associated vomiting with the headaches. She has had a previous hysterectomy. She is on medication for thyroid. Review of Systems A 10 point review of systems is negative except as noted above. Medical and Surgical History: Reviewed and noted Social history: Lives at home Tobacco: Denies Physical Exam Vitals & Measurements T: 36.6 ?C (Axillary) HR: 90(Peripheral) RR: 18 BP: 119/76 SpO2: 99% HT: 167.64 cm HT: 167.6 cm WT: 107 kg WT: 107.0 kg BMI: 38.07 This is an overweight 45-year-old female she is laying supine with her eyes closed. Initially she would not answer my questions verbally. I explained to the patient that if she could not answer my questions we would have to put a tube in the bladder and tube in the stomach. Within about 30 seconds she opened her eyes and began talking with me. Skull is atraumatic. Pupils are round and equal. Extraocular muscles are conjugate and full. Neck is supple. There is no facial asymmetry. The patient's motor strength both upper and lower extremities is intact strong and symmetric. Breath sounds are equal left and right there is no respiratory guarding. The abdomen is obese soft and nontender. Medical Decision Making I discussed the case with Dr. Crain the neurologist. He reviewed her MRI and ambulatory EEG results. He states that these events are nonepileptic seizures. He will discuss the next step in therapy with the family tomorrow at the office. He feels that we should begin removing the Ativan as therapy. The patient is currently on 1 mg doses. states she normally takes no more than 2 a day. We will renew 15 tablets but reduce the strength to a half a milligram. Patient did indicate that the medication that we gave for the headache helped considerably. Assessment/Plan 1. 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 Generalized headache (R51.9: Headache, unspecified) Orders: diphenhydrAMINE, 25 mg = 0.5 mL, Injection, IV, Once, Stop date 01/04/21 16:16:00 EDT, STAT, Start date 01/04/21 16:16:00 EDT, 01/04/21 16:16:00 EDT ketorolac, 30 mg = 1 mL, Injection, IV, Once, Stop date 01/04/21 16:16:00 EDT, STAT, Start date 01/04/21 16:16:00 EDT, 01/04/21 16:16:00 EDT lorazepam, 0.5 mg = 1 tab(s), Oral, BID, # 10 tab(s), Refills(s) 0 metoclopramide, 10 mg = 2 mL, Injection, IV Push, Once, Stop date 01/04/21 16:16:00 EDT, STAT, Start date 01/04/21 16:16:00 EDT, 01/04/21 16:16:00 EDT Automated Diff Basic Metabolic Panel CBC w/ Auto Diff eGFR Extra Blue Tube Extra Lav Micro Tube Extra Lav Tube Medications Administered Given diphenhydrAMINE 50 mg/mL Inj, 25 mg, IV ketorolac 30 mg/mL Inj 1 mL, 30 mg, IV metoclopramide 5 mg/mL Inj, 10 mg, IV Push Disposition Plan Patient Discharge Condition Stable Discharge Disposition Home Discharge Prescription List Prescriptions Ativan 0.5 mg Tab, 0.5 mg= 1 tab(s), Oral, BID Follow-up With When Contact Information Talib Lucas In 1 day 01/05/[address], [place], [place] [id number] (1) Additional Instructions: As scheduled Jose Kirk In 3 days Additional Instructions: Patient Education Non-Epileptic Seizures, Adult Problem List/Past Medical History Ongoing Smoker Historical No qualifying data Medications Inpatient No active inpatient medications Home Ativan 0.5 mg Tab, 0.5 mg= 1 tab(s), Oral, BID Allergies No Known Medication Allergies Lab Results WBC: 11.1 E9/L High (01/04/21 16:25:00) RBC: 5 E12/L (01/04/21 16:25:00) HGB: 14.2 gm/dL (01/04/21 16:25:00) Hct: 43.3 % (01/04/21 16:25:00) MCV: 86.6 fL (01/04/21 16:25:00) MCH: 28.3 pg (01/04/21 16:25:00) MCHC: 32.7 gm/dL (01/04/21 16:25:00) RDW: 15 % High (01/04/21 16:25:00) Platelet: 369 E9/L (01/04/21 16:25:00) MPV: 8.8 fL (01/04/21 16:25:00) Neutro Auto: 59.3 % (01/04/21 16:25:00) Lymph Auto: 29.9 % (01/04/21 16:25:00) [place] Auto: 7 % (01/04/21 16:25:00) Eos Auto: 3 % (01/04/21 16:25:00) Basophil Auto: 0.8 % (01/04/21 16:25:00) Neutro Absolute: 6.6 E9/L (01/04/21 16:25:00) Lymph Absolute: 3.3 E9/L (01/04/21 16:25:00) (more content not included)... [facility] Comment on above: Result Comment: Elec tronically Signed By: Damian JOHNSON, Bryan\.br\Date and Time Signed: 01/04/21 17:31 EDT ED Patient Education Noteon 01-04-2021 ED Patient Education Note Mental and Behavioral Health Non-Epileptic Seizures, Adult A seizure can cause: ? Involuntary movements, like falling or shaking. ? Changes in awareness or consciousness. ? Convulsions. These are episodes of uncontrollable, jerking movement caused by sudden, intense tightening (contraction) of the muscles. Epileptic seizures are caused by abnormal electrical activity in the brain. Non-epileptic seizures are different. They are not caused by abnormal electrical signals in your brain. These seizures may look like epileptic seizures, but they are not caused by epilepsy. There are two types of non-epileptic seizures: ? Physiologic non-epileptic seizure. This type results from an underlying problem that causes a disruption in your brain?s electrical activity. ? Psychogenic non-epileptic seizure. This type results from emotional stress. These seizures are sometimes called pseudoseizures. What are the causes? Causes of physiologic non-epileptic seizures can include: ? Sudden drop in blood pressure. ? Low blood sugar (glucose). ? Low levels of salt (sodium) in your blood. ? Low levels of calcium in your blood. ? Migraine. ? Heart rhythm problems. ? Sleep disorders, such as narcolepsy. ? Movement disorders, such as Tourette syndrome. ? Infection. ? Certain medicines. ? Drug and alcohol abuse. ? Fever. Common causes of psychogenic non-epileptic seizures can include: ? Stress. ? Emotional trauma. ? Sexual or physical abuse. ? Major life events, such as divorce or of a loved one. ? Mental health disorders, including anxiety and depression. What are the signs or symptoms? Symptoms of a non-epileptic seizure can be similar to those of an epileptic seizure, which may include: ? A change in attention or behavior (altered mental status). ? Loss of consciousness or fainting. ? Convulsions with rhythmic jerking movements. ? Drooling. ? Rapid eye movements. ? Grunting. ? Loss of bladder control and bowel control. ? Bitter taste in the mouth. ? Tongue biting. Some people experience unusual sensations (aura) before having a seizure. These can include: ? Butterflies in the stomach. ? Abnormal smells or tastes. ? A feeling of having had a new experience before (d?j? vu). After a non-epileptic seizure, you may have a headache or sore muscles or feel confused and sleepy. Non-epileptic seizures usually: ? Do not cause physical injuries. ? Start slowly. ? Include crying or shrieking. ? Last longer than 2 minutes. ? Include pelvic thrusting. How is this diagnosed? Non-epileptic seizures may be diagnosed by: ? Your medical history. ? A physical exam. ? Your symptoms. ? Your health care provider may want to talk with your friends or relatives who have seen you have a seizure. ? If possible, it is helpful if you write down your seizure activity, including what led up to the seizure, and share that information with your health care provider. You may also need to have tests to look for causes of physiologic non-epileptic seizures. These may include: ? An electroencephalogram (EEG). This test measures electrical activity in your brain. If you have had a non-epileptic seizure, the results of your EEG will likely be normal. ? Video EEG. This test takes place in the hospital over the course of 2?7 days. The test uses a video camera and an EEG to monitor your symptoms and the electrical activity in your brain. ? Blood tests. ? Lumbar puncture. This test involves pulling fluid from your spine to check for infection. ? Electrocardiogram (ECG or EKG). This test checks for an abnormal heart rhythm. ? CT scan. If your health care provider thinks you have had a psychogenic non-epileptic seizure, you may need to see a mental health specialist for an evaluation. How is this treated? The treatment for your seizures will depend on what is causing them. When the underlying condition is treated, your seizures should stop. If your seizures are being caused by emotional trauma or stress, your health care provider may recommend that you see a mental health professional. Treatment may include: ? Relaxation therapy or cognitive behavioral therapy. ? Medicines to treat depression or anxiety. ? Individual or family counseling. In some cases, you may have psychogenic seizures in addition to epileptic seizures. If this is the case, you may be prescribed medicine to help with the epileptic seizures. Follow these instructions at home: Home care will depend on the type of non-epileptic seizures that you have. In general: ? Follow all instructions from your health care provider. These may include ways to prevent seizures and what to do if you have a seizure. ? Take kogd-bgq-bcbysoe and prescription medicines only as told by your health care provider. ? Keep all follow-up visits as told by your health care provider. This is important. (more content not included)... Normal [facility] ED Patient Summaryon 021 ED Patient Summary (Inserted Image. Bonny ble to display) [address] [address] Patient Discharge Instructions Person Information Name: GERARDO POWELL Age: 45 Years Arrival Date: 01/04/2021 15:31:10 Discharge Diagnosis: 1:Psychogenic nonepileptic seizure; 2:Generalized headache Primary Care Physician: Jose Kirk MD Provider Information Primary Provider: Bryan Salgado MD Advanced Strategy Specialist:None The exam and treatment you received in the Emergency Department were for an urgent problem and are not intended as complete care. It is important that you follow up with a doctor, nurse practitioner, or physician?s special education assistant for ongoing care. If your symptoms become worse or you do not improve as expected and you are unable to reach your usual health care provider, you should return to the Emergency Department. We are available 24 hours a day. GERARDO POWELL has been given the following list of patient education materials, prescriptions and follow-up instructions: Follow-up Instructions: With: Address: When: Talib Lucas [address], [place] [address] Business (1) In 1 day 01/05/2021 Comments: As scheduled With: Address: When: Jose Kirk In 3 days In the event that this physician does not participate in your insurance network, please consult with your insurance company to find a nearby participating provider. Patient Education Materials: Non-Epileptic Seizures, Adult A MESSAGE TO ALL PATIENTS REGARDING OPIOIDS PRESCRIPTION OPIOIDS: WHAT YOU NEED TO KNOW Prescription opioids can be used to help relieve jejzpsqa-gh-jzpgjr pain and are often prescribed following a surgery or injury, or for certain health conditions. These medications can be an important part of the treatment but also come with serious risks. It is important to work with your healthcare provider to make sure you are getting the safest, most effective care. WHAT ARE THE RISKS AND SIDE EFFECTS OF OPIOID USE? Prescription opioids carry serious risks of addiction and overdose, especially with prolonged use. An opioid overdose, often marked by slowed breathing, can cause sudden . The use of prescription opioids can have a number of side effects as well, even when taken as directed: ? Tolerance?meaning you might need to take more of the medication for the same pain relief ? Physical dependence?meaning you have symptoms of withdrawal when a medication is stopped ? Increased sensitivity to pain ? Constipation ? Nausea, vomiting, and dry mouth ? Sleepiness and dizziness ? Confusion ? Depression ? Low levels of testosterone that can result in lower sex drive, energy, and strength ? Itching and sweating RISKS ARE GREATER WITH: ? History of drug misuse, substance use disorder, or overdose ? Mental health conditions (such as depression or anxiety) ? Sleep apnea ? Older age (65 years and older) ? Avoid alcohol while taking prescription opioids. Also, unless specifically advised by your health care provider, medications to avoid include: ? Benzodiazepines (such as Xanax or Valium) ? Muscle relaxants (such as Soma or Flexeril) ? Hypnotics (such as Ambien or Lunesta) ? Other prescription opioids KNOW YOUR OPTIONS Talk to your health care provider about ways to manage your pain that don?t involve prescription opioids. Some of these options may actually work better and have fewer risks and side effects. Options may include: ? Pain relievers such as acetaminophen, ibuprofen, and naproxen ? Some medication that are also used for depression or seizures ? Physical therapy and exercise ? Cognitive behavioral therapy, a psychological, goal-directed approach, in which patients learn how to modify physical, behavioral, and emotional triggers of pain and stress. IF YOU ARE PRESCRIBED OPIOIDS FOR PAIN: ? Never take opioids in greater amounts or more often than prescribed. ? Follow up with your primary health care provider. o Work together to create a plan on how to manage your pain. o Talk about ways to help manage your pain that don?t involve prescription opioids. o Talk about any and all concerns and side effects. ? Help prevent misuse and abuse o Never sell or share prescription opioids. o Never use another person?s prescription opioids. ? Store prescription opioids in a secure place and out of reach of others (this may include visitors, children, friends, and family). ? Safely dispose of unused prescription opioids: Find your community drug take-back program or your pharmacy mail-back program, or flush them down the toilet, following guidance from the Food and Drug Administration (www.fda.gov/Drugs/Resou rcesForYou). ? Visit www.cdc.gov/drugoverdose to learn about the risks of opioids abuse and overdose. ? If you believe you may be struggling with addiction, tell your health healthcare business analyst and (more content not included)... Normal [facility] eGFRon 01-04-2021 GFR/1.73 sq M.predicted among blacks MDRD (S/P/Bld) [Vol rate/Area] mL/min/{1.73_m2} Normal >=[address] [facility] Comment on above: Order Comment: Order added by Discern Expert. Result Comment: eGFR is race adjusted. AA=. Performed By: #### 2 [id number], [id number] #### [facility] [address] [place] [address] GFR/1.73 sq M.predicted among non-blacks MDRD (S/P/Bld) [Vol rate/Area] mL/min/{1.73_m2} Normal >=[address] [facility] Comment on above: Order Comment: Order added by Discern Expert. Result Comment: [employer] Installer maryam kidney disease could be indicated at eGFR's of less than 60 mL/min/1.73m2. Kidney failure is indicated at less than 15 mL/min/1.73m2. Performed By: #### 2 [id number] #### [facility] [address] [id number] CBC AUTO DIFFon 01-02-2021 BASO # 0.1 103/ul Normal 0.0-0.1 [facility] Comment on above: Performed By: #### C BC #### [facility] [address] [place] [address] Dr. Beny Flaherty Basophils/100 WBC (Bld) 0.5 % Normal 0.2-2.0 [facility] Comment on above: Performed By: #### C BC #### [facility] [address] [place] [address] Dr. Beny Flaherty EO # 0.3 103/ul Normal 0.0-0.7 [facility] Comment on above: Performed By: #### C BC #### [facility] [address] [place] [address] Dr. Beny Flaherty Eosinophils/100 WBC (Bld) 2.9 % Normal 0.9-7.0 [facility] Comment on above: Performed By: #### C BC #### [facility] [address] [place] [address] Dr. Beny Flaherty Erythrocyte distribution width (RBC) [Ratio] 14.7 % Normal 11.0-15.0 [facility] Comment on above: Performed By: #### C BC #### [facility] [address] [place] [address] Dr. Beny Flaherty Hematocrit (Bld) [Volume fraction] 43.2 % Normal 36.0-48.0 [facility] Comment on above: Performed By: #### C BC #### [facility] [address] [place] [address] Dr. Beny Flaherty Hemoglobin (Bld) [Mass/Vol] 13.6 g/dL Normal 12.0-16.0 [facility] Comment on above: Performed By: #### C BC #### [facility] [address] [place] [address] Dr. Beny Flaherty IG # 0.03 10e3/ul Normal 0.00-0.03 [facility] Comment on above: Performed By: #### C BC #### [facility] [address] [place] [address] Dr. Beny Flaherty IG % 0.3 % Normal 0.0-0.5 [facility] Comment on above: Performed By: #### C BC #### [facility] [address] [place] [address] Dr. Beny Flaherty LYMPH # 3.2 103/ul Normal 1.2-3.8 [facility] Comment on above: Performed By: #### C BC #### [facility] [address] [place] [address] Dr. Beny Flaherty Lymphocytes/100 WBC (Bld) 29.2 % Normal 20.5-60.0 [facility] Comment on above: Performed By: #### C BC #### [facility] [address] [place] [address] Dr. Beny Flaherty MANUAL DIFF REQ NO Normal [facility] Comment on above: Performed By: #### C BC #### [facility] [address] [place] [address] Dr. Beny Flaherty MCH (RBC) [Entitic mass] 28.5 pg Normal 26.7-34.0 [facility] Comment on above: Performed By: #### C BC #### [facility] [address] [place] [address] Dr. Beny Flaherty MCHC (RBC) [Mass/Vol] 31.5 g/dL Normal 29.9-35.2 [facility] Comment on above: Performed By: #### C BC #### [facility] [address] [place] [address] Dr. Beny Flaherty MCV (RBC) [Entitic vol] 90.4 fL Normal 81.0-99.0 [facility] Comment on above: Performed By: #### C BC #### [facility] [address] [place] [address] Dr. Beny Flaherty MONO # 0.9 103/ul Critically high 0.3-0.8 [facility] Comment on above: Performed By: #### C BC #### [facility] [address] [place] [address] Dr. Beny Flaherty Monocytes/100 WBC (Bld) 7.9 % Normal 1.7-12.0 [facility] Comment on above: Performed By: #### C BC #### [facility] [address] [place] [address] Dr. Beny Flaherty NEUT # 6.5 103/ul Normal 1.4-6.5 [facility] Comment on above: Performed By: #### C BC #### [facility] [address] [place] [address] Dr. Beny Flaherty Neutrophils/100 WBC (Bld) 59.2 % Normal 43.0-75.0 [facility] Comment on above: Performed By: #### C BC #### [facility] [address] [place] [address] Dr. Beny Flaherty Platelet mean volume (Bld) [Entitic vol] 10.1 fL Normal 9.5-13.5 [facility] Comment on above: Performed By: #### C BC #### [facility] [address] [place] [address] Dr. Beny Flaherty PLT 355 103/ul Normal 150-450 [facility] Comment on above: Performed By: #### C BC #### [facility] [address] [place] [address] Dr. Beny Flaherty RBC 4.78 106/ul Normal 4.20-5.40 [facility] Comment on above: Performed By: #### C BC #### [facility] [address] [place] [address] Dr. Beny Flaherty WBC 11.0 103/ul Normal 4.0-11.0 [facility] Comment on above: Performed By: #### C BC #### [facility] [address] [place] [address] Dr. Beny Flaherty MAGNESIUMon 01-02-2021 Magnesium [Mass/Vol] 2.0 mg/dL Normal 1.6-2.3 [facility] Comment on above: Performed By: #### P HVEN #### [facility] [address] [place] [address] Dr. Beny Flaherty PROF CHEM 8 (BAS METB)on Anion gap [Moles/Vol] 8.9 mmol/L Normal [facility] Comment on above: Performed By: #### P HVEN #### [facility] [address] [place] [address] Dr. Beny Flaherty Calcium [Mass/Vol] 9.1 mg/dL Normal 8.4-10.2 [facility] Comment on above: Performed By: #### P HVEN #### [facility] [address] [place] [address] Dr. Beny Flaherty Chloride [Moles/Vol] 103 mmol/L Normal 98-107 [facility] Comment on above: Performed By: #### P HVEN #### [facility] [address] [place] [address] Dr. Beny Flaherty CO2 [Moles/Vol] 28.2 mmol/L Normal 22.0-30.0 [facility] Comment on above: Performed By: #### P HVEN #### [facility] [address] [place] [address] Dr. Beny Flaherty Creatinine [Mass/Vol] 1.06 mg/dL Critically high 0.52-1.04 [facility] Comment on above: Performed By: #### P HVEN #### [facility] [address] [place] [address] Dr. Beny Flaherty EGFR-AF TUNISIAN >60 Normal >=60 [facility] Comment on above: Performed By: #### P HVEN #### [facility] [address] [place] [address] Dr. Beyn Flaherty EGFR-NON AF TUNISIAN 56 mL/min/1.73m2 Critically low >=60 [facility] Comment on above: Performed By: #### P HVEN #### [facility] [address] [place] [address] Dr. Beny Flaherty Glucose [Mass/Vol] 85 mg/dL Normal 74-106 [facility] Comment on above: Performed By: #### P HVEN #### [facility] [address] [place] [address] Dr. Beny Flaherty Potassium [Moles/Vol] 4.1 mmol/L Normal 3.4-5.0 [facility] Comment on above: Performed By: #### P HVEN #### [facility] [address] [address] [address] Beny Flaherty Sodium [Moles/Vol] 136 mmol/L Critically low 137-145 [facility] Comment on above: Performed By: #### P HVEN #### [facility] [address] [place] [address] Dr. Beny Flaherty Urea nitrogen [Mass/Vol] 10.0 mg/dL Normal 7.0-17.0 [facility] Comment on above: Performed By: #### P HVEN #### [facility] [address] [place] [address] Dr. Beny Flaherty Urea nitrogen/Creatinine [Mass ratio] 9.4 mg/mg Normal [facility] Comment on above: Performed By: #### P HVEN #### [facility] [address] [place] [address] Dr. Beny Flaherty Auth for Release of Medical Recordson 12-22-2020 Auth for Release of Medical Records [id number]: [address] [facility] PROF CHEM 8 (BAS METB)on Anion gap [Moles/Vol] 11.9 mmol/L Normal [facility] Comment on above: Performed By: #### B MP #### [facility] [address] [place] [address] Toribio Joan Calcium [Mass/Vol] 9.4 mg/dL Normal 8.4-10.2 [facility] Comment on above: Performed By: #### B MP #### [facility] [address] [place] [address] Toribio Joan Chloride [Moles/Vol] 105 mmol/L Normal 98-107 [facility] Comment on above: Performed By: #### B MP #### [facility] [address] [id number] Toribio Joan CO2 [Moles/Vol] 27.5 mmol/L Normal 22.0-30.0 [facility] Comment on above: Performed By: #### B MP #### [facility] [address] [address] Toribio Joan Creatinine [Mass/Vol] 1.00 mg/dL Normal 0.52-1.04 [facility] Comment on above: Performed By: #### B MP #### [facility] [address] [place] [address] Toribio Joan EGFR-AF TUNISIAN >60 Normal >=60 [facility] Comment on above: Performed By: #### B MP #### [facility] [address] [place] [address] Toribio Joan EGFR-NON AF TUNISIAN =60 Normal >=60 [facility] Comment on above: Performed By: #### B MP #### [facility] [address] [place] [address] Toribio Joan Glucose [Mass/Vol] 88 mg/dL Normal 74-106 [facility] Comment on above: Performed By: #### B MP #### [facility] [address] [place] [address] Toribio Joan Potassium [Moles/Vol] 4.4 mmol/L Normal 3.4-5.0 [facility] Comment on above: Performed By: #### B MP #### [facility] [address] [place] [address] Toribio Joan Sodium [Moles/Vol] 140 mmol/L Normal 137-145 [facility] Comment on above: Performed By: #### B MP #### [facility] [address] [place], [place] [id number] Toribio Joan Urea nitrogen [Mass/Vol] 20.0 mg/dL Critically high 7.0-17.0 [facility] Comment on above: Performed By: #### B MP #### [facility] [address] [id number] Toribio Franco Urea nitrogen/Creatinine [Mass ratio] 20.0 mg/mg Normal [facility] Comment on above: Performed By: #### B MP #### [facility] [address] [place] [address] Toribio Franco MRI BRAIN WO W CONon 021 MRI BRAIN WO W CON EXAMINATION: MRI BRA IN WO W CON HISTORY: Generalized epilepsy , new onset seizure activity with dizziness and migraine headaches COMPARISON: No relevant comparison available. TECHNIQUE: A variety of imaging planes and parameters were utilized for visualization of suspected pathology. Images were performed without and with Dotarem contrast. FINDINGS: CEREBRUM: No edema, hemorrhage, mass, acute infarction, or inappropriate atrophy. CEREBELLUM: No edema, hemorrhage, mass, acute infarction, or inappropriate atrophy. BRAINSTEM: No edema, hemorrhage, mass, acute infarction, or inappropriate atrophy. CSF SPACES: Ventricles, cisterns, and sulci are appropriate for age. No hydrocephalus, subarachnoid hemorrhage, or mass. SKULL: No mass or other significant visible lesion. SINUSES: Limited views demonstrate no significant mucosal thickening or fluid. ORBITS: Limited views are unremarkable. OTHER: No abnormal meningeal or parenchymal enhancement. IMPRESSION: 1. Normal MRI of the brain. No suspicious findings to account the patient's symptoms. Electronically authenticated by: LUCILLE CARTER Date: 2020-12-01 07:49 Normal [facility] CBC AUTO DIFFon 11-20-2020 BASO # 0.1 103/ul Normal 0.0-0.1 [facility] Comment on above: Performed By: #### P HVEN #### [facility] [address] [place] [address] Dr. Beny Flaherty Basophils/100 WBC (Bld) 0.5 % Normal 0.2-2.0 [facility] Comment on above: Performed By: #### P HVEN #### [facility] [address] [place] [address] Dr. Beny Flaherty EO # 0.4 103/ul Normal 0.0-0.7 [facility] Comment on above: Performed By: #### P HVEN #### [facility] [address] [address] [address] Beny Flaherty Eosinophils/100 WBC (Bld) 2.7 % Normal 0.9-7.0 [facility] Comment on above: Performed By: #### P HVEN #### [facility] [address] [place] [address] Dr. Beny Flaherty Erythrocyte distribution width (RBC) [Ratio] 15.4 % Critically high 11.0-15.0 [facility] Comment on above: Performed By: #### P HVEN #### [facility] [address] [place] [address] Dr. Beny Flaherty Hematocrit (Bld) [Volume fraction] 41.6 % Normal 36.0-48.0 [facility] Comment on above: Performed By: #### P HVEN #### [facility] [address] [place] [address] Dr. Beny Flaherty Hemoglobin (Bld) [Mass/Vol] 13.2 g/dL Normal 12.0-16.0 [facility] Comment on above: Performed By: #### P HVEN #### [facility] [address] [place] [address] Dr. Beny Flaherty IG # 0.07 10e3/ul Critically high 0.00-0.03 [facility] Comment on above: Performed By: #### P HVEN #### [facility] [address] [place] [address] Dr. Beny Flaherty IG % 0.5 % Normal 0.0-0.5 [facility] Comment on above: Performed By: #### P HVEN #### [facility] [address] [place] [address] Dr. Beny Flaherty LYMPH # 3.3 103/ul Normal 1.2-3.8 [facility] Comment on above: Performed By: #### P HVEN #### [facility] [address] [place] [address] Dr. Beny Flaherty Lymphocytes/100 WBC (Bld) 24.9 % Normal 20.5-60.0 [facility] Comment on above: Performed By: #### P HVEN #### [facility] [address] [address] [address] Beny Flaherty MANUAL DIFF REQ NO Normal [facility] Comment on above: Performed By: #### P HVEN #### [facility] [address] [place] [address] Dr. Beny Flaherty MCH (RBC) [Entitic mass] 28.1 pg Normal 26.7-34.0 [facility] Comment on above: Performed By: #### P HVEN #### [facility] [address] [address] [address] Beny Flaherty MCHC (RBC) [Mass/Vol] 31.7 g/dL Normal 29.9-35.2 [facility] Comment on above: Performed By: #### P HVEN #### [facility] [address] [place] [address] Dr. Beny Flaherty MCV (RBC) [Entitic vol] 88.7 fL Normal 81.0-99.0 [facility] Comment on above: Performed By: #### P HVEN #### [facility] [address] [place] [address] Dr. Beny Flaherty MONO # 0.8 103/ul Normal 0.3-0.8 [facility] Comment on above: Performed By: #### P HVEN #### [facility] [address] [place] [address] Dr. Beny Flaherty Monocytes/100 WBC (Bld) 6.0 % Normal 1.7-12.0 [facility] Comment on above: Performed By: #### P HVEN #### [facility] [address] [place] [address] Dr. Beny Flaherty NEUT # 8.7 103/ul Critically high 1.4-6.5 [facility] Comment on above: Performed By: #### P HVEN #### [facility] [address] [place] [address] Dr. Beny Flaherty Neutrophils/100 WBC (Bld) 65.4 % Normal 43.0-75.0 [facility] Comment on above: Performed By: #### P HVEN #### [facility] [address] [address] [address] Beny Flaherty Platelet mean volume (Bld) [Entitic vol] 10.6 fL Normal 9.5-13.5 [facility] Comment on above: Performed By: #### P HVEN #### [facility] [address] [address] [address] Beny Flaherty PLT 367 103/ul Normal 150-450 [facility] Comment on above: Performed By: #### P HVEN #### [facility] [address] [place] [address] Dr. Beny Flaherty RBC 4.69 106/ul Normal 4.20-5.40 [facility] Comment on above: Performed By: #### P HVEN #### [facility] [address] [place] [address] Dr. Beny Flaherty WBC 13.3 103/ul Critically high 4.0-11.0 [facility] Comment on above: Performed By: #### P HVEN #### [facility] [address] [place] [address] Dr. Beny Flaherty LACTATE/LACTIC ACIDon 2020 Lactate [Moles/Vol] 1.2 mmol/L Normal 0.7-2.0 [facility] Comment on above: Performed By: #### P HVEN #### [facility] [address] [place] [address] Dr. Beny Flaherty PROF CHEM 8 (BAS METB)on Anion gap [Moles/Vol] 14.6 mmol/L Normal [facility] Comment on above: Performed By: #### P HVEN #### [facility] [address] [place] [address] Dr. Beny Flaherty Calcium [Mass/Vol] 9.1 mg/dL Normal 8.4-10.2 [facility] Comment on above: Performed By: #### P HVEN #### [facility] [address] [place] [address] Dr. Beny Flaherty Chloride [Moles/Vol] 104 mmol/L Normal 98-107 [facility] Comment on above: Performed By: #### P HVEN #### [facility] [address] [address] [address] Beny Flaherty CO2 [Moles/Vol] 27.7 mmol/L Normal 22.0-30.0 [facility] Comment on above: Performed By: #### P HVEN #### [facility] [address] [address] [address] Beny Flaherty Creatinine [Mass/Vol] 0.95 mg/dL Normal 0.52-1.04 [facility] Comment on above: Performed By: #### P HVEN #### [facility] [address] [address] [address] Beny Flaherty EGFR-AF TUNISIAN >60 Normal >=60 [facility] Comment on above: Performed By: #### P HVEN #### [facility] [address] [place] [address] Dr. Beny Flaherty EGFR-NON AF TUNISIAN >60 Normal >=60 [facility] Comment on above: Performed By: #### P HVEN #### [facility] [address] [address] [address] Beny Flaherty Glucose [Mass/Vol] 88 mg/dL Normal 74-106 [facility] Comment on above: Performed By: #### P HVEN #### [facility] [address] [address] [address] Beny Flaherty Potassium [Moles/Vol] 4.3 mmol/L Normal 3.4-5.0 [facility] Comment on above: Performed By: #### P HVEN #### [facility] [address] [address] [address] Beny Flaherty Sodium [Moles/Vol] 142 mmol/L Normal 137-145 [facility] Comment on above: Performed By: #### P HVEN #### [facility] [address] [address] [address] Beny Flaherty Urea nitrogen [Mass/Vol] 17.0 mg/dL Normal 7.0-17.0 [facility] Comment on above: Performed By: #### P HVEN #### [facility] [address] [address] [address] Beny Flaherty Urea nitrogen/Creatinine [Mass ratio] 17.9 mg/mg Normal [facility] Comment on above: Performed By: #### P HVEN #### [facility] [address] [address] [address] Beny Flaherty Provider Orderson 01-25-2017 Provider Orders [id number] [id number] Normal [facility] Vital Signs Date Time Vital Sign Value Performing Clinician Facility 04-09-2023 11:00-0500 Body height 162.56 cm Charlene Soriano Other [facility] Other 04-09-2023 11:00-0500 Body mass index (BMI) [Ratio] 38.69 kg/m2 Charlene Soriano Other [facility] Other 04-09-2023 11:00-0500 Body temperature 97.2 [degF] Charlene Soriano Other [facility] Other 04-09-2023 11:00-0500 Body weight 102.24 kg Charlene Soriano Other [facility] Other 04-09-2023 11:00-0500 Diastolic blood pressure 82 mm[Hg] Charlene Soriano Other [facility] Other 04-09-2023 11:00-0500 SaO2% (BldA) [Mass fraction] 97 % Charlene Soriano Other [facility] Other 04-09-2023 11:00-0500 Systolic blood pressure 118 mm[Hg] Charlene Soriano Other [facility] Other 03-29-2023 17:26-0500 Heart rate 91 /min DO Charlene Soriano Work Phone: [facility] 03-29-2023 17:26-0500 Respiratory rate 18 /min DO Charlene Soriano Work Phone: [facility] 03-29-2023 17:26-0500 SaO2% (BldA) [Mass fraction] 100 % DO Charlene Soriano Work Phone: [facility] 03-29-2023 16:07-0500 Body temperature 97.8 [degF] DO Charlene Soriano Work Phone: [facility] 03-29-2023 16:07-0500 Diastolic blood pressure 82 mm[Hg] DO Charlene Soriano Work Phone: [facility] 03-29-2023 16:07-0500 Systolic blood pressure 163 mm[Hg] DO Charlene Soriano Work Phone: [facility] 03-29-2023 15:32-0500 Body height 162.56 cm DO Charlene Soriano Work Phone: [facility] 03-29-2023 15:32-0500 Body weight 99.79 kg DO Charlene Soriano Work Phone: [facility] 03-25-2023 22:45-0500 Body temperature 96.1 [degF] DO Charlene Soriano Work Phone: [facility] 03-25-2023 22:45-0500 Diastolic blood pressure 54 mm[Hg] DO Charlene Soriano Work Phone: [facility] 03-25-2023 22:45-0500 Heart rate 66 /min DO Charlene Soriano Work Phone: [facility] 03-25-2023 22:45-0500 Respiratory rate 18 /min DO Charlene Soriano Work Phone: [facility] 03-25-2023 22:45-0500 SaO2% (BldA) [Mass fraction] 98 % DO Charlene Soriano Work Phone: [facility] 03-25-2023 22:45-0500 Systolic blood pressure 116 mm[Hg] DO Charlene Soriano Work Phone: [facility] 03-25-2023 21:07-0500 Body height 162.56 cm DO Charlene Soriano Work Phone: [facility] 03-25-2023 21:07-0500 Body weight 99.79 kg DO Charlene Soriano Work Phone: [facility] 03-16-2023 22:43-0500 Body height 162.56 cm DO Charlene Soriano Work Phone: [facility] 03-16-2023 22:43-0500 Body temperature 97.9 [degF] DO Charlene Soriano Work Phone: [facility] 03-16-2023 22:43-0500 Body weight 103.7 kg DO Charlene Soriano Work Phone: [facility] 03-16-2023 22:43-0500 Diastolic blood pressure 56 mm[Hg] DO Charlene Soriano Work Phone: [facility] 03-16-2023 22:43-0500 Heart rate 77 /min DO Charlene Soriano Work Phone: [facility] 03-16-2023 22:43-0500 Respiratory rate 18 /min DO Charlene Soriano Work Phone: [facility] 03-16-2023 22:43-0500 SaO2% (BldA) [Mass fraction] 97 % DO Charlene Sroiano Work Phone: [facility] 03-16-2023 22:43-0500 Systolic blood pressure 122 mm[Hg] DO Charlene Soriano Work Phone: [facility] 03-16-2023 11:20-0500 Body height 162.56 cm Karly Roberts Other [facility] Other 03-16-2023 11:20-0500 Body mass index (BMI) [Ratio] 39.48 kg/m2 Karly Roberts Other [facility] Other 03-16-2023 11:20-0500 Body temperature 98.2 [degF] Karly Roberts Other [facility] Other 03-16-2023 11:20-0500 Body weight 104.33 kg Karly Roberts Other [facility] Other 03-16-2023 11:20-0500 Diastolic blood pressure 80 mm[Hg] Karly Roberts Other [facility] Other 03-16-2023 11:20-0500 Respiratory rate 18 /min Karly Roberts Other [facility] Other 03-16-2023 11:20-0500 SaO2% (BldA) [Mass fraction] 97 % Karly Roberts Other [facility] Other 03-16-2023 11:20-0500 Systolic blood pressure 113 mm[Hg] Karly Roberts Other [facility] Other 12-17-2022 08:45-0400 Body height 162.56 cm Charlene Soriano Other [facility] Other 12-17-2022 08:45-0400 Body mass index (BMI) [Ratio] 39.72 kg/m2 Charlene Soriano Other [facility] Other 12-17-2022 08:45-0400 Body weight 104.96 kg Charlenemallory Soriano Other [facility] Other 12-17-2022 08:45-0400 Diastolic blood pressure 84 mm[Hg] Charlene Soriano Other [facility] Other 12-17-2022 08:45-0400 Respiratory rate 18 /min Charlene Soriano Other [facility] Other 12-17-2022 08:45-0400 SaO2% (BldA) [Mass fraction] 93 % Charlene Soriano Other [facility] Other 12-17-2022 08:45-0400 Systolic blood pressure 110 mm[Hg] Charlene Soriano Other [facility] Other 11-21-2022 04:00-0400 Diastolic blood pressure 88 mm[Hg] DO Charlene Soriano Work Phone: [facility] 11-21-2022 04:00-0400 Heart rate 78 /min DO Charlene Soriano Work Phone: [facility] 11-21-2022 04:00-0400 Respiratory rate 16 /min DO Charlene Soriano Work Phone: [facility] 11-21-2022 04:00-0400 SaO2% (BldA) [Mass fraction] 98 % DO Charlene Soriano Work Phone: [facility] 11-21-2022 04:00-0400 Systolic blood pressure 127 mm[Hg] DO Charlene Soriano Work Phone: [facility] 11-21-2022 01:34-0400 Body height 170.18 cm DO Charlene Soriano Work Phone: [facility] 11-21-2022 01:34-0400 Body temperature 99.5 [degF] DO Charlene Soriano Work Phone: [facility] 11-21-2022 01:34-0400 Body weight 108.8 kg DO Charlene Soriano Work Phone: [facility] 10-15-2022 10:40-0400 Body height 162.56 cm Ele Blades Other [facility] Other 10-15-2022 10:40-0400 Body mass index (BMI) [Ratio] 39.65 kg/m2 Ele Blades Other [facility] Other 10-15-2022 10:40-0400 Body weight 104.78 kg Ele Blades Other [facility] Other 10-15-2022 10:40-0400 Diastolic blood pressure 70 mm[Hg] Ele Blades Other [facility] Other 10-15-2022 10:40-0400 Systolic blood pressure 110 mm[Hg] Ele Blades Other [facility] Other 06-28-2022 10:00-0400 Body height 162.56 cm Charlene Soriano Other [facility] Other 06-28-2022 10:00-0400 Body mass index (BMI) [Ratio] 40.61 kg/m2 Charlene Soriano Other [facility] Other 06-28-2022 10:00-0400 Body weight 107.32 kg Charlene Soriano Other [facility] Other 06-28-2022 10:00-0400 Diastolic blood pressure 82 mm[Hg] Charlene Soriano Other [facility] Other 06-28-2022 10:00-0400 Respiratory rate 18 /min Charlene Soriano Other [facility] Other 06-28-2022 10:00-0400 SaO2% (BldA) [Mass fraction] 97 % Charlenesonia Soriano Other [facility] Other 06-28-2022 10:00-0400 Systolic blood pressure 126 mm[Hg] Charlene Soriano Other [facility] Other 11-29-2021 08:38-0400 Body temperature 97.59 [degF] Americo Cadet MD Work Phone: [facility] 11-29-2021 08:38-0400 Diastolic blood pressure 92 mm[Hg] Americo Cadet MD Work Phone: [facility] 11-29-2021 08:38-0400 Heart rate 84 /min Americo Cadet MD Work Phone: [facility] [employer] 11-29-2021 08:38-0400 Respiratory rate 16 /min Americo Cadet MD Work Phone: [facility] 11-29-2021 08:38-0400 SaO2% (BldA) [Mass fraction] 95 % Americo Cadet MD Work Phone: [facility] [employer] 11-29-2021 08:38-0400 Systolic blood pressure 129 mm[Hg] Americo Cadet MD Work Phone: [facility] 11-27-2021 14:06-0400 Body height 162.6 cm Americo Cadet MD Work Phone: [facility] 11-27-2021 14:06-0400 Body mass index (BMI) [Ratio] 38.79 kg/m2 Americo Cadet MD Work Phone: [facility] [employer] 11-27-2021 14:06-0400 Body weight 102.51 kg Americo Cadet MD Work Phone: [facility] [employer] Encounters Encounter Date Encounter Type Care Provider Facility Start: 04-15-2023 End: 04-15-2023 ambulatory Charlene Soriaon Other [facility] Other Start: 04-15-2023 Telephone encounter Charlene Soriano [facility] Start: 04-09-2023 End: 04-09-2023 ambulatory Charlene Soriano Other [facility] Other Start: 04-09-2023 Office outpatient vi sit 25 minutes Charlene Soriano [facility] Start: 03-29-2023 End: 03-29-2023 Emergency department patient visit Charlene Soriano Facility:[facility] Start: 03-29-2023 End: 03-29-2023 Emergency department patient visit DO Charlene Christie Work Phone: [facility] Work Phone: Start: 03-26-2023 End: 03-26-2023 ambulatory Charlene Soriano Other [facility] Other Start: 03-26-2023 Telephone encounter Charlene Soriano [facility] [place] Start: 03-25-2023 End: 03-26-2023 Emergency department patient visit Aidan More Facility:[facility] Start: 03-25-2023 End: 03-25-2023 Emergency department patient visit DO Charlene Soriano Work Phone: [facility] Work Phone: Start: 03-17-2023 End: 03-17-2023 Emergency department patient visit Schuyler Lazar Facility:[facility] Start: 03-16-2023 End: 03-16-2023 Emergency department patient visit DO Charlene Soriano Work Phone: [facility] Work Phone: Start: 03-16-2023 End: 03-16-2023 ambulatory Karly Roberts Other [facility] Other Start: 03-16-2023 Office outpatient vi sit 15 minutes Karly Roberts [facility] Start: 12-21-2022 End: 12-21-2022 ambulatory Charlene Soriano Other [facility] Other Start: 12-21-2022 Telephone encounter Charlene Soriano [facility] Start: 12-17-2022 End: 12-17-2022 ambulatory Charlene Soriano Other [facility] Other Start: 12-17-2022 Office outpatient vi sit 25 minutes Charlene Soriano [facility] Start: 12-06-2022 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 Comment on above: Refill Request Start: 11-21-2022 End: 11-21-2022 Emergency department patient visit Aidan Estes Jaymie Facility:[facility] Start: 11-21-2022 End: 11-21-2022 Emergency department patient visit DO Charlene Soriano Work Phone: [facility] Work Phone: Start: 11-07-2022 End: 11-07-2022 ambulatory Charlene Soriano Facility:[facility] Start: 11-07-2022 End: 11-07-2022 ambulatory DO Charlene A Christie Work Phone: [facility] Work Phone: Start: 11-07-2022 End: 11-07-2022 Patient encounter procedure DO Charlene Christie Work Phone: [facility] [address] Work Phone: Start: 10-18-2022 End: 10-18-2022 ambulatory Charlene Christie Other [facility] Other Start: 10-18-2022 Telephone encounter Charlene Soriano [facility] Start: 10-16-2022 End: 10-16-2022 ambulatory Charlene Soriano Other [facility] Other Start: 10-16-2022 Telephone encounter Charlene Soriano [facility] Start: 10-15-2022 Office outpatient ne w 45 minutes Ele Dubose [facility] Start: 10-15-2022 End: 10-15-2022 ambulatory DO Charlene A Christie Work Phone: [facility] Work Phone: Start: 10-15-2022 End: 10-15-2022 Patient encounter procedure DO Charlene Christie Work Phone: [facility] [address] [place] Work Phone: Start: 09-06-2022 End: 09-06-2022 ambulatory Charlene Christie Other [facility] Other Start: 09-06-2022 Telephone encounter Charlene Soriano [facility] [place] Start: 08-21-2022 End: 08-21-2022 ambulatory Charlene Soriano Other [facility] Other Start: 08-21-2022 Telephone encounter Charlenemallory Soriano [facility] Family [facility] Start: 08-08-2022 End: 08-08-2022 ambulatory Charlene Christie Other [facility] Other Start: 08-08-2022 Telephone encounter Charlenemallory Soriano [facility] [place] Start: 07-31-2022 End: 07-31-2022 ambulatory Charlene Mallory Soriano Facility:[facility] Start: 07-31-2022 End: 07-31-2022 ambulatory DO Charlene Mallory Soriano Work Phone: [facility] Work Phone: Start: 07-31-2022 End: 07-31-2022 Patient encounter procedure DO Charlenemallory Soriano Work Phone: [facility] [place] Work Phone: Start: 07-23-2022 End: 07-23-2022 ambulatory Charlene Christie Other [facility] Other Start: 07-23-2022 Telephone encounter Charlenesonia Soriano [facility] [place] Start: 07-13-2022 End: 07-13-2022 ambulatory Charlene Christie Other [facility] Other Start: 07-13-2022 Telephone encounter Charlenemallory Soriano [facility] [place] Start: 07-11-2022 End: 07-11-2022 ambulatory Charlene Mallory Soriano Facility:[facility] Start: 07-11-2022 End: 07-11-2022 Patient encounter procedure DO Charlene Christie Work Phone: [facility] [place] Work Phone: Start: 06-28-2022 End: 06-28-2022 ambulatory Charlene Christie Other [facility] Other Start: 06-28-2022 Office outpatient ne w 45 minutes Charlene Soriano [facility] Start: 05-11-2022 Telephone encounter Leonie BARTON Neurology Comment on above: Returning Patient's Call Medication Authoriza tion (Levothyroxine) Start: 05-10-2022 End: 05-10-2022 ambulatory CHARMAINE TOMLIN Facility:[facility] Start: 05-09-2022 End: 05-09-2022 ambulatory SIN CHRISTIAN Facility:[facility] Start: 05-08-2022 End: 05-10-2022 ambulatory FISH CALDWELL Facility:[facility] Start: 05-08-2022 End: 05-09-2022 ambulatory DIVINA GRIFFIN Facility:[facility] Start: 05-08-2022 End: 05-08-2022 Patient encounter procedure Divina Griffin PA-C Work Phone: Neurology Comment on above: Seizure-like activit y (HCC) (Primary Dx) Start: 03-21-2022 Patient encounter procedure Fish Caldwell MD Work Phone: Neurology Comment on above: Abnormal involuntary movement (Primary Dx) Start: 03-21-2022 Telephone encounter Fish Caldwell MD Work Phone: Neurology Comment on above: Future Appointment ( [place], [place], Any ) Start: 11-27-2021 End: 11-28-2021 ambulatory QUENTIN LARIOS [facility] Start: 11-27-2021 End: 11-29-2021 Evaluation and management of inpatient AMERICO CADET [facility] Start: 11-27-2021 End: 11-27-2021 Subsequent hospital visit by physician Stv Eeg Rm [facility] Comment on above: Arrived Start: 11-27-2021 End: 11-29-2021 Evaluation and management of inpatient Americo Cadet MD Work Phone: [facility] Onc/Med Surg Start: 09-19-2021 End: 09-19-2021 ambulatory JUANJOSE FREY Facility:[facility] Start: 07-31-2021 End: 07-31-[address] DOLORES VALENTIN Facility:[facility] Start: 01-02-2021 End: 01-02-[address] DOLORES VALENTIN Facility:[facility] Start: 12-20-2020 End: 12-20-[address] DOLORES VALENTIN Facility:[facility] Start: 11-30-2020 End: 12-01-2020 ambulatory TALIB LUCAS Facility:[facility] Start: 11-20-2020 End: 11-20-[address] DOLORES VALENTIN Facility:[facility] Start: 01-24-2017 End: 01-24-2017 Ambulatory Kaleysin Xie Facility:[facility] Procedures Date Procedure Procedure Detail Performing Clinician Start: 03-25-2023 CT of head without contrast DO [facility] Work Phone: Start: 07-31-2022 MRI of cervical spin e without contrast DO [facility] Work Phone: Start: 07-31-2022 MRI of head DO [facility] Work Phone: Start: 07-11-2022 X-ray of cervical spine DO [facility] Work Phone: Start: 11-28-2021 EEG VIDEO MONITORING Ka albert Alanis 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 [employer] Work Phone: Start: 11-28-2021 BASIC METABOLIC PANE L W/ REFLEX TO MG FOR LOW K Kita Alanis 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 [employer] Work Phone: Start: 11-28-2021 Blood count complete auto&auto difrntl wbc Kita Alanis 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 [employer] Work Phone: Plan of Treatment Date Care Activity Detail Author Start: 05-08-2025 DIABETES SCREEN DIABETES SCREEN [facility] Start: 03-25-2023 CT of head without contrast CT head/brain wo con [facility] Start: 03-25-2023 CT Unspecified body region WO contrast [facility] Start: 12-07-2022 Influenza vaccination INFLUENZA (#1) [facility] Start: 11-07-2022 Hemolytic complement CH50 level [facility] Start: 10-15-2022 [facility] Start: 07-31-2022 MR Cervical spine WO contrast [facility] Start: 07-31-2022 MRI of cervical spin e without contrast MR cervical spine wo [facility] Start: 07-31-2022 MR Unspecified body region [facility] Start: 07-31-2022 MRI of head MR head/brain wo/w [facility] Start: 04-08-2022 DEPRESSION ASSESSMENT DEPRESSION ASS ESSMENT [facility] Start: 03-22-2022 End: 03-22-2023 SARS-CoV-2 (COVID-19) RNA [Presence] in Respiratory specimen by JEN with probe detection PRE-PROCEDURE & PRE-OPERATIVE COVID Microbiology Routine Abnormal involuntary movement Expected: 03/22/2022, Expires: 03/22/2023 [facility] Work Phone: Comment on above: Expected: 03/22/2022 , Expires: 03/22/2023 Start: 12-26-2021 End: 12-26-2021 Patient encounter procedure 12/26/2021 Office Visit Neurology Americo Cadet MD [address] [place] [address] [facility] Start: 12-07-2021 Influenza vaccination B ON [employer] Start: 2020 COLOGUARD (FIT-DNA) COLOGUARD (FIT-D NA) [facility] Start: 2020 Colonoscopy COLONOSCOPY [facility] Start: 2020 COLORECTAL CANCER SCREENING COLORECTAL CANCER SCREENING [facility] Start: [address] COLONOGRAPHY [facility] Start: 2020 FECAL OCCULT BLOOD FECAL OCCULT BLOO D [facility] Start: 2020 LIPID SCREEN LIPID SCREEN [facility] Start: 2020 Screening for malign ant neoplasm of colon [facility] Start: 2020 SIGMOIDOSCOPY SIGMOIDOSCOPY [facility] Start: 2015 Lipid panel Lipids [facility] Start: 2015 Mammography MAMMOGRAM [facility] Start: 2010 Diabetes screen Diabetes screen [facility] Start: 2005 HPV TESTING HPV TESTING [facility] Start: 2005 Screening for malign ant neoplasm of cervix [facility] Start: 1996 PAP TESTING PAP TESTING [facility] Start: 1996 Screening for malign ant neoplasm of cervix Pap smear [facility] Start: 1994 DTaP/Tdap/Td vaccine (1 - Tdap) DTaP/Tdap/Td vaccine (1 - Tdap) [facility] Start: 1994 Urine microalbumin profile DTAP,TDAP,TD (1 - Tdap) [facility] Start: 1993 ANNUAL 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 TEAM 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 MARYAM DISEASE VISIT ANNUAL PCP TEAM CHRONIC DISEASE VISIT [facility] Start: 1993 Hepatitis C screening Hepatitis C [facility] Start: 1993 HEPATITIS C SCREENING HEPATITIS C [facility] [place] [facility] Start: 1993 HIV SCREENING HIV SCREENING [facility] Start: 1993 SPIROMETRY SPIROMETRY [facility] Start: 1990 HIV screening HIV screen [facility] Start: 1987 Depression Screen Depression Screen [facility] Start: 1981 PNEUMOCOCCAL (1 - PCV) PNEUMOCOCCAL (1 - PCV) [facility] Start: 1975 COVID-19 Vaccine (#1) COVID-19 Vacci ne (#1) [facility] Start: 1975 HEPATITIS B (1 of 3 - 3-dose series) HEPATITIS B (1 of 3 - 3-dose series) [facility] End: 03-22-2023 EPIL EEG LEAD PLACEMENT EPIL EEG LEAD PLACEMENT NEUROLOGY Routine Abnormal involuntary movement 1 Occurrences starting 03/22/2022 until 03/22/2023 [facility] Work Phone: Comment on above: 1 Occurrences starti ng 03/22/2022 until 03/22/2023 EPIL VEEG ADMIT TO EMU/PMU EPIL VEEG ADMIT TO EMU/PMU NEUROLOGY Routine Abnormal involuntary movement Ordered: 03/22/2022 [facility] Work Phone: Comment on above: Ordered: 03/22/2022 Oxygen therapy [[facility]] Initiate Oxygen Therapy Protocol Respiratory Care Routine Daily until discontinued starting 11/27/2021 [facility] Work Phone: Comment on above: Daily until disconti nued starting 11/27/2021 Patient Education [facility] Work Phone: Patient referral [facility] Work Phone: [facility] Immunizations Immunization Date Immunization Notes Care Provider Fa cility NEGATED: Highlighted row has not occurred!06-28-2022 influenza, seasonal, injectable Patient Objection Charlene Soriano Other [facility] Other Payers Date Payer Category Payer Self-pay [id number] 2021 Unknown [employer] PPO OOS [id number] 2021-Present [phone] [address] [place] [address] PPO [id number] 2017 Unknown [id number] 1975 Unknown [id number] 1975 Unknown [id number] [id number] 1975 Unknown [id number] 2.16.840.1.059664.3.579.2.593 1975 Unknown [id number] 2.16.840.1.179598.3.579.2.593 1975 Unknown [id number] 2.16.840.1.946091.3.579.2.593 1975 Unknown [id number] 2.16.840.1.010489.3.579.2.593 1975 Unknown [id number] 2.16.840.1.739336.3.579.2.175 1975 Unknown [id number] 2.16.840.1.022182.3.579.2.175 1959 Unknown [id number] Unknown [id number] 2.16.840.1.751107.3.579.2.531 Unknown [id number] 2.16.840.1.804561.3.579.2.531 Unknown [id number] 2.16.840.1.013374.3.579.2.531 Unknown [id number] 2.16.840.1.448025.3.579.2.531 Unknown [id number] 2.16.840.1.245968.3.579.2.531 Unknown [id number] 2.16.840.1.662357.3.579.2.531 Unknown [id number] 2.16.840.1.424634.3.579.2.531 Unknown [id number] 2.16.840.1.777189.3.579.2.531 Unknown [id number] [id number] Social History Date Type Detail Facility Start: 11-13-2021 End: 03-29-2023 Tobacco smoking status ALIS Never smoked tobacco [employer] Phone: Start: 11-13-2021 End: 05-08-2022 Tobacco use and exposure Smokeless tobacco non-user [employer] Phone: Start: 11-13-2021 End: 05-08-2022 Alcohol intake Lifetime non-drinker (finding) [employer] Phone: Start: 1975 Sex Assigned At Not on file B ON [employer] Phone: Start: 11-17-2021 End: 11-27-2021 Exposure to SARS-CoV-2 (event) Not sure [place] Tobacco smoking status ALIS Tobacco smoking consumption unknown [facility] Start: 05-08-2022 Sex Assigned At N [employer] Other Start: 1975 Sex Assigned At Female F [facility] Start: 05-08-2022 History of Social function [facility] Clinical Notes 11-28-2021 to 04-09-2023 Note Date & Type Note Facility 04-09-2023 Evaluation note Encounter Date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 dyslexia - Febrile Seizures No - Family history of seizures: No - Other relevant systemic disease (example - tumor, autoimmune disorder): No PREVIOUS EVALUATIONS: - EEG ([facility], 11/27/2021-11/28/2021): Normal continuous video- EEG. The event captured did not correlate with electrographic seizure. No epileptiform discharges were identified - CT brain ([facility], 11/18/2020): Normal. No previous MRI Other caregivers: Primary Care Provider: Charmaine Tomlin MD, MD No current facility-administered medications for this visit. No current outpatient medications on file. Facility-Administered Medications Ordered in Other Visits Medication Dose Route Frequency NaCl 0.9% iv flush bag 20 mL INTRAVENOUS PRN acetaminophen 325-650 mg tab(s) (TYLENOL) 325-650 mg ORAL q 4 H PRN LORazepam 2 mg injection (ATIVAN) 2 mg INTRAVENOUS q 5 MIN PRN midazolam (PF) 5 mg injection (VERSED) 5 mg INTRAMUSCULAR q 24 H PRN diphenhydrAMINE 25 mg (BENADRYL) 25 mg ORAL q 8 H PRN albuterol HFA 90 mcg/actuation 2 Puff (PROVENTIL HFA, VENTOLIN HFA) 2 Puff INHALATION q 6 H PRN [START ON 05/09/2022] DULoxetine 60 mg cap(s) (CYMBALTA) 60 mg ORAL DAILY AT 12 PM [START ON 05/09/2022] levothyroxine 137 mcg tab(s) (SYNTHROID) 137 mcg ORAL BEFORE BREAKFAST DAILY rOPINIRole 4 mg tab(s) (REQUIP) 4 mg ORAL AT BEDTIME [START ON 05/09/2022] lamoTRIgine 25 mg tab(s) (LaMICtal) 25 mg ORAL DAILY ALLERGIES Allergen Reactions Aspirin Intolerance Other reaction(s): Tachycardia No past medical history on file. No past surgical history on file. No family history on file. PSYCHOSOCIAL HISTORY: - Living - in [place], [place] with - Driving - does not drive - Work - not currently working, trying to apply for disability - Alcohol - occasionally - Smoking - denies - Drug Use - denies - Mood - reports anxiety and depression, increased recently, does not follow with psychology - Sleep - goes to bed around 4AM and sleeps until 11AM, difficulty staying asleep REVIEW OF SYSTEMS: GENERAL: No weight loss, malaise or fevers HEENT: Endorses frequent headaches, endorses ptosis of left eyelid causing difficulty with vision, endorses episodes of pain behind bilateral ears and hearing either goes out or becomes very loud NECK: Negative for lumps, goiter, pain and significant neck swelling RESPIRATORY: Endorses occasional coughing, wheezing and SOB, history of asthma CARDIOVASCULAR: Endorses occasional chest pain and heart palpitations, Negative for leg swelling, hypertension, CHF GI: No nausea, vomiting, or diarrhea : No history of dysuria, frequency or incontinence MUSCULOSKELETAL: Endorses muscle pain and joint pain everywhere' SKIN: Negative for lesions, rash, and itching PSYCH: Endorses anxiety, depression and difficulty with sleep HEMATOLOGY/LYMPHOLOGY: Endorses easy bruising, Negative for prolonged bleeding NEURO: SEE HPI GENERAL EXAMINATION: HEENT: There are no facial dysmorphic features. Skin: There is no stigmata for neurocutaneous disorders. Neck: The neck is supple. Lungs: The lungs are clear to auscultation. Cardiac: Regular rate and rhythm, no murmurs appreciated Extremities: Normal exam of the extremities. No clubbing, cyanosis, or edema. NEUROLOGIC EXAMINATION Mental Status: Alert and oriented to person, place and time. Able to follow 1 and 2 step commands. Cranial Nerves: Pupils equal and reactive to light, extraocular muscles intact. No nystagmus, face movements symmetric except for drooping of left side of mouth during smile, not noted during speech,slightly appreciated during rest. Motor: Moves all extremities equally. Strength equal in bilateral extremities. Sensation: Intact to light touch on face, upper and lower extremities. Coordination: No dysmetria CLAUDIO intact Gait exam deferred IMPRESSION: Gerardo Powell is a 47 year old right handed female referred by Dr. 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 Reports episode of throwing her head back, her arms were extended straightin front of her body, whole body stifness and shaking with eyes rolled back and retained awareness with inability to respond lasting a few minutes (longest episode 4 minutes) which began in 2019 and have improved with addition of LTG as well as staring spells. Previous evaluations have captured events without EEG change. Low suspicion for epilepsy. Will continue with EMU admission for diagnosis. The patient's compliance with therapy has been: Reasonable DIAGNOSIS SUMMARY Paroxysmal Events (Paroxysmal Non-Epileptic Seizures) PLAN: - Admit to EMU for event characterization and diagnosis - Continue LTG 25mg daily - Follow up after EMU admission with Dr. Caldwell Testing Ordered CBC CMP anticonvulsant level Education The following issues were discussed with the patient on this visit and written instructions provided as below- Seizure precautions and safety, seizure first aide, when to seek emergency care. Patient was advised to not drive until released by a physician. Medical Management Continue current medications. I discussed the risks, benefits and alternatives of the medical plan with the patient. Questions were answered. The patient agreed with the plan as discussed. FOLLOW-UP: No follow-ups on file. I spent a total of 60 minutes on the date of the service which included: preparing to see the patient [id number] patient care completing clinical documentation obtaining and/or reviewing separately obtained history performing a medically appropriate examination counseling and educating the patient/family/caregiver Divina Griffin PA-C cc: Primary Care Physician: Charmaine Tomlin MD, MD [address] [id number] Patient: Ms. Gerardo Powell [address] [place] [address] [facility] NoteHNO ID: [id number] Author: Sin Christian APRN.HEAD OPERATOR SULFIDE Service: ? Author Type: Nurse Practitioner Type: Progress Notes Filed: 03/22/2022 7:14 AM Note Text: [facility] of Records Patient: Gerardo Powell Address: [address] [place] [address] Impression: Review of records for Gerardo Powell, a 47 year old female, being referred by Dr. Americo Cadet [[place], [place]] to [facility] Epileptologist for further evaluation and treatment. Patient has previously diagnosed PNES. EEG from 2021 reported as normal. MRI was not completed. CT brain from 2020 reported as normal. Patient has trialed 2 AEDs. As she is having episodes at least weekly and her workup has been unrevealing to date, VEEG is indicated for event characterization and diagnostic evaluation to determine best treatment options. Summary: Onset: September 2019 Recent Seizure Frequency: 1-2 per week Seizure Description(s) Available: Type A: Rigid muscles, loss of consciousness Duration: 15 minutes Current AED(s): Lamotrigine Previous AED(s): Levetiracetam PMH: headaches, FRITZ, PRIOR EVALUATIONS: [facility] [place], [address] [place] [address] EEG ([facility], 11/27/2021-11/28/2021): Normal continuous video-EEG. The event captured did not correlate with electrographic seizure No epileptiform discharges were identified MRI brain wo/w contrast (NA): CT brain from 11/18/2020 was normal. ANTHONY Recommendations: - Admit to EMU for VEEG monitoring, diagnostic evaluation Location: [facility] [place] - Visit with epileptologist prior to admission - Additional testing to be considered by epilepsy clinicians Signed: Sin Christian APRN.HEAD OPERATOR SULFIDE March 21, [address] Caldwell for review and recommendations. MD Recommendations (as discussed with Dr. Caldwell): - Please proceed with the above plan. Please route this encounter to the EMU Scheduling Pool ( P EMU ) or PMU Scheduling Pool ( P PMU ) through LOS AND Follow up PHASE 1.0 AND 1.5 ORDER SYNOPSIS Patient: Gerardo Powell ([id number]) Best contact number: [phone] Insurance: Payor: SYLVIA / Plan: BLUE CARD PPO OOS / Product Type: PPO / ----- Scheduling Team: Please call for adult patients: Kt Ramsey ([phone]) Ajay Mejia ([phone]) Radha Santana([phone]) Celeste Rodriguez([phone]) Please call for pediatric patients: Ajay Mejia ([phone]) Radha Santana ([phone]) Kt Ramsey ([phone]) Celeste Rodriguez([phone]) ----- 03/21/2022 Admission Type EMU Adult Number of Days requested 4 Location [facility] Admit Priority Routine PURPOSE 03/21/2022 Patient Being Considered for Epilepsy Surgery? No VEEG recommended to assess seizure burden, address new AND concerning syymptom-sign complex, and/or clarify syndromic epilepsy diagnosis? Yes 03/21/2022 Sphenoidal monitoring No Electrode placement Standard Appointments and Tests PRE-PROCEDURE AND PRE-OPERATIVE COVID (AMB COVID PRE-PROCEDURE TESTING PANEL) EPIL EEG LEAD PLACEMENT EPIL VEEG ADMIT TO EMU/PMU Consultations None Please route this encounter to the EMU Scheduling pool ( P EMU ) or PMU Scheduling pool ( P PMU ) through LOS AND Follow up Scheduling coordinators: For all VNS patients being scheduled for SHIRA, please schedule VNS off/on office visits.[facility]12-14-2022 History of Present illness Narrative* Sin Christian APRN.HEAD OPERATOR SULFIDE - 03/21/2022 2:15 PM EST [facility] Review of Records Patient: Gerardo Powell Address: [address] [place] [address] Impression: Review of records for Gerardo Powell, a 47 year old female, being referred by Dr. Americo Cadet [[place], [place]] to Any Epileptologist for further evaluation and treatment. Patient has previously diagnosed PNES. EEG from 2021 reported as normal. MRI was not completed. CT brain from 2020 reported as normal.Patient has trialed 2 AEDs. As she is having episodes at least weekly and her workup has been unrevealing to date, VEEG is indicated for event characterization and diagnostic evaluation to determine best treatment options. Summar y: Onset: September 2019 Recent Seizure Frequency: 1-2 per week Seizure Description(s) Available: Type A: Rigid muscles, loss of consciousness Duration: 15 minutes Current AED(s): Lamotrigine Previous AED(s): Levetiracetam PMH: headaches, FRITZ, PRIOR EVALUATIONS: [facility] [place], [address], [place] [address] EEG ([facility], 11/27/2021-11/28/2021): Normal continuous video-EEG. The event captured did not correlate with electrographic seizure No epileptiform discharges were identified MRI brain wo/w contrast (NA): CT brain from 11/18/2020 was normal. ANTHONY Recommendations: - Admit to EMU for VEEG monitoring, diagnostic evaluation Location: [facility] [place] - Visit with epileptologist prior to admission - Additional testing to be considered by epilepsy clinicians Signed: Sin Christian APRN.HEAD OPERATOR SULFIDE March 21, [address] Caldwell for review and recommendations. MD Recommendations (as discussed with Dr. Caldwell): - Please proceed with the above plan. Please route this encounter to the EMU Scheduling Pool ( P EMU ) or PMU Scheduling Pool ( P PMU ) through LOS & Follow up PHASE 1.0 AND 1.5 ORDER SYNOPSIS Patient: Gerardo Powell ([id number]) Best contact number: [phone] Insurance: Payor: SYLVIA / Plan: BLUE CARD PPO OOS / Product Type: PPO / Scheduling Team: Please call for adult patients: Kt Ramsey ([phone]) Ajay Mejia ([phone]) Radha Santana([phone]) Celeste Rodriguez([phone]) Please call for pediatric patients: Ajay Mejia ([phone]) Radha Santana ([phone]) Kt Ramsey ([phone]) Celeste Rodriguez([phone]) 03/21/2022 Admission Type EMU Adult Number of Days requested 4 Location [facility] Admit Priority Routine PURPOSE 03/21/2022 Patient Being Considered for Epilepsy Surgery? No VEEG recommended to assess seizure burden, address new & concerning syymptom- sign complex, and/or clarify syndromic epilepsy diagnosis? Yes 03/21/2022 Sphenoidal monitoring No Electrode placement Standard Appointments and Tests PRE-PROCEDURE & PRE-OPERATIVE COVID (AMB COVID PRE-PROCEDURE TESTING PANEL) EPIL EEG LEAD PLACEMENT EPIL VEEG ADMIT TO EMU/PMU Consultations None Please route this encounter to the EMU Scheduling pool ( P EMU ) or PMU Scheduling pool ( P PMU ) through LOS & Follow up Scheduling coordinators: For all VNS patients being scheduled for SHIRA, please schedule VNS off/on office visits. documented in this encounterL[facility]12-14-2022 Miscellaneous Notes* Telephone Encounter - Celeste Rodriguez - 03/21/2022 1:23 PM EST OS imaging/records received: March 21, 2022 -EEG Report -CT Brain Report -Consult Notes Care Everywhere * Telephone Encounter - Celeste Rodriguez - 03/21/2022 1:14 PM EST Images from the original note were not included. [facility] Initial Intake Interview March 21, 2022 1:14 PM Caller: Gerardo Relationship to pt: Self Patient name: Gerardo Powell Age: [age] year old Address: [address] [place] [address] (home) Insurance: Payor: ANTHEM / Plan: BLUE CARD PPO OOS / Product Type: PPO / Referred by: Physician: Referring to: Any Reason for Evaluation: further evaluation and treatment Previously evaluated at: [facility] [place], [address] [place] [address] Fax: N/A Age & date of onset of seizures/spells: September 2019 Frequency: 1-2 a week Seizure Type A: rigid muscles, LOC Duration: 15 minutes Seizure Type B: N/A Duration: N/A Recent injuries (within last 6 months)? No Recent surgeries (within the last 6 weeks)? No Seizure medications Current medications: - Lamotrigine Past medications: - Levetiracetam Developmental disabilities? No Previous neurosurgery? No Type & Date: N/A Implants (VNS/NeuroPace/shunt/orthodontic hardware/pacemaker)? No Type & Date: N/A Would patient require anaesthesia or sedation? No Additional pertinent medical information: No other information Test Yes or No Date Facility EEG Yes 2021 [facility] Video EEG Yes 2021 [facility] MRI brain No CT brain Yes 2020 [facility] fMRI brain No PET No Ictal SPECT No SHIRA No Luke No Neuropsych testing No Visual field No Invasive video EEG (brain mapping) No If invasive video-EEG monitoring was performed, request: -- brain maps including any power point presentations -- disks of the study If resection was performed, request: -- operative notes -- surgical pathology reports If patient has had any presurgical or surgical workup, has imaging been requested? No Signed: Celeste Rodriguez * Telephone Encounter - Celeste Rodriguez - 03/21/2022 10:49 AM EST Images from the original note were not included. documented in this encounterLicking [facility]08-24-2022 Hospital Discharge instructions* Discharge Instructions* Kristian Winston MD - 11/29/2021 1:15 PM EDT You were admitted for an elective LTME and found to have stress seizures. Please take Lamictal as prescribed Please engage in stress reducing activity Recommend follow-up with your psychiatrist and psychologist [facility] [employer] Work Phone: [phone]) 576-478308-23-2022 History of Present illness Narrative* Maria Darden RN - 11/28/2021 9:00 PM EDT Moved to room 433 which is nearer the nurses station for easy monitoring if just incase she will have seizure episodes. * Nuvia Bean RN - 11/28/2021 2:40 PM EDT Financial Accountant entered pt's room during hourly rounding at 1400 and witnessed the pt having a seizure. Her was at the bedside. Financial Accountant pressed the red button on her LTME monitoring device to capture the seizure.The monitor read patient event. Pt had a total of 3 seizures within a 30 min time frame Ativan was given per MD orders. Pt BP was WNL but her O2 dropped to 80. She was placed on 4L of O2 via nasal cannula and had an O2 saturation of 98%. At the onset of her seizure her right hand began toshake along with her fingers. Then her eyes began to twitch and her head began to gently shake. Shelet out a moan which sounded like a cry or whimper and then she made a loud gasping noise right before her head dropped. After that her eyes opened and she was tearful. This happened 3 times. Pt has bed fellows in her bed and her call light is within reach. She has a tele-sitter as well to watch her and notify RN of any seizure like activity. Will continue to do hourly rounding. Financial Accountant notified neuro resident of event via secure message system. * Kristian Winston MD - 11/28/2021 7:15 AM EDT [facility] IN-PATIENT SERVICE [facility] Progress note Date: 11/28/2021 Patient name: Gerardo Powell Date of admission: 11/27/2021 1:46 PM Account: [id number] Date of : 1975 PCP: None Provider Room: [address] [place] [address] Code Status: Full Code Chief Complaint: No chief complaint on file. Elective LTME Interval hx: The Patient was seen and examined at bedside Is vitally stable alert oriented x 3. No complains. Eye fluttering and decrease responsiveness reported but no EEG correlation. Normal EEG. Complains Keppra makes her sick, nauseous and depressed. Brief History of Present Illness: The patient is a 46 y.o. Unavailable / unknown female who presents with No chief complaint on file. and she is admitted to the hospital for an elective LTME. PMH Figueroa's palsy 10 years ago, anxiety/depression on Duloxetine and Mirtazapine, hip replacement, obesity, hypothyroidism, RLS on Ropinirole. Follows Neurologist Dr Lucas. 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 CT head 11/2020 unremarkable. MRI brain 11/2020 normal. 48-hour video EEG at [facility] 02/2021 revealed sharp waves in occipital leads during photic stimulation and 2 push button clinical events without EEG changes. S Patient with Hx seizures since 2019, about a month after her hip replacement surgery. The seizures are described as different semiology including episodes of spacing out, episodes of isolated back, shaking in the hands lasting for a few minutes and generalized convulsion. At times, she has shaking in the right upper extremity and numbness which may last for few minutes. These episodes tend to occur almost every other day. The patient has associated facial numbness with these episodes. She describes intermittent tongue biting, no bowel bladder incontinence. [facility] [address] Cadet about 2 weeks ago, started on Lamictal 50mg with titration to 100mg (not taking), while weaning off Keppra. Admitted for elective LTME Past Medical History: No past medical history on file. Past Surgical History: No past surgical history on file. Medications Prior to Admission: Prior to Admission medications Medication Sig Start Date End Date Taking? Authorizing Provider LAMICTAL 25 MG tablet Week 1 and 2: 25 mg/day; Weeks 3 and 4: 50 mg/day; Week 5: 50 mg BID, Week 6:50 mg am and 100 mg HS, Week 7: 100 mg BID 11/16/21 Americo Cadet MD albuterol sulfate HFA (PROVENTIL;VENTOLIN;PROAIR) 108 (90 Base) MCG/ACT inhaler Ventolin HFA 90 mcg/actuation aerosol inhaler Historical Provider, DULoxetine (CYMBALTA) 60 MG extended release capsule Take 60 mg by mouth in the morning and 60 mg before bedtime. Historical Provider, levETIRAcetam (KEPPRA) 1000 MG tablet TAKE 1 TABLET BY MOUTH TWICE A DAY 08/23/21 Historical Provider, levothyroxine (SYNTHROID) 137 MCG tablet Take 137 mcg by mouth in the morning. Historical Provider, rOPINIRole (REQUIP) 4 MG tablet TAKE 1 TABLET BY MOUTH EVERYDAY AT BEDTIME 08/23/21 Historical Provider, Allergies: Patient has no known allergies. Social History: Tobacco: reports that she has never smoked. She has never used smokeless tobacco. Alcohol: reports no history of alcohol use. Drug Use: reports no history of drug use. Family History: No family history on file. Review of Systems: ROS: Constitutional Negative for fever and chills HEENT Negative for ear discharge, ear pain, nosebleed Eyes Negative for photophobia, pain and discharge Respiratory Negative for hemoptysis and sputum Cardiovascular Negative for orthopnea, claudication and PND Gastrointestinal Negative for abdominal pain, diarrhea, blood in stool Musculoskeletal Negative for joint pain, negative for myalgia Neurology Negative for seizures, loss of consciousness Skin Negative for rash or itching Endo/heme/allergies Negative for polydipsia, environmental allergy Psychiatric/behavioral Negative for suicidal ideation. Patient is not anxious Physical Exam: BP 107/72 Pulse 65 Temp 98 F (36.7 C) (Oral) Resp 16 Ht 5' 4 (1.626 m) Wt 226 lb (102.5 kg) SpO2 96% BMI 38.79 kg/m Temp (24hrs), Av F (36.7 C), Min:97.9 F (36.6 C), Max:98.1 F (36.7 C) No results for input(s): POCGLU in the last 72 hours. No intake or output data in the 24 hours ending 11/28/21 0715 NEUROLOGIC EXAMINATION GENERAL Appears comfortable and in no distress HEENT NC/ AT NECK Supple and no bruits heard MENTAL STATUS: Alert, oriented, intact memory, no confusion, normal speech, normal language, no hallucination or delusion CRANIAL NERVES: II - Visual lawson intact to confrontation III,IV, - EOMs full, no afferent defect, no SHAZIA, no ptosis V - Normal facial sensation VII - Normal facial symmetry VIII - Intact hearing IX,X - Symmetrical palate XI - Symmetrical shoulder shrug XII - Midline tongue, no atrophy MOTOR FUNCTION: significant for good strength of grade 5/5 in bilateral proximal and distal muscle groups of both upper and lower extremities with normal bulk, normal tone and no involuntary movements, no tremor SENSORY FUNCTION: Normal touch, normal pin, normal vibration, normal proprioception CEREBELLAR FUNCTION: Intact fine motor control over upper limbs REFLEX FUNCTION: Symmetric, no perverted reflex, no Babinski sign STATION and GAIT Not tested Investigations: Laboratory Testing: Recent Results (from the past 24 hour(s)) Basic Metabolic Panel w/ Reflex to MG Collection Time: 11/28/21 3:30 AM Result Value Ref Range Glucose 89 70 - 99 mg/dL BUN 15 6 - 20 mg/dL Creatinine 0.97 (H) 0.50 - 0.90 mg/dL Calcium 9.0 8.6 - 10.4 mg/dL Sodium 136 135 - 144 mmol/L Potassium 4.3 3.7 - 5.3 mmol/L Chloride 99 98 - 107 mmol/L CO2 27 20 - 31 mmol/L Anion Gap 10 9 - 17 mmol/L GFR Non- >60 >60 mL/min GFR >60 >60 mL/min GFR Comment CBC with Auto Differential Collection Time: 11/28/21 3:30 AM Result Value Ref Range WBC 11.1 3.5 - 11.3 k/uL RBC 4.61 3.95 - 5.11 m/uL Hemoglobin 13.8 11.9 - 15.1 g/dL Hematocrit 41.6 36.3 - 47.1 % MCV 90.2 82.6 - 102.9 fL MCH 29.9 25.2 - 33.5 pg MCHC 33.2 28.4 - 34.8 g/dL RDW 14.1 11.8 - 14.4 % Platelets 389 138 - 453 k/uL MPV 10.2 8.1 - 13.5 fL NRBC Automated 0.0 0.0 per 100 WBC Seg Neutrophils 48 36 - 65 % Lymphocytes 41 24 - 43 % Monocytes 7 3 - 12 % Eosinophils % 3 1 - 4 % Basophils 1 0 - 2 % Immature Granulocytes 0 0 % Segs Absolute 5.38 1.50 - 8.10 k/uL Absolute Lymph # 4.54 (H) 1.10 - 3.70 k/uL Absolute Arenac # 0.77 0.10 - 1.20 k/uL Absolute Eos # 0.33 0.00 - 0.44 k/uL Basophils Absolute 0.08 0.00 - 0.20 k/uL Absolute Immature Granulocyte 0.04 0.00 - 0.30 k/uL Assessment : Primary Problem <principal problem not specified> Active Hospital Problems Diagnosis Date Noted Seizure-like activity (HCC) [R56.9] 11/27/2021 Priority: Medium Plan: Continue LTME Started on Lamictal 50mg, titrating to 100mg Wean off Keppra Resume Home meds Duloxetine, Mirtazapine, Ropinirole and Levothyroxine Follow-up further recommendations after discussing the case with attending The plan was discussed with the patient, patient's family and the medical staff. Consultations: None Patient is admitted as inpatient status because of co-morbidities listed above, severity of signs and symptoms as outlined, requirement for current medical therapies and most importantly because of direct risk to patient if care not provided in a hospital setting. Kristian Winston MD 11/28/2021 7:15 AM Copy sent to Dr. Lazaro Provider Associated attestation - Americo Cadet MD - 11/28/2021 9:05 PM EDT I have discussed the case of Gerardo Powell, including pertinent history and exam findings with the resident. I have seen and examined the patient and the ralph elements of the encounter have been performed by me. I agree with the assessment, plan and orders as documented by the resident with changes made to the note as needed. The patient has been admitted for elective admission for long-term EEG monitoring. Currently off antiepileptic medications. Will attempt sleep deprivation overnight and photic stimulation daily to provoke event Anticipate discharge home tomorrow Americo Cadet MD Neurology This note is created with the assistance of a speech-recognition program. While intending to generate a document that actually reflects the content of the visit, the document can still have some errors including those of syntax and sound a- like substitutions which may escape proofreading. In such instances, actual meaning can be extrapolated by contextual derivation. * Yumi Rodriguez RCP - 11/27/2021 5:18 PM EDT RT in to evaluate patient per oxygen protocol order. Patients saturation is 96% on room air and will not be placed on oxygen at this time. [facility] [employer] Phone: [email or web address] note* Diagnosis Seizure-like activity (HCC)- Primary Other convulsions documented in this encounter [facility] [employer] Phone: [email or web address] note* Diagnosis Abnormal involuntary movement- Primary Abnormal involuntary movements documented [facility] [place] [facility]* Diagnosis Seizure-like activity (HCC)- Primary Other convulsions documented in this encounter [facility] noteNo InformationN[employer] Other Evaluation noteNo assessment information available [facility] Work Phone: Hisfsmh general Narrative - Reported* Type Description Date Medical History epilepsy Medical History hypothyroid Medical History RLS Medical History asthma Surgical History cholecystectomy Surgical History hysterectomy Surgical History tubal ligation Surgical History left hip replacement Surgical History EMERSON carpal tunnel Surgical History x 1 Hospitalization History see above Hospitalization History seizures [facility] Other Hisillu general Narrative - Reported* Type Description Date Medical History epilepsy Medical History hypothyroid Medical History RLS Medical History asthma Medical History anemia Medical History Arthritis Medical History Asthma Medical History gall bladder disease Medical History high cholesterol Medical History migraine headaches Medical History obesity Medical History osteoporosis Medical History pneumonia Medical History chronic depression Medical History anxiety Surgical History cholecystectomy Surgical History hysterectomy Surgical History tubal ligation Surgical History left hip replacement Surgical History EMERSON carpal tunnel Surgical History x 1 Surgical History spine surgery Surgical History spinal tap Hospitalization History see above surg. hx. Hospitalization History seizures [facility] Other Hospital Discharge instructions Additional Instructions Take Motrin and Tylenol as needed for any recurrent headache. Continue take your Lamictal as prescribed. Follow-up with your PCP for reevaluation within 3 [facility]: Hospital Discharge instructions Additional Instructions Follow-up with your primary care doctor Return to ED if you develop worsening symptoms or concernsC[facility] Work Phone: Hospital Discharge instructions Additional Instructions The take your medication as prescribed for your migraines. Follow-up with your neurologist for ongoing [facility] Work Phone: Reason for referral (narrative)* Outpatient Procedure (Routine) - Pending Review Specialty Diagnoses / Procedures Referred By Steve pisano Referred To Contact [facility] Diagnoses Abnormal involuntary movement Procedures EPIL EEG LEAD PLACEMENT EEG EXTENDED MONITORING 61-119 MINUTES ELECTROENCEPHALOGRAM REC COMA/SLEEP ONLY Sin Christian APRN.CNP [address] [place] [address] [id number] [place] [address] Referral ID Status Reason Start Date Expiration Date Visits Requested Visits Authorized [id number] Pending Review Auto-Generat ed Referral 2 03/22/2023 1 1 [facility] Summary Purpose Family History No Family History Records Found Relationship Condition Age at Onset Recorded Date/T janet Not Specified Malignant neoplasm of breast Unknown Bipolar I disorder Unknown Cerebrovascular accident (CVA) Unknown Advance Directives No Advanced Directives Records FoundLatest Code Status on File Code Status Date Activated Date Inactivated Comments Full Code 11/27/2021 2:29 PM Full Code 11/27/2021 2:16 PM 11/27/2021 2:29 PM Advance Directive Response Recorded Date/ Time Advance Directives No January 12, 2021 6:24pm Advance Directive Response Recorded Date/ Time Advance Directives No January 12, 2021 5:24pm Chief Complaint and Reason for Visit Chief Complaint M54.12 radiculopathy r20.0 r20.2 Chief Complaint radiculopathy r20.0 r20.2 labs Chief Complaint labs Chief Complaint labs R76.0/m79.1 postitictal Chief Complaint Rash Chief Complaint Rash vomiting, shaky Chief Complaint Rash vomiting, shaky seizure migraine Reason for Referral Reason chronic neck and UE pains, elevated inflammatory markers, positive ANN-MARIE Diagnosis 1 Positive ANN-MARIE (antinu clear antibody) (R76.8) Referral Organization [facility] Referring Provider First Name Charlene Referring Provider Last Name [facility] Referring Provider Specialty [facility] [employer] Referred Organization [facility] Referred Address [address] [place], [place],[address] Referred Provider Specialty Rheumatology Referral Priority Routine Reason Multiple bulging cer vical discs symptomatic. Diagnosis 1 Cervical disc disord er (M50.90) Referral Organization [facility] Referring Provider First Name Charlene Referring Provider Last Name [facility] Referring Provider Specialty [facility] Referred Organization [facility] Referred Address [address] [place], [place],[address] Referred Provider Specialty Neurological Surgery Referral Priority Routine Additional Source Comments INFORMATION SOURCE (unrecogn ized section and content) DATE CREATED AUTHOR 10/01/2017 [facility] DATE CREATED AUTHOR AUTHOR'S ORGANIZ ATION 05/05/2021 [facility] DATE CREATED AUTHOR AUTHOR'S ORGANIZ ATION 09/21/2021 [facility] DATE CREATED AUTHOR AUTHOR'S ORGANIZ ATION 01/08/2022 [facility] DATE CREATED AUTHOR AUTHOR'S ORGANIZ ATION 05/22/2022 [facility] DATE CREATED AUTHOR AUTHOR'S ORGANIZ ATION 05/17/2023 [facility] Reason for Visit (unrecogniz ed section and content) Specialty Diagnoses / Procedures Referred By Contac t Referred To Contact Diagnoses Seizure-like activity (HCC) Procedures EEG video monitoring Quentin Larios MD [id number] Referral ID Status Reason Start Date Expiration Date Visits Re quested Visits Authorized [id number] Closed 11/21/2021 11/21/2022 1 1 Specialty Diagnoses / Procedures Referred By Contac t Referred To Contact Diagnoses Seizure-like activity (HCC) LTME for seizure like activity Procedures eeg Americo Cadet MD [address] [place] [address] [facility] [address] [place] [address] Referral ID Status Reason Start Date Expiration Date Visits Re quested Visits Authorized [id number] 1 1 Reason Comments Future Appointment [place], [place], Any Reason Comments New Patient Reason Comments Returning Patient's Call Reason Comments Medication Authorization Levothyroxine Reason Comments Refill Request Scheduled Active and Recently Administ ered Medications (unrecognized section and content) Medication Order 11/27/2021 11/28/2021 11/29/2021 DULoxetine (CYMBALTA) extended release capsule 120 mg 120 mg, Oral, EVERY MORNING, First dose on Sat11/28/21 at 0900, Until Discontinued, Do not crush or break. May add contents of capsule to apple juice or apple sauce, but not chocolate. 0932 (Given - Provider: Nuvia Bean RN) 08 (Given - Provider: Frank Nuñez, NED) enoxaparin (LOVENOX) injection 40 mg 40 mg, SubCUTAneous, DAILY, First dose on Sat11/27/21 at 1445, Until Discontinued, Indication of Use: Prophylaxis-DVT/PE 1601 (Not Given - Provider: Ebonie Mcallister RN - Reason: Patient/family refused) 0932 (Given - Provider: Nuvia Bean RN) 08 (Not Given - Provider: Frank Nuñez RN - Reason: Patient/family refused) levothyroxine (SYNTHROID) tablet 137 mcg 137 mcg, Oral, DAILY, First dose on Sat11/27/21 at 1445, Until Discontinued, Tube feeding (TF) interaction, obtain physician order to manage, recommend holding TF for 30 minutes before and after dose. 1549 (Given - Provider: Cameron Reed RN) 0932 (Given - Provider: Nuvia Bean RN) 0802 (Given - Provider: Frank Nuñez, NED) rOPINIRole (REQUIP) tablet 4 mg 4 mg, Oral, NIGHTLY, First dose on Sat11/27/21 at 2100, Until Discontinued 2029 (Given - Provider: Maria Darden RN) 220 (Given - Provider: Maria Darden RN) 2100 (Due) sodium chloride flush 0.9 % injection 5-40 mL 5-40 mL, IntraVENous, EVERY 12 HOURS SCHEDULED (2 times per day), First dose on Sat11/27/21 at 2100, Until Discontinued, For Line Patency: Peripheral IV = 5 mL; Midline or Central Line = 10 mL/lumen. If following IV push medication, administer flush at same rate as the IV push. Flush volume is determined by type of infusion therapy being given. For non-viscous solutions use: Peripheral IV = 5 mL Midline or Central Line = 10 mL/lumen For viscous solutions (i.e. blood components, parenteral nutrition, contrast media, or after obtaining blood sample) use: Peripheral IV = 10 mL Midline or Central Line = 20 mL/lumen 2029 (Given - Provider: Maria Darden RN) 09 (Given - Provider: Nuvia Bean RN)2206 (Given - Provider: Maria Darden RN) 08 (Given - Provider: Frank Nuñez RN)2100 (Due) PRN Medication Order 11/27/2021 11/28/2021 11/29/2021 0.9 % sodium chloride infusion IntraVENous, at 5-250 mL/hr, PRN, if patient receiving piggyback infusions and maintenance fluids are not ordered OR KVO fluids to protect IV site / prevent frequent line interruptions/ long duration, Starting on Sat11/27/21 at 1426, For piggyback infusion, administer at same rate as piggyback for a total of 25 mL. Enter 25 mL into dose field and piggyback rate into rate field of order. If piggyback is infusing at a rate less than 100 mL/hr, enter 25 mL into dose field and 100 mL/hr into rate field of order. For KVO fluids, enter rate of 20 mL/hr or less into rate field of order. acetaminophen (TYLENOL) suppository 650 mg(Linked Group 1) 650 mg, Rectal, EVERY 6 HOURS PRN, Starting on Sat11/27/21 at 1426, Until Discontinued, Pain Mild (1-3), Fever, For temp greater than 100.4 F (38 C), Administer if oral route cannot be used. 1434 (See Alternative - Provider: Nuvia Bean RN) 0938 (See Alternative - Provider: Frank Nuñez, RN) acetaminophen (TYLENOL) tablet 650 mg(Linked Group 1) 650 mg, Oral, EVERY 6 HOURS PRN, Starting on Sat11/27/21 at 1426, Until Discontinued, Pain Mild (1-3), Fever, For temp greater than 100.4 F (38 C), Maximum dose of acetaminophen is 4000 mg from all sources in 24 hours. 1434 (Given - Provider: Nuvia Bean RN) 0938 (Given - Provider: Frank Nuñez, RN) LORazepam (ATIVAN) injection 1 mg 1 mg, IntraVENous, EVERY 6 HOURS PRN, Starting on Sat11/27/21 at 1430, Until Discontinued, Seizures, give after 2 minutes of seizure and notify neuro resident prior to administration 1429 (Given - Provider: Nuvia Bean RN) ondansetron (ZOFRAN) injection 4 mg(Linked Group 2) 4 mg, IntraVENous, EVERY 6 HOURS PRN, Starting on Sat11/27/21 at 1426, Until Discontinued, Nausea, Vomiting, Administer if oral route cannot be used. ondansetron (ZOFRAN-ODT) disintegrating tablet 4 mg(Linked Group 2) 4 mg, Oral, EVERY 8 HOURS PRN, Starting on Sat11/27/21 at 1426, Until Discontinued, Nausea, Vomiting polyethylene glycol (GLYCOLAX) packet 17 g 17 g, Oral, DAILY PRN, Starting on Sat11/27/21 at 1426, Until Discontinued, Constipation, First line therapy for constipation sodium chloride flush 0.9 % injection 5-40 mL 5-40 mL, IntraVENous, PRN, Starting on Sat11/27/21 at 1426, Until Discontinued, Line Care, After every IV line use, For Line Patency: Peripheral IV = 5 mL; Midline or Central Line = 10 mL/lumen. If following IV push medication, administer flush at same rate as the IV push. Flush volume is determined by type of infusion therapy being given. For non-viscous solutions use: Peripheral IV = 5 mL Midline or Central Line = 10 mL/lumen For viscous solutions (i.e. blood components, parenteral nutrition, contrast media, or after obtaining blood sample) use: Peripheral IV = 10 mL Midline or Central Line = 20 mL/lumen Linked Groups Order Group 1: acetaminophen (TYLENOL) tablet 650 mgJump to med 650 mg, Oral, EVERY 6 HOURS PRN, Starting on Sat11/27/21 at 1426, Until Discontinued, Pain Mild (1-3), Fever, For temp greater than 100.4 F (38 C)
Maximum dose of acetaminophen is 4000 mg from all sources in 24 hours.
Or acetaminophen (TYLENOL) suppository 650 mgJump to med 650 mg, Rectal, EVERY 6 HOURS PRN, Starting on Sat11/27/21 at 1426, Until Discontinued, Pain Mild (1-3), Fever, For temp greater than 100.4 F (38 C)
Administer if oral route cannot be used.
Group 2: ondansetron (ZOFRAN-ODT) disintegrating tablet 4 mgJump to med 4 mg, Oral, EVERY 8 HOURS PRN, Starting on Sat11/27/21 at 1426, Until Discontinued, Nausea, Vomiting Or ondansetron (ZOFRAN) injection 4 mgJump to med 4 mg, IntraVENous, EVERY 6 HOURS PRN, Starting on Sat11/27/21 at 1426, Until Discontinued, Nausea, Vomiting
Administer if oral route cannot be used.
Source Comments (unrecognize d section and content) In the event this informatio n is protected by the Federal Confidentiality of Alcohol and Drug Abuse Patient Records regulations: The Federal rules restrict any use of the information to criminally investigate or prosecute any alcohol or drug abuse patient.[facility] Hospital[facility] the event this information is protected by the Federal Confidentiality of Alcohol and Drug Abuse Patient Records regulations: The Federal rules restrict any use of the information to criminally investigate or prosecute any alcohol or drug abuse patient.[facility] HospitalIn the event this information is protected by the Federal Confidentiality of Alcohol and Drug Abuse Patient Records regulations: The Federal rules restrict any use of the information to criminally investigate or prosecute any alcohol or drug abuse patient.[facility] HospitalIn the event this information is protected by the Federal Confidentiality of Alcohol and Drug Abuse Patient Records regulations: The Federal rules restrict any use of the information to criminally investigate or prosecute any alcohol or drug abuse patient.[facility] HospitalIn the event this information is protected by the Federal Confidentiality of Alcohol and Drug Abuse Patient Records regulations: The Federal rules restrict any use of the information to criminally investigate or prosecute any alcohol or drug abuse patient.[facility] HospitalIn the event this information is protected by the Federal Confidentiality of Alcohol and Drug Abuse Patient Records regulations: The Federal rules restrict any use of the information to criminally investigate or prosecute any alcohol or drug abuse patient.[facility] Care Teams (unrecognized sec tion and content) Net Developer Consultant Relationship Specialty Start Date End Date Charmaine Tomlin MD PCP - General Family Medicine 05/12/14 Americo Cadet MD [address] [address] Referring Neurology 01/04/22 Team Status: Active Member Role Status Dates Charlene Soriano , Primary Care Provider Active Team Status: Inactive Member Role Status Dates Charlene Soriano , DO Primary Care Provider, Attending Jami jenkins Active Team Status: Inactive Member Role Status Dates Charlene Soriano , Primary Care Provider Active Americo Cadet MD Attending Provider Active Net Developer Consultant Relationship Specialty Start Date End Date Charmaine Tomlin MD PCP - [facility] Family [facility] 05/12/14 Americo Cadet [facility] [address] Referring Neurology 01/04/22 Goals (unrecognized section and content) Goals may be documented in a n alternate section FOR RECORDS PERTAINING TO PATIENTS WHO ARE OR HAVE BEEN ENROLLED IN A CHEMICAL DEPENDENCY/SUBSTANCEABUSE PROGRAM, SOME INFORMATION MAY BE OMITTED. This clinical summary was aggregated from multiple sources. Caution should be exercised in using it in the provision of clinical care. This summary normalizes information from multiple sources, and as a consequence, information in this document may materially change the coding, format and clinical context of patient data. In addition, data may be omitted in some cases. CLINICAL DECISIONS SHOULD BE BASED ON THE PRIMARY CLINICAL RECORDS. [facility], [facility]. provides no warranty or guarantee of the accuracy or completeness of information in this document.
--- NOTE | 2023-06-08 20:54 | XR_ITS ---
The [address] [address] Patient Name: GERARDO POWELL MRN: [id number] date: 1975 Sex: F Assigned Patient Location: ER Current Patient Location: ER Accession/Order Number: [id number] Exam Date: 06/08/2023 21:02 Report Date: 06/08/2023 21:20 At the request of: GREGG HARPER Procedure: XR shoulder LT min 2V EXAM: XR shoulder LT min 2V HISTORY: left shoulder injury pain COMPARISON: None. TECHNIQUE: 3 views left shoulder FINDINGS: No acute fracture or aggressive osseous abnormality. Joint spaces and alignment are preserved. Imaged left lung is clear. XR/XR shoulder LT min 2V IMPRESSION: No acute osseous abnormality of the left shoulder. Electronically authenticated by: CHADD SOTO Date: 06/08/2023 21:20
--- NOTE | 2023-06-08 20:56 | ED.UPPEXIN1 ---
HPI - Extremity Injury (Upper) General Chief Complaint: Extremity Injury, Upper Stated Complaint: LT SHOULDER PAIN Time Seen by Provider: 06/08/23 20:36 Source: patient Mode of arrival: walk-in Limitations: no limitations History of Present Illness HPI narrative: Patient was lifting a weight yesterday when she suddenly ffelt pain in the lateral left shoulder - at the deltoid. Overnight the pain increased and now she has tingling down the left arm. Nothing taken at home for pain. She is right handed Related Data Home Medications Medication Instructions Recorded Confirmed amitriptyline 25 mg tablet 25 mg PO DAILY 06/08/23 06/08/23 duloxetine 60 mg capsule,delayed 120 mg PO DAILY 06/08/23 06/08/23 release lamotrigine 100 mg tablet 100 mg PO Q12H 06/08/23 06/08/23 lamotrigine 25 mg tablet 25 mg PO Q12H 06/08/23 06/08/23 levothyroxine 137 mcg tablet 137 mcg PO DAILY 06/08/23 06/08/23 ropinirole 4 mg tablet 4 mg PO DAILY 06/08/23 06/08/23 Previous Rx's Medication Instructions Recorded methocarbamol 750 mg tablet 750 mg PO Q6H PRN pain #30 tabs 06/08/23 nabumetone 750 mg tablet 750 mg PO BID PRN pain #14 tabs 06/08/23 Allergies Allergy/AdvReac Type Severity Reaction Status Date / Time aspirin AdvReac Verified 06/08/23 20:41 PFSH PFSH Social History Smoking status: Never smoker Exam Narrative Exam Narrative: Nurses notes and vital signs reviewed and patient is not hypoxic. Afebrile General: Well-appearing and in no apparent distress. Skin: Warm, dry, no pallor noted. Cardiovascular: Normal peripheral perfusion. Respiratory: No accessory muscle use or respiratory distress. Chest Wall: no chest wall tenderness. No clavicular tenderness, crepitus or subcutaneous emphysema Back: No midline thoracic vertebral tenderness. No left scapular tenderness. Mild lateral left trapezius tenderness. Musculoskeletal: Limited range of motion of the left shoulder secondary to pain. She has tenderness throughout the left deltoid. She also has some superior left shoulder tenderness. Any attempts to abduct or flex to full position causes increased pain. Passively she is able to rotate through these ranges of motion but it is painful for her. All of the areas of pain and tenderness are along the left deltoid with the exception of external rotation at the left shoulder, which causes pain at the posterior aspect of the left shoulder closer to the rhomboid Remainder of the left upper extremity with normal ROM, no distal soft tissue or bony tenderness, no upper extremity edema/swelling Neurological: A&O x4. No cranial nerve dysfunction observed. No truncal ataxia. Moves all extremities. Sensation intact. Psychiatric: Cooperative and interactive. Normal mood and affect. Constitutional Vital Signs, click to edit/add: Last Vital Signs Temp 98.1 F 06/08/23 20:36 Pulse 83 06/08/23 20:36 Resp 16 06/08/23 20:36 BP 142/78 H 06/08/23 20:36 Pulse Ox 96 06/08/23 20:36 O2 Del Method Room Air 06/08/23 20:36 Course Vital Signs Vital signs: Vital Signs Temperature 98.1 F 06/08/23 20:36 Pulse Rate 83 06/08/23 20:36 Respiratory Rate 16 06/08/23 20:36 Blood Pressure 142/78 H 06/08/23 20:36 Pulse Oximetry 96 06/08/23 20:36 Oxygen Delivery Method Room Air 06/08/23 20:36 Temperature 98.1 F 06/08/23 20:36 Pulse Rate 83 06/08/23 20:36 Respiratory Rate 16 06/08/23 20:36 Blood Pressure 142/78 H 06/08/23 20:36 Pulse Oximetry 96 06/08/23 20:36 Oxygen Delivery Method Room Air 06/08/23 20:36 MDM - Extremity Injury (Upper) MDM Narrative Medical decision making narrative: The patient was ordered to receive oral Toradol and oral Robaxin. X-rays of the left shoulder were obtained. No acute fracture or subluxation identified. Emergency department nurse applied a sling to the patient's left upper extremity I talked the patient about her results, diagnosis and treatment plan. We discussed exercises in order to keep the shoulder moving. She was discharged home with prescriptions for Relafen and Robaxin and referral to local orthopedist for follow-up if her pain did not improve within about a week. Imaging Data xr shoulder: Radiologist's impression: ITS Impressions Shoulder X-Ray 06/08/23 20:54 IMPRESSION: No acute osseous abnormality of the left shoulder. Electronically authenticated by: CHADD SOTO Date: 06/08/2023 21:20 Discharge Plan Discharge Chief Complaint: Extremity Injury, Upper Clinical Impression: Strain of left deltoid muscle Patient Disposition: Home, Self-Care Time of Disposition Decision: 21:09 Prescriptions / Home Meds: New nabumetone 750 mg tablet 750 mg PO BID PRN (Reason: pain) Qty: 14 0RF methocarbamol 750 mg tablet 750 mg PO Q6H PRN (Reason: pain) Qty: 30 0RF No Action amitriptyline 25 mg tablet 25 mg PO DAILY duloxetine 60 mg capsule,delayed release(DR/EC) 120 mg PO DAILY lamotrigine 100 mg tablet 100 mg PO Q12H lamotrigine 25 mg tablet 25 mg PO Q12H levothyroxine 137 mcg tablet 137 mcg PO DAILY ropinirole 4 mg tablet 4 mg PO DAILY Instructions: Shoulder Pain (ED), Early Postoperative or Post Injury Shoulder Exercises (ED) Referrals: Physician,Non-Staff, [Primary Care Provider] - 1 week Heriberto Rutledge MD [Physician] - 06/17/23 Stand Alone Forms: Portal Instructions
[2023-06-08] MEDS: KETOROLAC TROMETHAMINE 10 MG TABLET PO (21:12)
== END 2023-06-08 21:34 | disposition home or self-care (01) ==
PROVIDERS: Emergency Provider Emergency Medicine
DX: S46.812A Strain of other muscles, fascia and tendons at shoulder and upper arm level, left arm, initial encounter (principal); Z79.899 Other long term (current) drug therapy; Z79.890 Hormone replacement therapy; X50.0XXA Overexertion from strenuous movement or load, initial encounter
CPT/HCPCS: 73030; 99283